=== PATIENT | male | born 1970 | race African-American/Black ===

== ENCOUNTER 2016-11-27 11:07 | Inpatient (IN) | payer OTHER ==
[2016-11-27 11:32] VITALS: BMI 31.4
--- NOTE | 2016-11-27 12:51 | HP ---
COWS - Scale Resting Pulse: 0= OR 80 or Below Sweatin=Flushed/Facial Moisture Restless Observation: 1= Difficult to Sit Still Pupil Size: 0= Normal to Room Light Bone or Joint Aches: 2= Severe Diffuse Aches Runny Nose/ Eye Tearin= Runny Nose/Eyes GI Upset > 30mins: 1= Stomach Cramp Tremor Observation: 2= Slight Tremor Visible Yawning Observation: 2= >3x During Session Anxiety or Irritability: 2=Irritable/Anxious Goose Flesh Skin: 3=Piloerection COWS Score: 17 CIWA Score - CIWA Score Nausea/Vomitin-Mild Nausea/No Vomiting Muscle Tremors: 4-Moderate,w/Arms Extend Anxiety: 4-Mod. Anxious/Guarded Agitation: 4-Moderately Restless Paroxysmal Sweats: 3 Orientation: 0-Oriented Tacttile Disturbances: 0-None Auditory Disturbances: 0-None Visual Disturbances: 0-None Headache: 2-Mild CIWA-Ar Total Score: 18 Admission ROS BHS - HPI Chief Complaint: I am ready to detox Allergies/Adverse Reactions: Allergies Allergy/AdvReac Type Severity Reaction Status Date / Time No Known Allergies Allergy Verified 11/27/16 12:01 History of Present Illness: pt is a 46yr old male with a history of alcohol and heroin dependence seeking detox for treatment. Exam Limitations: No Limitations - Ebola screening Have you traveled outside of the country in the last 21 days: No Have you had contact with anyone from an Ebola affected area: No Have you been sick,other than usual withdrawal symptoms: No Do you have a fever: No - Review of Systems Constitutional: Chills, Diaphoresis, Loss of Appetite, Night Sweats, Unintentional Wgt. Loss EENT: reports: Tearing, Nose Congestion Respiratory: reports: Cough, Productive cough (yellowish/) GI: reports: No Symptoms Reported, Diarrhea, Poor Appetite, Poor Fluid Intake : reports: No Symptoms Reported Musculoskeletal: reports: No Symptoms Reported Integumentary: reports: Flushing, Sweating Neuro: reports: Headache Endocrine: reports: Excessive Sweating, Flushing, Intolerance to Cold, Intolerance to Heat Hematology: reports: No Symptoms Reported Psychiatric: reports: Judgement Intact, Mood/Affect Appropiate, Orientated x3, Agitated, Anxious Other Systems: Reviewed and Negative Patient History - Patient Medical History Hx Anemia: No Hx Asthma: No Hx Chronic Obstructive Pulmonary Disease (COPD): No Hx Cancer: No Hx Cardiac Disorders: No Hx Congestive Heart Failure: No Hx Hypertension: No Hx Hypercholesterolemia: No Hx Pacemaker: No HX Cerebrovascular Accident: No Hx Seizures: No Hx Dementia: No Hx Diabetes: No Hx Gastrointestinal Disorders: No Hx Liver Disease: No Hx Genitourinary Disorders: No Hx Sexually Transmitted Disorders: No Hx Renal Disease (ESRD): No Hx Thyroid Disease: No Hx Human Immunodeficiency Virus (HIV): No (NEGATIVE HX) Hx Hepatitis C: No Hx Depression: No Hx Suicide Attempt: No Hx Bipolar Disorder: No Hx Schizophrenia: No - Patient Surgical History Past Surgical History: No Hx Neurologic Surgery: No Hx Cataract Extraction: No Hx Cardiac Surgery: No Hx Lung Surgery: No Hx Breast Surgery: No Hx Breast Biopsy: No Hx Abdominal Surgery: No Hx Appendectomy: No Hx Cholecystectomy: No Hx Genitourinary Surgery: No Hx Section: No Hx Orthopedic Surgery: No Anesthesia Reaction: No - PPD History Previous Implant?: Yes Documented Results: Negative w/proof Implanted On Prior R Admission?: Yes Date: 03/12/16 Results: 0 mm PPD to be Administered?: No - Reproductive History Patient is a Female of Child Bearing Age (11 -55 yrs old): No - Smoking Cessation Smoking history: Current every day smoker Have you smoked in the past 12 months: Yes Aproximately how many cigarettes per day: 5 Hx Chewing Tobacco Use: No Initiated information on smoking cessation: Yes 'Breaking Loose' booklet given: 11/27/16 - Substance & Tx. History Hx Alcohol Use: Yes Hx Substance Use: Yes Substance Use Type: Alcohol, Cocaine, Heroin Hx Substance Use Treatment: Yes - Substances Abused Heroin Route: Inhalation Frequency: Daily Amount used: 10 bags Age of first use: 22 Date of Last Use: 11/27/16 Cocaine Route: Inhalation Frequency: 1-3 times last 30 days Amount used: $20 Age of first use: 28 Date of Last Use: 11/25/16 Alcohol-cognac/beer Route: Oral Frequency: Daily Amount used: 1 pt./1-6 pk. Age of first use: 23 Date of Last Use: 11/27/16 Family Disease History - Family Disease History Family Disease History: Heart Disease: Mother Admission Physical Exam BHS - Vital Signs Vital Signs: Vital Signs - 24 hr 11/27/16 11:31 Temperature 95.0 F L Pulse Rate 70 Respiratory 20 Rate Blood Pressure 160/93 - Physical General Appearance: Yes: Appropriately Dressed, Moderate Distress, Tremorous, Irritable, Sweating, Anxious HEENTM: Yes: Normal Voice, Nasal Congestion, Rhinorrhea Respiratory: Yes: Lungs Clear, Normal Breath Sounds, No Respiratory Distress Neck: Yes: No masses,lesions,Nodules Breast: Yes: Within Normal Limits Cardiology: Yes: Regular Rhythm, Regular Rate, S1, S2 Abdominal: Yes: Normal Bowel Sounds, Non Tender, Soft Genitourinary: Yes: Within Normal Limits Back: Yes: Normal Inspection Musculoskeletal: Yes: full range of Motion Extremities: Yes: Normal Capillary Refill, Normal Inspection, Non-Tender, Tremors Neurological: Yes: Fully Oriented, Alert, Normal Response Integumentary: Yes: Within Normal Limits, Normal Color, Diaphoresis Lymphatic: Yes: Within Normal Limits - Diagnostic (1) Alcohol dependence with uncomplicated withdrawal Current Visit: Yes Status: Chronic (2) Opioid dependence with withdrawal Current Visit: Yes Status: Chronic (3) Nicotine dependence Current Visit: Yes Status: Chronic Qualifiers: Nicotine product type: cigarettes Substance use status: uncomplicated Qualified Code(s): F17.210 - Nicotine dependence, cigarettes, uncomplicated (4) Weight loss Current Visit: Yes Status: Acute Cleared for Admission [facility] - Detox or Rehab [facility] Level of Care: Medically Managed Detox Regimen/Protocol: Methadone/Librium [facility] Breath Alcohol Content Breath Alcohol Content: 0 Urine Drug Screen - Results Drug Screen Negative: No Urine Drug Screen Results: ZION-Cocaine, OPI-Opiates, OXY-Oxycodone
[2016-11-27] MEDS ORDERED: MAGNESIUM HYDROX 2400MG/30ML ORAL SUSPENSION 30 ML CUP PO PRN (14:52)
[2016-11-27] MEDS ORDERED: P-EPHED 60MG/TRIPROLIDI 2.5MG TABLET PO PRN (14:52)
[2016-11-27] MEDS ORDERED: IBUPROFEN 400 MG TABLET (FP) PO PRN (14:52)
[2016-11-27] MEDS ORDERED: ACETAMINOPHEN 325 MG TABLET (FP) PO PRN (14:52)
[2016-11-27] MEDS ORDERED: LOPERAMIDE HCL 2 MG CAPSULE PO PRN (14:52)
[2016-11-27] MEDS ORDERED: MAGNESIUM CITRATE 300 ML BOTTLE PO PRN (14:52)
[2016-11-27] MEDS ORDERED: chlordiazePOXIDE HCL 25 MG CAPSULE PO PRN (14:52)
[2016-11-27] MEDS ORDERED: NICOTINE POLACRILEX 4 MG GUM BUC PRN (14:52)
[2016-11-27] MEDS ORDERED: MAG HYDROX/AL HYDROX/SIMETH 30 ML UNIT-DOSE CUP PO PRN (14:52)
[2016-11-27] MEDS ORDERED: MENTHOL/PHENOL 1 EACH UD MM PRN (14:52)
[2016-11-27] MEDS ORDERED: hydrOXYzine PAMOATE 50 MG CAPSULE (FP) PO PRN (14:52)
[2016-11-27] MEDS ORDERED: chlordiazePOXIDE HCL 25 MG CAPSULE PO ONE (15:15)
[2016-11-27] MEDS ORDERED: METHADONE HCL 10 MG TABLET (FOR DETOX USE ONLY) PO ONE ×2 (15:16→23:00)
--- NOTE | 2016-11-27 17:31 | CONSULT ---
[facility] Psychiatric Consult - Data Date of interview: 11/27/16 Admission source: [facility] Identifying data: Readmission to [facility] for this 46 y/o AA male seeking detox treatment on for alcohol,heroin and cocaine dependence.Patient is single without children,domiciled and employed (self-report). Substance Abuse History: - Smoking Cessation. Smoking history: Current every day smoker. Have you smoked in the past 12 months: Yes. Aproximately how many cigarettes per day: 5. Hx Chewing Tobacco Use: No. Initiated information on smoking cessation: Yes. 'Breaking Loose' booklet given: 11/27/16. - Substance & Tx. History. Hx Alcohol Use: Yes. Hx Substance Use: Yes. Substance Use Type : Alcohol, Cocaine, Heroin. Hx Substance Use Treatment: Yes. - Substances Abused. Heroin. Route: Inhalation. Frequency: Daily. Amount used: 10 bags. Age of first use: 22. Date of Last Use: 11/27/16. Cocaine. Route: Inhalation. Frequency: 1-3 times last 30 days. Amount used: $20. Age of first use: 28. Date of Last Use: 11/25/16. Alcohol-cognac/beer. Route: Oral. Frequency: Daily. Amount used: 1 pt./1-6 pk. Age of first use: 23. Date of Last Use: 11/27/16. Confirmed byb the patient in this session. Medical History: Patient endorses good general health. Psychiatric History: Patient denies.Mr Robertson only admits to a history of admissions to detox/rehabilitation units at various locations. Physical/Sexual Abuse/Trauma History: Patient denies. Additional Comment: Urine Drug Screen Results: ZION-Cocaine, OPI-Opiates, OXY- Oxycodone.Noted. Mental Status Exam - Mental Status Exam Alert and Oriented to: Time, Place, Person Cognitive Function: Good Patient Appearance: Well Groomed Mood: Nervous, Withdrawn Affect: Mood Congruent Patient Behavior: Sedated (mildly), Fatigued, Cooperative Speech Pattern: Clear Voice Loudness: Normal Thought Process: Goal Oriented Thought Disorder: Not Present Hallucinations: Denies Suicidal Ideation: Denies Homicidal Ideation: Denies Insight/Judgement: Poor Sleep: Fair Appetite: Good Muscle strength/Tone: Normal Gait/Station: Normal Psychiatric Findings - Problem List ([place] 1, 2,3) (1) Alcohol dependence with uncomplicated withdrawal Current Visit: Yes Status: Acute (2) Nicotine dependence Current Visit: Yes Status: Acute Qualifiers: Nicotine product type: cigarettes Substance use status: uncomplicated Qualified Code(s): F17.210 - Nicotine dependence, cigarettes, uncomplicated (3) Opioid dependence with withdrawal Current Visit: Yes Status: Acute (4) Cocaine dependence Current Visit: Yes Status: Acute (5) Substance induced mood disorder Current Visit: Yes Status: Acute - Initial Treatment Plan Initial Treatment Plan: Psychoeducation.Detoxification.Observation.
[2016-11-27] MEDS: chlordiazePOXIDE HCL 25 MG CAPSULE PO SCH ×2 (19:02→22:37)
[2016-11-27] MEDS: diphenhydrAMINE HCL 50 MG CAPSULE PO PRN (22:37)
[2016-11-27] MEDS: THIAMINE HCL 100 MG TABLET (FP) PO SCH (22:37)
[2016-11-28 03:16] LABS: URINE APPEARANCE SLCLOUDY; URINE BILIRUBIN NEGATIVE (NEGATIVE); URINE BLOOD NEGATIVE (NEGATIVE); URINE COLOR AMBER; URINE GLUCOSE (UA) NEGATIVE (NEGATIVE); URINE KETONE TRACE (NEGATIVE); URINE LEUK ESTERASE NEGATIVE (NEGATIVE); URINE NITRITE NEGATIVE (NEGATIVE); URINE PROTEIN NEGATIVE (NEGATIVE); URINE UROBILINOGEN NEGATIVE E.U./dl (0.2-1.0)
[2016-11-28] MEDS: chlordiazePOXIDE HCL 25 MG CAPSULE PO SCH ×4 (05:56→22:28)
[2016-11-28] MEDS ORDERED: METHADONE HCL 10 MG TABLET (FOR DETOX USE ONLY) PO SCH (10:00)
[2016-11-28] MEDS: PRENATAL VITAMINS W/ FOLIC ACID TABLET (FP) PO SCH (10:27)
[2016-11-28] MEDS: NICOTINE 21 MG/24 HOURS TOPICAL PATCH TD SCH (10:29)
[2016-11-28 11:11] LABS: ALBUMIN 4.1 g/dl (3.4-5.0); CALCIUM 9.3 mg/dL (8.5-10.1); CREATININE 1.5 mg/dL (0.7-1.3); MCH 32.4 pg (25.7-33.7); MEAN CELL VOLUME 95.2 fl (80-96); MEAN PLT VOLUME 8.1 fl (7.5-11.1); PLATELET COUNT 241 K/MM3 (134-434); WHITE BLOOD COUNT 5.6 K/mm3 (4.0-10.0)
[2016-11-28 11:13] LABS: BILIRUBIN,TOTAL 1.1 mg/dL (0.2-1.0); TOT PROT 7.3 g/dl (6.4-8.2)
--- NOTE | 2016-11-28 11:41 | PN ---
[facility] CIWA - CIWA Score Nausea/Vomitin Muscle Tremors: 3 Anxiety: 3 Agitation: 2 Paroxysmal Sweats: 1-Minimal Palms Moist Orientation: 0-Oriented Tacttile Disturbances: 1-Very Mild Itch/Numbness Auditory Disturbances: 1-Very Mild Visual Disturbances: 1-Very Mild Sensitivity Headache: 2-Mild CIWA-Ar Total Score: 17 BHS COWS - Scale Resting Pulse: 0= [place] 80 or Below Sweatin= Chills/Flushing Restless Observation: 3= Extraneous Movement Pupil Size: 1= Pupils >than Normal Bone or Joint Aches: 2= Severe Diffuse Aches Runny Nose/ Eye Tearin= Runny Nose/Eyes GI Upset > 30mins: 3= Vomiting/Diarrhea Tremor Observation of Outstretched Hands: 2= Slight Tremor Visible Yawning Observation: 1= 1-2x During Session Anxiety or Irritability: 2=Irritable/Anxious Goose Flesh Skin: 0=Smooth Skin COWS Score: 17 [facility] Progress Note (SOAP) Subjective: ALERT,IRRITABLE,ANXIOUS,INTERRUPTED SLEEP,TREMOR,PAIN IN THE BODY AND BACK Objective: 11/28/16 11:40 Vital Signs Temperature 97.7 F 11/28/16 09:42 Pulse Rate 70 11/28/16 09:42 Respiratory Rate 18 11/28/16 09:42 Blood Pressure 133/85 11/28/16 09:42 O2 Sat by Pulse Oximetry (%) EKG NSR,NORMAL ECG Laboratory Last Values WBC 5.6 K/mm3 (4.0-10.0) 11/28/16 06:20 RBC 4.46 M/mm3 (4.00-5.60) 11/28/16 06:20 Hgb 14.4 GM/dL (11.7-16.9) 11/28/16 06:20 Hct 42.4 % (35.4-49) 11/28/16 06:20 MCV 95.2 fl (80-96) 11/28/16 06:20 MCHC 34.0 g/dl (32.0-35.9) 11/28/16 06:20 RDW 13.0 % (11.9-15.9) 11/28/16 06:20 Plt Count 241 K/MM3 (134-434) 11/28/16 06:20 MPV 8.1 fl (7.5-11.1) 11/28/16 06:20 Sodium 140 mmol/L (136-145) 11/28/16 06:20 Potassium 3.9 mmol/L (3.5-5.1) 11/28/16 06:20 Chloride 102 mmol/L (98-107) 11/28/16 06:20 Carbon Dioxide 31 mmol/L (21-32) 11/28/16 06:20 Anion Gap 7 (8-16) L 11/28/16 06:20 BUN 16 mg/dL (7-18) 11/28/16 06:20 Creatinine 1.5 mg/dL (0.7-1.3) H D 11/28/16 06:20 Creat Clearance w eGFR 49.95 (>60) 11/28/16 06:20 Random Glucose 84 mg/dL (74-106) 11/28/16 06:20 Calcium 9.3 mg/dL (8.5-10.1) 11/28/16 06:20 Total Bilirubin 1.1 mg/dL (0.2-1.0) H D 11/28/16 06:20 AST 16 U/L (15-37) 11/28/16 06:20 ALT 21 U/L (12-78) 11/28/16 06:20 Alkaline Phosphatase 78 U/L (45-117) 11/28/16 06:20 Total Protein 7.3 g/dl (6.4-8.2) 11/28/16 06:20 Albumin 4.1 g/dl (3.4-5.0) 11/28/16 06:20 Urine Color Ketty 11/27/16 23:05 Urine Appearance Slcloudy 11/27/16 23:05 Urine pH 5.0 (5.0-8.0) D 11/27/16 23:05 Ur Specific [place] 1.033 (1.001-1.035) 11/27/16 23:05 Urine Protein Negative (NEGATIVE) 11/27/16 23:05 Urine Glucose (UA) Negative (NEGATIVE) 11/27/16 23:05 Urine Ketones Trace (NEGATIVE) H 11/27/16 23:05 Urine Blood Negative (NEGATIVE) 11/27/16 23:05 Urine Nitrite Negative (NEGATIVE) 11/27/16 23:05 Urine Bilirubin Negative (NEGATIVE) 11/27/16 23:05 Urine Urobilinogen Negative E.U./dl (0.2-1.0) 11/27/16 23:05 Ur Leukocyte Esterase Negative (NEGATIVE) 11/27/16 23:05 LABS PENDING Assessment: 11/28/16 11:41 WITHDRAWAL SYMPTOM Plan: CONTINUE DETOX
[2016-11-28] MEDS: guaiFENesin/D-METHORPHAN HB 10 ML UNIT-DOSE CUPS PO PRN ×2 (11:48→22:29)
--- NOTE | 2016-11-28 13:40 | EKG ---
Test Reason : Blood Pressure : / mmHG Vent. Rate : 061 BPM Atrial Rate : 061 BPM P-R Int : 174 ms QRS Dur : 106 ms QT Int : 386 ms P-R-T Axes : 064 051 044 degrees QTc Int : 388 ms NORMAL SINUS RHYTHM INCOMPLETE RBBB NO PREVIOUS ECGS AVAILABLE Confirmed by DIPTI ROBERTS MD ([id number]) on 11/28/2016 1:40:33 PM Referred By: Charli Parekh Confirmed By:DIPTI ROBERTS MD
[2016-11-28] MEDS: AMOX TR/POT CLAV 875MG/125MG TABLETS (FP) PO SCH (17:46)
[2016-11-28] MEDS: THIAMINE HCL 100 MG TABLET (FP) PO SCH (22:29)
[2016-11-29] MEDS: chlordiazePOXIDE HCL 25 MG CAPSULE PO SCH ×2 (05:20→10:18)
[2016-11-29] MEDS: AMOX TR/POT CLAV 875MG/125MG TABLETS (FP) PO SCH ×2 (08:01→17:29)
[2016-11-29] MEDS: PRENATAL VITAMINS W/ FOLIC ACID TABLET (FP) PO SCH (10:18)
[2016-11-29] MEDS: METHADONE HCL 5 MG TABLET (FOR DETOX USE ONLY) PO SCH (10:18)
[2016-11-29] MEDS: NICOTINE 21 MG/24 HOURS TOPICAL PATCH TD SCH (10:19)
[2016-11-29] MEDS: guaiFENesin/D-METHORPHAN HB 10 ML UNIT-DOSE CUPS PO PRN (12:15)
--- NOTE | 2016-11-29 14:15 | PN ---
[facility] CIWA - CIWA Score Nausea/Vomitin-No Nausea/No Vomiting Muscle Tremors: 4-Moderate,w/Arms Extend Anxiety: 3 Agitation: 3 Paroxysmal Sweats: 3 Orientation: 0-Oriented Tacttile Disturbances: 0-None Auditory Disturbances: 0-None Visual Disturbances: 0-None Headache: 0-None Present CIWA-Ar Total Score: 13 BHS COWS - Scale Resting Pulse: 0= ID 80 or Below Sweatin=Flushed/Facial Moisture Restless Observation: 1= Difficult to Sit Still Pupil Size: 0= Normal to Room Light Bone or Joint Aches: 1= Mild Discomfort Runny Nose/ Eye Tearin= Runny Nose/Eyes GI Upset > 30mins: 2= Nausea/Diarrhea Tremor Observation of Outstretched Hands: 2= Slight Tremor Visible Yawning Observation: 1= 1-2x During Session Anxiety or Irritability: 2=Irritable/Anxious Goose Flesh Skin: 0=Smooth Skin COWS Score: 13 [facility] Progress Note (SOAP) Subjective: anxiety,tremors,sweating,interrupted sleep,restless,muscle aches/spasm Objective: 11/29/16 14:14 Vital Signs - 8 hr 11/29/16 10:00 Temperature 97.9 F Pulse Rate 77 Respiratory 18 Rate Blood Pressure 136/85 Laboratory Tests 11/27/16 11/28/16 11/28/16 23:05 06:20 06:20 WBC 5.6 RBC 4.46 Hgb 14.4 Hct 42.4 MCV 95.2 MCHC 34.0 RDW 13.0 Plt Count 241 MPV 8.1 Sodium 140 Potassium 3.9 Chloride 102 Carbon Dioxide 31 Anion Gap 7 L BUN 16 Creatinine 1.5 H D Creat Clearance w eGFR 49.95 Random Glucose 84 Calcium 9.3 Total Bilirubin 1.1 H D AST 16 ALT 21 Alkaline Phosphatase 78 Total Protein 7.3 Albumin 4.1 Urine Color Ketty Urine Appearance Slcloudy Urine pH 5.0 D Ur Specific [place] 1.033 Urine Protein Negative Urine Glucose (UA) Negative Urine Ketones Trace H Urine Blood Negative Urine Nitrite Negative Urine Bilirubin Negative Urine Urobilinogen Negative Ur Leukocyte Esterase Negative RPR Titer 11/28/16 06:20 WBC RBC Hgb Hct MCV MCHC RDW Plt Count MPV Sodium Potassium Chloride Carbon Dioxide Anion Gap BUN Creatinine Creat Clearance w eGFR Random Glucose Calcium Total Bilirubin AST ALT Alkaline Phosphatase Total Protein Albumin Urine Color Urine Appearance Urine pH Ur Specific [place] Urine Protein Urine Glucose (UA) Urine Ketones Urine Blood Urine Nitrite Urine Bilirubin Urine Urobilinogen Ur Leukocyte Esterase RPR Titer Nonreactive labs noted Assessment: 11/29/16 14:14 withdrawal sx. Plan: continue detox
[2016-11-29] MEDS: chlordiazePOXIDE 5 MG CAPSULE PO SCH ×2 (17:30→22:42)
[2016-11-29] MEDS: THIAMINE HCL 100 MG TABLET (FP) PO SCH (22:41)
[2016-11-29] MEDS: diphenhydrAMINE HCL 50 MG CAPSULE PO PRN (22:41)
[2016-11-30] MEDS: AMOX TR/POT CLAV 875MG/125MG TABLETS (FP) PO SCH ×2 (07:39→17:01)
[2016-11-30] MEDS: chlordiazePOXIDE 5 MG CAPSULE PO SCH ×2 (07:39→10:29)
--- NOTE | 2016-11-30 10:25 | PN ---
BHS Progress Note (SOAP) Subjective: agitation sweats irritable diarrhea Objective: 11/30/16 10:23 Vital Signs Temperature 97.7 F 11/30/16 10:12 Pulse Rate 62 11/30/16 10:12 Respiratory Rate 18 11/30/16 10:12 Blood Pressure 134/85 11/30/16 10:12 O2 Sat by Pulse Oximetry (%) awake/alert ambulating no acute distress Assessment: 11/30/16 10:24 withdrawal sx Plan: continue detox increase fluids immodium prn
[2016-11-30] MEDS: NICOTINE 21 MG/24 HOURS TOPICAL PATCH TD SCH (10:29)
[2016-11-30] MEDS: PRENATAL VITAMINS W/ FOLIC ACID TABLET (FP) PO SCH (10:30)
[2016-11-30] MEDS: METHADONE HCL 5 MG TABLET (FOR DETOX USE ONLY) PO SCH (10:30)
[2016-11-30] MEDS: guaiFENesin/D-METHORPHAN HB 10 ML UNIT-DOSE CUPS PO PRN ×2 (12:47→22:34)
[2016-11-30] MEDS: chlordiazePOXIDE HCL 10 MG CAPSULE PO SCH ×3 (17:01→22:32)
[2016-11-30] MEDS: diphenhydrAMINE HCL 50 MG CAPSULE PO PRN (22:32)
[2016-11-30] MEDS: THIAMINE HCL 100 MG TABLET (FP) PO SCH (22:32)
[2016-12-01] MEDS: chlordiazePOXIDE HCL 10 MG CAPSULE PO SCH ×2 (05:38→10:46)
[2016-12-01] MEDS: AMOX TR/POT CLAV 875MG/125MG TABLETS (FP) PO SCH ×2 (07:49→17:08)
[2016-12-01] MEDS ORDERED: METHADONE HCL 10 MG TABLET (FOR DETOX USE ONLY) PO SCH (10:00)
[2016-12-01] MEDS: PRENATAL VITAMINS W/ FOLIC ACID TABLET (FP) PO SCH (10:46)
[2016-12-01] MEDS: NICOTINE 21 MG/24 HOURS TOPICAL PATCH TD SCH (10:47)
--- NOTE | 2016-12-01 11:51 | PN ---
BHS Progress Note (SOAP) Subjective: sweats Objective: 12/01/16 11:50 Vital Signs Temperature 98.2 F 12/01/16 10:04 Pulse Rate 79 12/01/16 10:04 Respiratory Rate 20 12/01/16 10:04 Blood Pressure 110/94 12/01/16 10:04 O2 Sat by Pulse Oximetry (%) Laboratory Tests 11/27/16 11/28/16 11/28/16 23:05 06:20 06:20 WBC 5.6 RBC 4.46 Hgb 14.4 Hct 42.4 MCV 95.2 MCHC 34.0 RDW 13.0 Plt Count 241 MPV 8.1 Sodium 140 Potassium 3.9 Chloride 102 Carbon Dioxide 31 Anion Gap 7 L BUN 16 Creatinine 1.5 H D Creat Clearance w eGFR 49.95 Random Glucose 84 Calcium 9.3 Total Bilirubin 1.1 H D AST 16 ALT 21 Alkaline Phosphatase 78 Total Protein 7.3 Albumin 4.1 Urine Color Ketty Urine Appearance Slcloudy Urine pH 5.0 D Ur Specific [place] 1.033 Urine Protein Negative Urine Glucose (UA) Negative Urine Ketones Trace H Urine Blood Negative Urine Nitrite Negative Urine Bilirubin Negative Urine Urobilinogen Negative Ur Leukocyte Esterase Negative RPR Titer 11/28/16 06:20 WBC RBC Hgb Hct MCV MCHC RDW Plt Count MPV Sodium Potassium Chloride Carbon Dioxide Anion Gap BUN Creatinine Creat Clearance w eGFR Random Glucose Calcium Total Bilirubin AST ALT Alkaline Phosphatase Total Protein Albumin Urine Color Urine Appearance Urine pH Ur Specific [place] Urine Protein Urine Glucose (UA) Urine Ketones Urine Blood Urine Nitrite Urine Bilirubin Urine Urobilinogen Ur Leukocyte Esterase RPR Titer Nonreactive pt aox3 in nad ambulating Assessment: 12/01/16 11:50 withdrawl sx's Plan: cont. detox increase fluids d/c in am
[2016-12-01] MEDS: guaiFENesin/D-METHORPHAN HB 10 ML UNIT-DOSE CUPS PO PRN (13:39)
[2016-12-01] MEDS: THIAMINE HCL 100 MG TABLET (FP) PO SCH (22:08)
[2016-12-01] MEDS: diphenhydrAMINE HCL 50 MG CAPSULE PO PRN (22:09)
[2016-12-02] MEDS ORDERED: METHADONE HCL 5 MG TABLET (FOR DETOX USE ONLY) PO SCH (06:00)
--- NOTE | 2016-12-02 09:14 | DS ---
[facility] Detox Discharge Summary Admission Date: 11/27/16 Discharge Date: 12/02/16 - History Present History: Alcohol Dependence, Cocaine Dependence, Opioid Dependence - Physical Exam Results Vital Signs: Vital Signs Temperature 98.2 F 12/02/16 06:49 Pulse Rate 64 12/02/16 06:49 Respiratory Rate 16 12/02/16 06:49 Blood Pressure 118/78 12/02/16 06:49 O2 Sat by Pulse Oximetry (%) - Treatment Hospital Course: Detox Protocol Followed, Detoxed Safely, Responded well, Discharged Condition Good, Rehab Referral Accepted - Medication Discharge Medications: Ambulatory Orders NK [No Known Home Medication] 08/16/15 - Diagnosis (1) Alcohol dependence with uncomplicated withdrawal Current Visit: Yes Status: Chronic (2) Opioid dependence with withdrawal Current Visit: Yes Status: Chronic (3) Nicotine dependence Current Visit: Yes Status: Chronic Qualifiers: Nicotine product type: cigarettes Substance use status: uncomplicated Qualified Code(s): F17.210 - Nicotine dependence, cigarettes, uncomplicated (4) Weight loss Current Visit: Yes Status: Acute - AMA Did Patient Leave Against Medical Advice: No
[2016-12-02 10:18] VITALS: BP 137/78; PULSE 72; TEMP 98.1
== END 2016-12-02 10:08 | disposition home or self-care (01) | DRG 773 ==
LOC: YASAS 11:07 → Y6N 13:14
PROVIDERS: ADMIT Internal Medicine; ATTEND Internal Medicine
PROC: HZ2ZZZZ Detoxification Services for Substance Abuse Treatment (ICD-10-PCS; principal; 2016-12-02)
DX: F11.23 Opioid dependence with withdrawal (principal); F10.230 Alcohol dependence with withdrawal, uncomplicated; F14.20 Cocaine dependence, uncomplicated; F19.24 Other psychoactive substance dependence with psychoactive substance-induced mood disorder; R63.4 Abnormal weight loss; Z68.31 Body mass index [BMI] 31.0-31.9, adult
CPT/HCPCS: 36415; 80053; 81003; 85027; 86593; 93005; 93010

== ENCOUNTER 2017-01-01 13:14 | Inpatient (IN) | payer OTHER ==
--- NOTE | 2017-01-01 16:55 | HP ---
COWS - Scale Resting Pulse: 0= [place] 80 or Below Sweatin=Flushed/Facial Moisture Restless Observation: 1= Difficult to Sit Still Pupil Size: 0= Normal to Room Light Bone or Joint Aches: 2= Severe Diffuse Aches Runny Nose/ Eye Tearin= Runny Nose/Eyes GI Upset > 30mins: 2= Nausea/Diarrhea Tremor Observation: 2= Slight Tremor Visible Yawning Observation: 2= >3x During Session Anxiety or Irritability: 2=Irritable/Anxious Goose Flesh Skin: 3=Piloerection COWS Score: 18 CIWA Score - CIWA Score Nausea/Vomitin-Mild Nausea/No Vomiting Muscle Tremors: 4-Moderate,w/Arms Extend Anxiety: 4-Mod. Anxious/Guarded Agitation: 4-Moderately Restless Paroxysmal Sweats: 3 Orientation: 0-Oriented Tacttile Disturbances: 0-None Auditory Disturbances: 0-None Visual Disturbances: 0-None Headache: 1-Very Mild CIWA-Ar Total Score: 17 Admission ROS BHS - HPI Chief Complaint: I need to stop using and get my life back. Allergies/Adverse Reactions: Allergies Allergy/AdvReac Type Severity Reaction Status Date / Time No Known Allergies Allergy Verified 01/01/17 16:37 History of Present Illness: pt is a 46yr old male with a chronic history of alcohol and heroin dependence seeking detox for treatment. Exam Limitations: No Limitations - Ebola screening Have you traveled outside of the country in the last 21 days: No Have you had contact with anyone from an Ebola affected area: No Have you been sick,other than usual withdrawal symptoms: No Do you have a fever: No - Review of Systems Constitutional: Chills, Diaphoresis, Loss of Appetite, Night Sweats, Changes in sleep, Unintentional Wgt. Loss EENT: reports: Blurred Vision, Tearing, Nose Congestion Respiratory: reports: No Symptoms reported Cardiac: reports: Lightheadedness GI: reports: Poor Appetite, Poor Fluid Intake : reports: No Symptoms Reported Musculoskeletal: reports: Back Pain, Joint Pain Integumentary: reports: Flushing, Sweating Endocrine: reports: Excessive Sweating, Flushing, Intolerance to Cold, Intolerance to Heat Hematology: reports: No Symptoms Reported Psychiatric: reports: Judgement Intact, Mood/Affect Appropiate, Orientated x3, Agitated, Anxious Other Systems: Reviewed and Negative Patient History - Patient Medical History Hx Anemia: No Hx Asthma: No Hx Chronic Obstructive Pulmonary Disease (COPD): No Hx Cancer: No Hx Cardiac Disorders: No Hx Congestive Heart Failure: No Hx Hypertension: No Hx Hypercholesterolemia: No Hx Pacemaker: No HX Cerebrovascular Accident: No Hx Seizures: No Hx Dementia: No Hx Diabetes: No Hx Gastrointestinal Disorders: No Hx Liver Disease: No Hx Genitourinary Disorders: No Hx Sexually Transmitted Disorders: No Hx Renal Disease (ESRD): No Hx Thyroid Disease: No Hx Human Immunodeficiency Virus (HIV): No (NEGATIVE HX) Hx Hepatitis C: No (negative) Hx Depression: No Hx Suicide Attempt: No Hx Bipolar Disorder: No Hx Schizophrenia: No - Patient Surgical History Past Surgical History: No Hx Neurologic Surgery: No Hx Cataract Extraction: No Hx Cardiac Surgery: No Hx Lung Surgery: No Hx Breast Surgery: No Hx Breast Biopsy: No Hx Abdominal Surgery: No Hx Appendectomy: No Hx Cholecystectomy: No Hx Genitourinary Surgery: No Hx Section: No Hx Orthopedic Surgery: No Anesthesia Reaction: No - PPD History Previous Implant?: Yes Documented Results: Negative w/proof Implanted On Prior R Admission?: Yes Date: 03/12/16 Results: 0 mm PPD to be Administered?: No - Reproductive History Patient is a Female of Child Bearing Age (11 -55 yrs old): No - Smoking Cessation Smoking history: Current every day smoker Have you smoked in the past 12 months: Yes Aproximately how many cigarettes per day: 5 Hx Chewing Tobacco Use: No Initiated information on smoking cessation: Yes 'Breaking Loose' booklet given: 01/01/17 - Substance & Tx. History Hx Alcohol Use: Yes Hx Substance Use: Yes Substance Use Type: Alcohol, Heroin Hx Substance Use Treatment: Yes - Substances Abused Heroin Route: Inhalation Frequency: Daily Amount used: 10 bags Age of first use: 22 Date of Last Use: 01/01/17 Alcohol-cognac Route: Oral Frequency: Daily Amount used: 1/2 ptShayan bateman Age of first use: 26 Date of Last Use: 12/31/16 Family Disease History - Family Disease History Family Disease History: Heart Disease: Mother Admission Physical Exam BHS - Vital Signs Vital Signs: Vital Signs - 24 hr 01/01/17 15:24 Temperature 98 F Pulse Rate 67 Respiratory 20 Rate Blood Pressure 133/83 - Physical General Appearance: Yes: Appropriately Dressed, Mild Distress, Tremorous, Irritable, Sweating, Anxious HEENTM: Yes: Hearing grossly Normal, Normal Voice, Nasal Congestion, Rhinorrhea Respiratory: Yes: Lungs Clear, Normal Breath Sounds, No Respiratory Distress Neck: Yes: No masses,lesions,Nodules Breast: Yes: Within Normal Limits Cardiology: Yes: Regular Rhythm, Regular Rate, S1, S2 Abdominal: Yes: Normal Bowel Sounds, Non Tender, Soft Genitourinary: Yes: Within Normal Limits Back: Yes: Normal Inspection Musculoskeletal: Yes: Within Normal Limits, Gait Steady, Back pain Extremities: Yes: Normal Capillary Refill, Non-Tender, Tremors Neurological: Yes: Fully Oriented, Alert, Normal Response Integumentary: Yes: Normal Color, Diaphoresis Lymphatic: Yes: Within Normal Limits - Diagnostic (1) Cocaine dependence Current Visit: Yes Status: Chronic Qualifiers: Substance use status: uncomplicated Qualified Code(s): F14.20 - Cocaine dependence, uncomplicated (2) Weight loss Current Visit: Yes Status: Chronic (3) Alcohol dependence with uncomplicated withdrawal Current Visit: Yes Status: Chronic (4) Nicotine dependence Current Visit: Yes Status: Chronic Qualifiers: Nicotine product type: cigarettes Substance use status: uncomplicated Qualified Code(s): F17.210 - Nicotine dependence, cigarettes, uncomplicated (5) Opioid dependence with withdrawal Current Visit: Yes Status: Chronic Cleared for Admission [facility] - Detox or Rehab [facility] Level of Care: Medically Managed Detox Regimen/Protocol: Methadone/Librium [facility] Breath Alcohol Content Breath Alcohol Content: 0 Urine Drug Screen - Results Drug Screen Negative: No Urine Drug Screen Results: ZION-Cocaine, OPI-Opiates
[2017-01-01] MEDS ORDERED: IBUPROFEN 400 MG TABLET (FP) PO PRN (16:59)
[2017-01-01] MEDS ORDERED: P-EPHED 60MG/TRIPROLIDI 2.5MG TABLET PO PRN (16:59)
[2017-01-01] MEDS ORDERED: ACETAMINOPHEN 325 MG TABLET (FP) PO PRN (16:59)
[2017-01-01] MEDS ORDERED: chlordiazePOXIDE HCL 25 MG CAPSULE PO PRN (16:59)
[2017-01-01] MEDS ORDERED: MAGNESIUM CITRATE 300 ML BOTTLE PO PRN (16:59)
[2017-01-01] MEDS ORDERED: MAGNESIUM HYDROX 2400MG/30ML ORAL SUSPENSION 30 ML CUP PO PRN (16:59)
[2017-01-01] MEDS ORDERED: MAG HYDROX/AL HYDROX/SIMETH 30 ML UNIT-DOSE CUP PO PRN (16:59)
[2017-01-01] MEDS ORDERED: LOPERAMIDE HCL 2 MG CAPSULE PO PRN (16:59)
[2017-01-01] MEDS ORDERED: guaiFENesin/D-METHORPHAN HB 10 ML UNIT-DOSE CUPS PO PRN (16:59)
[2017-01-01] MEDS ORDERED: MENTHOL/PHENOL 1 EACH UD MM PRN (16:59)
[2017-01-01] MEDS ORDERED: chlordiazePOXIDE HCL 25 MG CAPSULE PO ONE (18:00)
[2017-01-01] MEDS ORDERED: METHADONE HCL 10 MG TABLET (FOR DETOX USE ONLY) PO ONE ×2 (18:00→23:00)
[2017-01-01] MEDS: chlordiazePOXIDE HCL 25 MG CAPSULE PO SCH ×2 (19:18→22:04)
[2017-01-01] MEDS: hydrOXYzine PAMOATE 50 MG CAPSULE (FP) PO PRN (19:22)
[2017-01-01] MEDS: diphenhydrAMINE HCL 50 MG CAPSULE PO PRN (22:04)
[2017-01-01] MEDS: THIAMINE HCL 100 MG TABLET (FP) PO SCH (22:04)
[2017-01-01 22:32] LABS: URINE APPEARANCE CLEAR; URINE BILIRUBIN NEGATIVE (NEGATIVE); URINE BLOOD NEGATIVE (NEGATIVE); URINE COLOR YELLOW; URINE GLUCOSE (UA) NEGATIVE (NEGATIVE); URINE KETONE NEGATIVE (NEGATIVE); URINE LEUK ESTERASE NEGATIVE (NEGATIVE); URINE NITRITE NEGATIVE (NEGATIVE); URINE PROTEIN NEGATIVE (NEGATIVE); URINE UROBILINOGEN NEGATIVE E.U./dl (0.2-1.0)
[2017-01-02] MEDS: chlordiazePOXIDE HCL 25 MG CAPSULE PO SCH ×4 (06:09→23:23)
[2017-01-02] MEDS ORDERED: METHADONE HCL 10 MG TABLET (FOR DETOX USE ONLY) PO SCH (10:00)
[2017-01-02] MEDS: PRENATAL VITAMINS W/ FOLIC ACID TABLET (FP) PO SCH (10:11)
[2017-01-02 10:38] LABS: MCH 31.6 pg (25.7-33.7); MCHC 33.1 g/dl (32.0-35.9); MEAN CELL VOLUME 95.5 fl (80-96); MEAN PLT VOLUME 8.2 fl (7.5-11.1); PLATELET COUNT 261 K/MM3 (134-434); RDW 12.7 % (11.9-15.9); WHITE BLOOD COUNT 4.6 K/mm3 (4.0-10.0)
[2017-01-02 12:08] LABS: ALBUMIN 4.2 g/dl (3.4-5.0); BILIRUBIN,TOTAL 1.9 mg/dL (0.2-1.0); CALCIUM 9.1 mg/dL (8.5-10.1); CREATININE 1.3 mg/dL (0.7-1.3); TOT PROT 7.9 g/dl (6.4-8.2)
[2017-01-02] MEDS: hydrOXYzine PAMOATE 50 MG CAPSULE (FP) PO PRN ×2 (13:09→17:43)
--- NOTE | 2017-01-02 13:45 | PN ---
S CIWA - CIWA Score Nausea/Vomitin Muscle Tremors: 3 Anxiety: 2 Agitation: 3 Paroxysmal Sweats: 3 Orientation: 0-Oriented Tacttile Disturbances: 2-Mild Itch/Numbness/Burn Auditory Disturbances: 0-None Visual Disturbances: 2-Mild Sensitivity Headache: 0-None Present CIWA-Ar Total Score: 18 BHS COWS - Scale Resting Pulse: 0= [place] 80 or Below Sweatin= Chills/Flushing Restless Observation: 1= Difficult to Sit Still Pupil Size: 0= Normal to Room Light Bone or Joint Aches: 1= Mild Discomfort Runny Nose/ Eye Tearin= None GI Upset > 30mins: 2= Nausea/Diarrhea Tremor Observation of Outstretched Hands: 2= Slight Tremor Visible Yawning Observation: 1= 1-2x During Session Anxiety or Irritability: 2=Irritable/Anxious Goose Flesh Skin: 3=Piloerection COWS Score: 13 BHS Progress Note (SOAP) Subjective: Interrupted sleep, Sweating, Tremors, Nausea, Stomach Cramping. Objective: PT. A & O X 3. 01/02/17 13:44 Vital Signs Temperature 97.1 F L 01/02/17 13:03 Pulse Rate 79 01/02/17 13:03 Respiratory Rate 18 01/02/17 13:03 Blood Pressure 146/97 01/02/17 13:03 O2 Sat by Pulse Oximetry (%) Laboratory Last Values WBC 4.6 K/mm3 (4.0-10.0) 01/02/17 06:00 RBC 4.89 M/mm3 (4.00-5.60) 01/02/17 06:00 Hgb 15.5 GM/dL (11.7-16.9) 01/02/17 06:00 Hct 46.7 % (35.4-49) 01/02/17 06:00 MCV 95.5 fl (80-96) 01/02/17 06:00 MCHC 33.1 g/dl (32.0-35.9) 01/02/17 06:00 RDW 12.7 % (11.9-15.9) 01/02/17 06:00 Plt Count 261 K/MM3 (134-434) 01/02/17 06:00 MPV 8.2 fl (7.5-11.1) 01/02/17 06:00 Sodium 137 mmol/L (136-145) 01/02/17 06:00 Potassium 4.3 mmol/L (3.5-5.1) 01/02/17 06:00 Chloride 99 mmol/L (98-107) 01/02/17 06:00 Carbon Dioxide 32 mmol/L (21-32) 01/02/17 06:00 Anion Gap 6 (8-16) L 01/02/17 06:00 BUN 15 mg/dL (7-18) 01/02/17 06:00 Creatinine 1.3 mg/dL (0.7-1.3) 01/02/17 06:00 Creat Clearance w eGFR 58.92 (>60) 01/02/17 06:00 Random Glucose 89 mg/dL (74-106) 01/02/17 06:00 Calcium 9.1 mg/dL (8.5-10.1) 01/02/17 06:00 Total Bilirubin 1.9 mg/dL (0.2-1.0) H D 01/02/17 06:00 AST 20 U/L (15-37) D 01/02/17 06:00 ALT 26 U/L (12-78) D 01/02/17 06:00 Alkaline Phosphatase 77 U/L (45-117) 01/02/17 06:00 Total Protein 7.9 g/dl (6.4-8.2) 01/02/17 06:00 Albumin 4.2 g/dl (3.4-5.0) 01/02/17 06:00 Urine Color Yellow 01/01/17 21:37 Urine Appearance Clear 01/01/17 21:37 Urine pH 7.0 (5.0-8.0) D 01/01/17 21:37 Ur Specific [place] 1.026 (1.001-1.035) 01/01/17 21:37 Urine Protein Negative (NEGATIVE) 01/01/17 21:37 Urine Glucose (UA) Negative (NEGATIVE) 01/01/17 21:37 Urine Ketones Negative (NEGATIVE) 01/01/17 21:37 Urine Blood Negative (NEGATIVE) 01/01/17 21:37 Urine Nitrite Negative (NEGATIVE) 01/01/17 21:37 Urine Bilirubin Negative (NEGATIVE) 01/01/17 21:37 Urine Urobilinogen Negative E.U./dl (0.2-1.0) 01/01/17 21:37 Ur Leukocyte Esterase Negative (NEGATIVE) 01/01/17 21:37 LABS NOTED. Assessment: 01/02/17 13:45 WITHDRAWAL SYMPTOMS. Plan: CONTINUE DETOX.
[2017-01-02] MEDS: diphenhydrAMINE HCL 50 MG CAPSULE PO PRN (22:12)
[2017-01-02] MEDS: THIAMINE HCL 100 MG TABLET (FP) PO SCH (22:12)
[2017-01-03] MEDS: chlordiazePOXIDE HCL 25 MG CAPSULE PO SCH ×2 (05:31→10:14)
--- NOTE | 2017-01-03 08:48 | PN ---
S CIWA - CIWA Score Nausea/Vomitin Muscle Tremors: 2 Anxiety: 3 Agitation: 3 Paroxysmal Sweats: No Perspiration Orientation: 0-Oriented Tacttile Disturbances: 0-None Auditory Disturbances: 0-None Visual Disturbances: 0-None Headache: 3-Moderate CIWA-Ar Total Score: 14 BHS COWS - Scale Resting Pulse: 0= [place] 80 or Below Sweatin= Chills/Flushing Restless Observation: 1= Difficult to Sit Still Pupil Size: 1= Pupils >than Normal Bone or Joint Aches: 2= Severe Diffuse Aches Runny Nose/ Eye Tearin= Nasal Congestion GI Upset > 30mins: 2= Nausea/Diarrhea Tremor Observation of Outstretched Hands: 1= Tremor [place]by, Not Seen Yawning Observation: 1= 1-2x During Session Anxiety or Irritability: 2=Irritable/Anxious Goose Flesh Skin: 0=Smooth Skin COWS Score: 12 S Progress Note (SOAP) Subjective: Anxiety. Body Aches, Interrupted Sleep, Sweats, Tremors Objective: Vital Signs Temperature 96.8 F L 01/03/17 06:20 Pulse Rate 58 L 01/03/17 06:20 Respiratory Rate 18 01/03/17 06:20 Blood Pressure 117/74 01/03/17 06:20 O2 Sat by Pulse Oximetry (%) Laboratory Last Values WBC 4.6 K/mm3 (4.0-10.0) 01/02/17 06:00 RBC 4.89 M/mm3 (4.00-5.60) 01/02/17 06:00 Hgb 15.5 GM/dL (11.7-16.9) 01/02/17 06:00 Hct 46.7 % (35.4-49) 01/02/17 06:00 MCV 95.5 fl (80-96) 01/02/17 06:00 MCHC 33.1 g/dl (32.0-35.9) 01/02/17 06:00 RDW 12.7 % (11.9-15.9) 01/02/17 06:00 Plt Count 261 K/MM3 (134-434) 01/02/17 06:00 MPV 8.2 fl (7.5-11.1) 01/02/17 06:00 Sodium 137 mmol/L (136-145) 01/02/17 06:00 Potassium 4.3 mmol/L (3.5-5.1) 01/02/17 06:00 Chloride 99 mmol/L (98-107) 01/02/17 06:00 Carbon Dioxide 32 mmol/L (21-32) 01/02/17 06:00 Anion Gap 6 (8-16) L 01/02/17 06:00 BUN 15 mg/dL (7-18) 01/02/17 06:00 Creatinine 1.3 mg/dL (0.7-1.3) 01/02/17 06:00 Creat Clearance w eGFR 58.92 (>60) 01/02/17 06:00 Random Glucose 89 mg/dL (74-106) 01/02/17 06:00 Calcium 9.1 mg/dL (8.5-10.1) 01/02/17 06:00 Total Bilirubin 1.9 mg/dL (0.2-1.0) H D 01/02/17 06:00 AST 20 U/L (15-37) D 01/02/17 06:00 ALT 26 U/L (12-78) D 01/02/17 06:00 Alkaline Phosphatase 77 U/L (45-117) 01/02/17 06:00 Total Protein 7.9 g/dl (6.4-8.2) 01/02/17 06:00 Albumin 4.2 g/dl (3.4-5.0) 01/02/17 06:00 Urine Color Yellow 01/01/17 21:37 Urine Appearance Clear 01/01/17 21:37 Urine pH 7.0 (5.0-8.0) D 01/01/17 21:37 Ur Specific [place] 1.026 (1.001-1.035) 01/01/17 21:37 Urine Protein Negative (NEGATIVE) 01/01/17 21:37 Urine Glucose (UA) Negative (NEGATIVE) 01/01/17 21:37 Urine Ketones Negative (NEGATIVE) 01/01/17 21:37 Urine Blood Negative (NEGATIVE) 01/01/17 21:37 Urine Nitrite Negative (NEGATIVE) 01/01/17 21:37 Urine Bilirubin Negative (NEGATIVE) 01/01/17 21:37 Urine Urobilinogen Negative E.U./dl (0.2-1.0) 01/01/17 21:37 Ur Leukocyte Esterase Negative (NEGATIVE) 01/01/17 21:37 RPR Titer Nonreactive (NONREACTIVE) 01/02/17 06:00 labs noted Assessment: Withdrawal Symptoms Plan: Continue Detox
[2017-01-03] MEDS: METHADONE HCL 5 MG TABLET (FOR DETOX USE ONLY) PO SCH (10:14)
[2017-01-03] MEDS: PRENATAL VITAMINS W/ FOLIC ACID TABLET (FP) PO SCH (10:14)
--- NOTE | 2017-01-03 11:39 | EKG ---
Test Reason : Blood Pressure : / mmHG Vent. Rate : 068 BPM Atrial Rate : 068 BPM P-R Int : 176 ms QRS Dur : 100 ms QT Int : 388 ms P-R-T Axes : 072 062 051 degrees QTc Int : 412 ms NORMAL SINUS RHYTHM POSSIBLE LEFT ATRIAL ENLARGEMENT LEFT VENTRICULAR HYPERTROPHY ABNORMAL ECG WHEN COMPARED WITH ECG OF 27-NOV-2016 14:34, NO SIGNIFICANT CHANGE WAS FOUND Confirmed by PITA LEUNG MD ([id number]) on 01/03/2017 11:39:36 AM Referred By: Confirmed By:PITA LEUNG MD
[2017-01-03] MEDS: hydrOXYzine PAMOATE 50 MG CAPSULE (FP) PO PRN ×2 (12:48→17:33)
[2017-01-03] MEDS: chlordiazePOXIDE 5 MG CAPSULE PO SCH ×2 (17:34→22:09)
[2017-01-03] MEDS: diphenhydrAMINE HCL 50 MG CAPSULE PO PRN (22:09)
[2017-01-03] MEDS: THIAMINE HCL 100 MG TABLET (FP) PO SCH (22:09)
[2017-01-04] MEDS: chlordiazePOXIDE 5 MG CAPSULE PO SCH ×2 (06:09→10:04)
[2017-01-04] MEDS: METHADONE HCL 5 MG TABLET (FOR DETOX USE ONLY) PO SCH (10:04)
[2017-01-04] MEDS: PRENATAL VITAMINS W/ FOLIC ACID TABLET (FP) PO SCH (10:04)
--- NOTE | 2017-01-04 10:20 | PN ---
BHS Progress Note (SOAP) Subjective: Sweating,interrupted sleep,restless Objective: 01/04/17 10:16 Vital Signs - 8 hr 01/04/17 01/04/17 01/04/17 03:23 06:12 09:27 Temperature 96.8 F L 96.1 F L Pulse Rate 64 71 Respiratory 18 16 18 Rate Blood Pressure 130/80 143/88 Laboratory Last Values WBC 4.6 K/mm3 (4.0-10.0) 01/02/17 06:00 RBC 4.89 M/mm3 (4.00-5.60) 01/02/17 06:00 Hgb 15.5 GM/dL (11.7-16.9) 01/02/17 06:00 Hct 46.7 % (35.4-49) 01/02/17 06:00 MCV 95.5 fl (80-96) 01/02/17 06:00 MCHC 33.1 g/dl (32.0-35.9) 01/02/17 06:00 RDW 12.7 % (11.9-15.9) 01/02/17 06:00 Plt Count 261 K/MM3 (134-434) 01/02/17 06:00 MPV 8.2 fl (7.5-11.1) 01/02/17 06:00 Sodium 137 mmol/L (136-145) 01/02/17 06:00 Potassium 4.3 mmol/L (3.5-5.1) 01/02/17 06:00 Chloride 99 mmol/L (98-107) 01/02/17 06:00 Carbon Dioxide 32 mmol/L (21-32) 01/02/17 06:00 Anion Gap 6 (8-16) L 01/02/17 06:00 BUN 15 mg/dL (7-18) 01/02/17 06:00 Creatinine 1.3 mg/dL (0.7-1.3) 01/02/17 06:00 Creat Clearance w eGFR 58.92 (>60) 01/02/17 06:00 Random Glucose 89 mg/dL (74-106) 01/02/17 06:00 Calcium 9.1 mg/dL (8.5-10.1) 01/02/17 06:00 Total Bilirubin 1.9 mg/dL (0.2-1.0) H D 03/18/17 06:00 AST 20 U/L (15-37) D 01/02/17 06:00 ALT 26 U/L (12-78) D 01/02/17 06:00 Alkaline Phosphatase 77 U/L (45-117) 01/02/17 06:00 Total Protein 7.9 g/dl (6.4-8.2) 01/02/17 06:00 Albumin 4.2 g/dl (3.4-5.0) 01/02/17 06:00 Urine Color Yellow 01/01/17 21:37 Urine Appearance Clear 01/01/17 21:37 Urine pH 7.0 (5.0-8.0) D 01/01/17 21:37 Ur Specific [place] 1.026 (1.001-1.035) 01/01/17 21:37 Urine Protein Negative (NEGATIVE) 01/01/17 21:37 Urine Glucose (UA) Negative (NEGATIVE) 01/01/17 21:37 Urine Ketones Negative (NEGATIVE) 01/01/17 21:37 Urine Blood Negative (NEGATIVE) 01/01/17 21:37 Urine Nitrite Negative (NEGATIVE) 01/01/17 21:37 Urine Bilirubin Negative (NEGATIVE) 01/01/17 21:37 Urine Urobilinogen Negative E.U./dl (0.2-1.0) 01/01/17 21:37 Ur Leukocyte Esterase Negative (NEGATIVE) 01/01/17 21:37 RPR Titer Nonreactive (NONREACTIVE) 01/02/17 06:00 labs noted, Assessment: 01/04/17 10:18 Withdrawal sx. Plan: Continue detox
[2017-01-04] MEDS: hydrOXYzine PAMOATE 50 MG CAPSULE (FP) PO PRN ×2 (12:16→17:33)
[2017-01-04] MEDS: chlordiazePOXIDE HCL 10 MG CAPSULE PO SCH ×2 (17:34→22:13)
[2017-01-04] MEDS: THIAMINE HCL 100 MG TABLET (FP) PO SCH (22:03)
[2017-01-04] MEDS: diphenhydrAMINE HCL 50 MG CAPSULE PO PRN (22:03)
[2017-01-05] MEDS: chlordiazePOXIDE HCL 10 MG CAPSULE PO SCH ×2 (06:28→10:04)
--- NOTE | 2017-01-05 09:44 | PN ---
BHS Progress Note (SOAP) Subjective: Sweating,interrupted sleep,restless Objective: 01/05/17 09:43 Vital Signs - 8 hr 01/05/17 01/05/17 03:23 06:15 Temperature 97 F L Pulse Rate 63 Respiratory 18 18 Rate Blood Pressure 128/82 Assessment: 01/05/17 09:43 Withdrawal sx. Plan: Continue detox
[2017-01-05] MEDS ORDERED: METHADONE HCL 10 MG TABLET (FOR DETOX USE ONLY) PO SCH (10:00)
[2017-01-05] MEDS: PRENATAL VITAMINS W/ FOLIC ACID TABLET (FP) PO SCH (10:04)
[2017-01-05] MEDS: hydrOXYzine PAMOATE 50 MG CAPSULE (FP) PO PRN ×2 (12:38→18:34)
[2017-01-05] MEDS: diphenhydrAMINE HCL 50 MG CAPSULE PO PRN (22:04)
[2017-01-05] MEDS: THIAMINE HCL 100 MG TABLET (FP) PO SCH (22:04)
[2017-01-06] MEDS ORDERED: METHADONE HCL 5 MG TABLET (FOR DETOX USE ONLY) PO SCH (06:00)
[2017-01-06 06:33] VITALS: BP 127/83; PULSE 61; TEMP 96.8
[2017-01-06] MEDS: PRENATAL VITAMINS W/ FOLIC ACID TABLET (FP) PO SCH (09:14)
--- NOTE | 2017-01-06 09:27 | PN ---
S Progress Note (SOAP) Subjective: ALERT,NO COMPLAINT Objective: 01/06/17 09:25 Vital Signs Temperature 96.8 F L 01/06/17 06:30 Pulse Rate 61 01/06/17 06:30 Respiratory Rate 18 01/06/17 06:30 Blood Pressure 127/83 01/06/17 06:30 O2 Sat by Pulse Oximetry (%) Assessment: 01/06/17 09:26 DETOX COMPLETED,NO WITHDRAWAL SYMPTOM Plan: DISCHARGE TODAY,FOLLOW UP WITH AFTER CARE PROGRAM ARRANGEMENT
--- NOTE | 2017-01-06 09:30 | DS ---
[facility] Detox Discharge Summary Admission Date: 01/01/17 Discharge Date: 01/06/17 - History Present History: Alcohol Dependence, Cocaine Dependence, Opioid Dependence Additional Comments: FOLLOW UP WITH AFTER CARE PROGRAM ARRANGEMENT Pertinent Past History: WEIGHT LOSS - Physical Exam Results Vital Signs: Vital Signs Temperature 96.8 F L 01/06/17 06:30 Pulse Rate 61 01/06/17 06:30 Respiratory Rate 18 01/06/17 06:30 Blood Pressure 127/83 01/06/17 06:30 O2 Sat by Pulse Oximetry (%) Pertinent Admission Physical Exam Findings: WITHDRAWAL SYMPTOM - Treatment Hospital Course: Detox Protocol Followed, Detoxed Safely, Responded well, Discharged Condition Good, Rehab Referral Accepted Patient has Accepted a Rehab Referral to: [facility] - Medication Discharge Medications: Ambulatory Orders NK [No Known Home Medication] 08/16/15 - Diagnosis (1) Alcohol dependence with uncomplicated withdrawal Current Visit: Yes Status: Chronic (2) Cocaine dependence Current Visit: Yes Status: Chronic Qualifiers: Substance use status: uncomplicated Qualified Code(s): F14.20 - Cocaine dependence, uncomplicated (3) Nicotine dependence Current Visit: Yes Status: Chronic Qualifiers: Nicotine product type: cigarettes Substance use status: uncomplicated Qualified Code(s): F17.210 - Nicotine dependence, cigarettes, uncomplicated (4) Opioid dependence with withdrawal Current Visit: Yes Status: Chronic (5) Weight loss Current Visit: Yes Status: Chronic (6) Alcohol-induced mood disorder Current Visit: No Status: Acute - AMA Did Patient Leave Against Medical Advice: No
== END 2017-01-06 09:22 | disposition home or self-care (01) | DRG 773 ==
LOC: YASAS 13:14 → Y3N 17:48
PROVIDERS: ADMIT Internal Medicine Addiction Medicine; ATTEND Internal Medicine Addiction Medicine
PROC: HZ2ZZZZ Detoxification Services for Substance Abuse Treatment (ICD-10-PCS; principal; 2017-01-01)
DX: F11.23 Opioid dependence with withdrawal (principal); F10.230 Alcohol dependence with withdrawal, uncomplicated; F10.24 Alcohol dependence with alcohol-induced mood disorder; F14.20 Cocaine dependence, uncomplicated; F17.210 Nicotine dependence, cigarettes, uncomplicated; Z87.898 Personal history of other specified conditions
CPT/HCPCS: 36415; 80053; 81003; 85027; 86593; 93005; 93010

== ENCOUNTER 2017-03-22 09:49 | Inpatient (IN) | payer OTHER ==
[2017-03-22 11:37] VITALS: BMI 34.9
--- NOTE | 2017-03-22 12:44 | HP ---
COWS - Scale Resting Pulse: 0= [place] 80 or Below Sweatin=Flushed/Facial Moisture Restless Observation: 3= Extraneous Movement Pupil Size: 2= Moderately Dilated Bone or Joint Aches: 2= Severe Diffuse Aches Runny Nose/ Eye Tearin= Runny Nose/Eyes GI Upset > 30mins: 3= Vomiting/Diarrhea Tremor Observation: 2= Slight Tremor Visible Yawning Observation: 2= >3x During Session Anxiety or Irritability: 2=Irritable/Anxious Goose Flesh Skin: 0=Smooth Skin COWS Score: 20 Admission ROS BHS - HPI Chief Complaint: I NEED HELP TO STOP USING HEROIN Allergies/Adverse Reactions: Allergies Allergy/AdvReac Type Severity Reaction Status Date / Time No Known Allergies Allergy Verified 03/22/17 12:40 History of Present Illness: THIS 46 YEARS OLD MALE WITH HEROIN AND ALCOHOL DEPENDENCE,LAST DETOX [facility] FROM 01/01/17 TO 01/08/17 SEVERAL ADMISSIONS IN THE PAST BUT RELAPSED LONGEST PERIOD SOBRIETY 10 YEARS Exam Limitations: No Limitations - Ebola screening Have you traveled outside of the country in the last 21 days: No Have you had contact with anyone from an Ebola affected area: No Have you been sick,other than usual withdrawal symptoms: No Do you have a fever: No - Review of Systems Constitutional: Chills, Diaphoresis, Loss of Appetite, Malaise, Night Sweats, Changes in sleep, Weakness EENT: reports: Tearing, Nose Congestion Respiratory: reports: No Symptoms reported Cardiac: reports: Palpitations GI: reports: Diarrhea, Nausea, Poor Appetite, Abdominal cramping : reports: No Symptoms Reported Musculoskeletal: reports: Back Pain, Joint Pain, Muscle Pain, Joint Stiffness Integumentary: reports: Dryness Neuro: reports: Headache, Tremors Endocrine: reports: No Symptoms Reported Hematology: reports: No Symptoms Reported Psychiatric: reports: No Sypmtoms Reported Other Systems: Reviewed and Negative Patient History - Patient Medical History Hx Anemia: No Hx Asthma: No Hx Chronic Obstructive Pulmonary Disease (COPD): No Hx Cancer: No Hx Cardiac Disorders: No Hx Congestive Heart Failure: No Hx Hypertension: No Hx Hypercholesterolemia: No Hx Pacemaker: No HX Cerebrovascular Accident: No Hx Seizures: No Hx Dementia: No Hx Diabetes: No Hx Gastrointestinal Disorders: No Hx Liver Disease: No Hx Genitourinary Disorders: No Hx Sexually Transmitted Disorders: No Hx Renal Disease (ESRD): No Hx Thyroid Disease: No Hx Human Immunodeficiency Virus (HIV): No (NEGATIVE HX LAST 10/02) Hx Hepatitis C: No (negative) Hx Depression: No Hx Suicide Attempt: No Hx Bipolar Disorder: No Hx Schizophrenia: No Other Medical History: NO SUICIDAL,NO HOMICIDAL - Patient Surgical History Past Surgical History: No Hx Neurologic Surgery: No Hx Cataract Extraction: No Hx Cardiac Surgery: No Hx Lung Surgery: No Hx Breast Surgery: No Hx Breast Biopsy: No Hx Abdominal Surgery: No Hx Appendectomy: No Hx Cholecystectomy: No Hx Genitourinary Surgery: No Hx Section: No Hx Orthopedic Surgery: No Anesthesia Reaction: No - PPD History Previous Implant?: Yes Documented Results: Negative w/o proof Date: 03/12/16 Results: 0 mm PPD to be Administered?: Yes - Smoking Cessation Smoking history: Current every day smoker Have you smoked in the past 12 months: No Aproximately how many cigarettes per day: 10 Cigars Per Day: 0 Hx Chewing Tobacco Use: No Initiated information on smoking cessation: Yes 'Breaking Loose' booklet given: 03/22/17 - Substance & Tx. History Hx Alcohol Use: Yes Hx Substance Use: No Substance Use Type: Alcohol, Heroin Hx Substance Use Treatment: Yes ([facility] 01/01/17 TO 01/06/17) - Substances Abused Heroin Route: Inhalation Frequency: Daily Amount used: 12-13 bags Age of first use: 22 Date of Last Use: 03/21/17 Alcohol Route: Oral Frequency: 3-6 times per week Amount used: 1 pint cognac Age of first use: 29 Date of Last Use: 03/20/17 Family Disease History - Family Disease History Family Disease History: Heart Disease: Mother Admission Physical Exam [facility] - Vital Signs Vital Signs: Vital Signs - 24 hr 03/22/17 11:35 Temperature 97.3 F L Pulse Rate 73 Respiratory 20 Rate Blood Pressure 148/84 - Physical General Appearance: Yes: Moderate Distress, Tremorous, Irritable, Sweating, Anxious HEENTM: Yes: JATINDER, Nasal Congestion Respiratory: Yes: Within Normal Limits, Lungs Clear, No Respiratory Distress Neck: Yes: Within Normal Limits, Supple, Trachea in good position Breast: Yes: Within Normal Limits Cardiology: Yes: Within Normal Limits, Regular Rhythm, Regular Rate, S1, S2 Abdominal: Yes: Within Normal Limits, Normal Bowel Sounds, Non Tender, Soft Genitourinary: Yes: Within Normal Limits Back: Yes: Normal Inspection, Muscle Spasm Extremities: Yes: Within Normal Limits, Tremors Neurological: Yes: senior storage engineer II-XII NML intact, Alert, Motor Strength 5/5 Integumentary: Yes: Dry Lymphatic: Yes: Within Normal Limits - Diagnostic (1) Alcohol dependence with uncomplicated withdrawal Current Visit: No Status: Chronic (2) Nicotine dependence Current Visit: No Status: Chronic Qualifiers: Nicotine product type: cigarettes Substance use status: uncomplicated Qualified Code(s): F17.210 - Nicotine dependence, cigarettes, uncomplicated (3) Opioid dependence with withdrawal Current Visit: No Status: Chronic Cleared for Admission [facility] - Detox or Rehab [facility] Level of Care: Medically Managed Detox Regimen/Protocol: Methadone/Librium [facility] Breath Alcohol Content Breath Alcohol Content: 0 Urine Drug Screen - Results Drug Screen Negative: No Urine Drug Screen Results: ZION-Cocaine, OPI-Opiates, MTD-Methadone
[2017-03-22] MEDS ORDERED: ACETAMINOPHEN 325 MG TABLET (FP) PO PRN (12:58)
[2017-03-22] MEDS ORDERED: chlordiazePOXIDE HCL 25 MG CAPSULE PO PRN (12:58)
[2017-03-22] MEDS ORDERED: MAGNESIUM CITRATE 300 ML BOTTLE PO PRN (12:58)
[2017-03-22] MEDS ORDERED: MAGNESIUM HYDROX 2400MG/30ML ORAL SUSPENSION 30 ML CUP PO PRN (12:58)
[2017-03-22] MEDS ORDERED: MAG HYDROX/AL HYDROX/SIMETH 30 ML UNIT-DOSE CUP PO PRN (12:58)
[2017-03-22] MEDS ORDERED: LOPERAMIDE HCL 2 MG CAPSULE PO PRN (12:58)
[2017-03-22] MEDS ORDERED: guaiFENesin/D-METHORPHAN HB 10 ML UNIT-DOSE CUPS PO PRN (12:58)
[2017-03-22] MEDS ORDERED: MENTHOL/PHENOL 1 EACH UD MM PRN (12:58)
[2017-03-22] MEDS ORDERED: IBUPROFEN 400 MG TABLET (FP) PO PRN (12:58)
[2017-03-22] MEDS ORDERED: P-EPHED 60MG/TRIPROLIDI 2.5MG TABLET PO PRN (12:58)
[2017-03-22] MEDS ORDERED: chlordiazePOXIDE HCL 25 MG CAPSULE PO ONE (14:00)
[2017-03-22] MEDS ORDERED: METHADONE HCL 10 MG TABLET (FOR DETOX USE ONLY) PO ONE ×2 (14:00→23:00)
[2017-03-22] MEDS: CYCLOBENZAPRINE HCL 10 MG TABLET (FP) PO PRN (17:52)
[2017-03-22 19:01] LABS: URINE APPEARANCE CLEAR; URINE BILIRUBIN NEGATIVE (NEGATIVE); URINE BLOOD NEGATIVE (NEGATIVE); URINE COLOR YELLOW; URINE GLUCOSE (UA) NEGATIVE (NEGATIVE); URINE KETONE NEGATIVE (NEGATIVE); URINE LEUK ESTERASE NEGATIVE (NEGATIVE); URINE NITRITE NEGATIVE (NEGATIVE); URINE PROTEIN NEGATIVE (NEGATIVE); URINE UROBILINOGEN NEGATIVE E.U./dl (0.2-1.0)
[2017-03-22] MEDS: chlordiazePOXIDE HCL 25 MG CAPSULE PO SCH ×2 (21:40→22:11)
[2017-03-22] MEDS: THIAMINE HCL 100 MG TABLET (FP) PO SCH (22:09)
[2017-03-22] MEDS: diphenhydrAMINE HCL 50 MG CAPSULE PO PRN (22:10)
[2017-03-22] MEDS: cloNIDine HCL 0.1 MG TABLET PO SCH (22:10)
[2017-03-23] MEDS: chlordiazePOXIDE HCL 25 MG CAPSULE PO SCH ×2 (06:06→10:07)
[2017-03-23 09:13] LABS: HIV 1 & 2 AB NEGATIVE; HIV 1 AGp24 NEGATIVE
[2017-03-23] MEDS ORDERED: METHADONE HCL 10 MG TABLET (FOR DETOX USE ONLY) PO SCH (10:00)
[2017-03-23] MEDS: cloNIDine HCL 0.1 MG TABLET PO SCH ×2 (10:06→22:08)
[2017-03-23] MEDS: CYCLOBENZAPRINE HCL 10 MG TABLET (FP) PO PRN ×2 (10:06→22:08)
[2017-03-23] MEDS: PRENATAL VITAMINS W/ FOLIC ACID TABLET (FP) PO SCH (10:06)
[2017-03-23 10:10] LABS: MCH 31.1 pg (25.7-33.7); MEAN CELL VOLUME 91.4 fl (80-96); MEAN PLT VOLUME 8.2 fl (7.5-11.1); PLATELET COUNT 222 K/MM3 (134-434); RDW 12.6 % (11.9-15.9); WHITE BLOOD COUNT 4.2 K/mm3 (4.0-10.0)
--- NOTE | 2017-03-23 10:26 | PN ---
S Progress Note Note: pt states he will not be taking any librium because he does not drink everyday and does not have a drinking problem. His main concern/problem is heroin and only prefers to be on a methadone regimen. Pt understands that his libirum will be d/c and pt in agreement.
[2017-03-23 10:46] LABS: BILIRUBIN,TOTAL 1.7 mg/dL (0.2-1.0); CALCIUM 9.1 mg/dL (8.5-10.1); COCKROFT - GAULT 118.14; CREATININE 1.3 mg/dL (0.7-1.3); TOT PROT 7.7 g/dl (6.4-8.2)
--- NOTE | 2017-03-23 12:02 | EKG ---
Test Reason : Blood Pressure : / mmHG Vent. Rate : 071 BPM Atrial Rate : 071 BPM P-R Int : 178 ms QRS Dur : 100 ms QT Int : 396 ms P-R-T Axes : 065 057 044 degrees QTc Int : 430 ms NORMAL SINUS RHYTHM POSSIBLE LEFT ATRIAL ENLARGEMENT BORDERLINE ECG WHEN COMPARED WITH ECG OF 01-JAN-2017 18:28, NO SIGNIFICANT CHANGE WAS FOUND Confirmed by ADELIA MENDOSA MD ([id number]) on 03/23/2017 12:02:11 PM Referred By: Confirmed By:ADELIA MENDOSA MD
[2017-03-23] MEDS ORDERED: chlordiazePOXIDE HCL 25 MG CAPSULE PO SCH (17:00)
[2017-03-23] MEDS: diazePAM 5 MG TABLET PO PRN (19:05)
[2017-03-23] MEDS: THIAMINE HCL 100 MG TABLET (FP) PO SCH (22:09)
[2017-03-23] MEDS: diphenhydrAMINE HCL 50 MG CAPSULE PO PRN (22:09)
--- NOTE | 2017-03-24 09:57 | PN ---
S COWS - Scale Resting Pulse: 0= MO 80 or Below Sweatin=Flushed/Facial Moisture Restless Observation: 0= Sits Still Pupil Size: 0= Normal to Room Light Bone or Joint Aches: 2= Severe Diffuse Aches Runny Nose/ Eye Tearin= Nasal Congestion GI Upset > 30mins: 0= None Tremor Observation of Outstretched Hands: 1= Tremor [place], Not Seen Yawning Observation: 1= 1-2x During Session Anxiety or Irritability: 2=Irritable/Anxious Goose Flesh Skin: 3=Piloerection COWS Score: 12 S Progress Note (SOAP) Subjective: irritable agitation i dont want to take any librium sweats body aches Objective: 03/23/17 09:55 Vital Signs - 24 hr 03/23/17 03/23/17 03/23/17 10:49 14:05 17:22 Temperature 97.7 F 97 F L 97.5 F L Pulse Rate 77 66 66 Respiratory 16 20 18 Rate Blood Pressure 122/77 131/77 137/67 03/23/17 03/24/17 03/24/17 23:22 00:30 03:30 Temperature 97.3 F L Pulse Rate 74 Respiratory 16 18 18 Rate Blood Pressure 120/61 03/24/17 06:00 Temperature 96.3 F L Pulse Rate 70 Respiratory 18 Rate Blood Pressure 119/56 Laboratory Tests 03/22/17 03/22/17 03/23/17 15:00 17:51 06:00 WBC 4.2 RBC 4.80 Hgb 14.9 Hct 43.9 MCV 91.4 MCHC 34.0 RDW 12.6 Plt Count 222 MPV 8.2 Sodium Potassium Chloride Carbon Dioxide Anion Gap BUN Creatinine Creat Clearance w eGFR Random Glucose Calcium Total Bilirubin AST ALT Alkaline Phosphatase Total Protein Albumin Urine Color Yellow Urine Appearance Clear Urine pH 5.0 D Ur Specific [place] >= 1.030 H Urine Protein Negative Urine Glucose (UA) Negative Urine Ketones Negative Urine Blood Negative Urine Nitrite Negative Urine Bilirubin Negative Urine Urobilinogen Negative Ur Leukocyte Esterase Negative RPR Titer HIV 1&2 Antibody Screen Negative HIV P24 Antigen Negative 03/23/17 03/23/17 06:00 06:00 WBC RBC Hgb Hct MCV MCHC RDW Plt Count MPV Sodium 139 Potassium 4.4 Chloride 102 Carbon Dioxide 29 Anion Gap 8 BUN 15 Creatinine 1.3 Creat Clearance w eGFR 58.92 Random Glucose 80 Calcium 9.1 Total Bilirubin 1.7 H AST 50 H D ALT 39 D Alkaline Phosphatase 81 Total Protein 7.7 Albumin 4.0 Urine Color Urine Appearance Urine pH Ur Specific [place] Urine Protein Urine Glucose (UA) Urine Ketones Urine Blood Urine Nitrite Urine Bilirubin Urine Urobilinogen Ur Leukocyte Esterase RPR Titer Nonreactive HIV 1&2 Antibody Screen HIV P24 Antigen awake/alert ambulating no acute distress Assessment: 03/23/17 09:56 withdrawal sx Plan: continue detox with methadone regimen librium discontinued as per pt request increase fluids
--- NOTE | 2017-03-24 10:00 | PN ---
BHS COWS - Scale Resting Pulse: 0= [place] 80 or Below Sweatin=Flushed/Facial Moisture Restless Observation: 1= Difficult to Sit Still Pupil Size: 0= Normal to Room Light Bone or Joint Aches: 1= Mild Discomfort Runny Nose/ Eye Tearin= Nasal Congestion GI Upset > 30mins: 0= None Tremor Observation of Outstretched Hands: 2= Slight Tremor Visible Yawning Observation: 1= 1-2x During Session Anxiety or Irritability: 2=Irritable/Anxious Goose Flesh Skin: 0=Smooth Skin COWS Score: 10 BHS Progress Note (SOAP) Subjective: sweats irritable body aches feeling better Objective: 03/24/17 09:59 Vital Signs Temperature 96.3 F L 03/24/17 06:00 Pulse Rate 70 03/24/17 06:00 Respiratory Rate 18 03/24/17 06:00 Blood Pressure 119/56 03/24/17 06:00 O2 Sat by Pulse Oximetry (%) Laboratory Tests 03/22/17 03/22/17 03/23/17 15:00 17:51 06:00 WBC 4.2 RBC 4.80 Hgb 14.9 Hct 43.9 MCV 91.4 MCHC 34.0 RDW 12.6 Plt Count 222 MPV 8.2 Sodium Potassium Chloride Carbon Dioxide Anion Gap BUN Creatinine Creat Clearance w eGFR Random Glucose Calcium Total Bilirubin AST ALT Alkaline Phosphatase Total Protein Albumin Urine Color Yellow Urine Appearance Clear Urine pH 5.0 D Ur Specific [place] >= 1.030 H Urine Protein Negative Urine Glucose (UA) Negative Urine Ketones Negative Urine Blood Negative Urine Nitrite Negative Urine Bilirubin Negative Urine Urobilinogen Negative Ur Leukocyte Esterase Negative RPR Titer HIV 1&2 Antibody Screen Negative HIV P24 Antigen Negative 03/23/17 03/23/17 06:00 06:00 WBC RBC Hgb Hct MCV MCHC RDW Plt Count MPV Sodium 139 Potassium 4.4 Chloride 102 Carbon Dioxide 29 Anion Gap 8 BUN 15 Creatinine 1.3 Creat Clearance w eGFR 58.92 Random Glucose 80 Calcium 9.1 Total Bilirubin 1.7 H AST 50 H D ALT 39 D Alkaline Phosphatase 81 Total Protein 7.7 Albumin 4.0 Urine Color Urine Appearance Urine pH Ur Specific [place] Urine Protein Urine Glucose (UA) Urine Ketones Urine Blood Urine Nitrite Urine Bilirubin Urine Urobilinogen Ur Leukocyte Esterase RPR Titer Nonreactive HIV 1&2 Antibody Screen HIV P24 Antigen awake/alert ambulating no acute distress Assessment: 03/24/17 09:59 withdrawal sx Plan: continue detox increase fluids
[2017-03-24] MEDS: CYCLOBENZAPRINE HCL 10 MG TABLET (FP) PO PRN ×2 (10:17→22:22)
[2017-03-24] MEDS: METHADONE HCL 5 MG TABLET (FOR DETOX USE ONLY) PO SCH (10:17)
[2017-03-24] MEDS: diazePAM 5 MG TABLET PO PRN ×3 (10:17→22:22)
[2017-03-24] MEDS: PRENATAL VITAMINS W/ FOLIC ACID TABLET (FP) PO SCH (10:17)
[2017-03-24] MEDS: cloNIDine HCL 0.1 MG TABLET PO SCH ×2 (10:17→22:22)
[2017-03-24] MEDS ORDERED: chlordiazePOXIDE 5 MG CAPSULE PO SCH (17:00)
[2017-03-24] MEDS: hydrOXYzine PAMOATE 50 MG CAPSULE (FP) PO PRN (18:09)
[2017-03-24] MEDS: THIAMINE HCL 100 MG TABLET (FP) PO SCH (22:22)
[2017-03-24] MEDS: diphenhydrAMINE HCL 50 MG CAPSULE PO PRN (22:23)
[2017-03-25] MEDS: cloNIDine HCL 0.1 MG TABLET PO SCH ×2 (10:20→22:43)
[2017-03-25] MEDS: PRENATAL VITAMINS W/ FOLIC ACID TABLET (FP) PO SCH (10:20)
[2017-03-25] MEDS: CYCLOBENZAPRINE HCL 10 MG TABLET (FP) PO PRN ×2 (10:20→22:45)
[2017-03-25] MEDS: METHADONE HCL 5 MG TABLET (FOR DETOX USE ONLY) PO SCH (10:20)
--- NOTE | 2017-03-25 10:49 | PN ---
BHS Progress Note (SOAP) Subjective: little sweats agitation but feeling fine Objective: 03/25/17 10:49 Vital Signs Temperature 97.7 F 03/25/17 09:44 Pulse Rate 72 03/25/17 09:44 Respiratory Rate 18 03/25/17 09:44 Blood Pressure 123/72 03/25/17 09:44 O2 Sat by Pulse Oximetry (%) awake/alert ambulating no acute distress Assessment: 03/25/17 10:49 withdrawal sx Plan: continue detox increase fluids
[2017-03-25] MEDS ORDERED: chlordiazePOXIDE HCL 10 MG CAPSULE PO SCH (17:00)
[2017-03-25] MEDS: THIAMINE HCL 100 MG TABLET (FP) PO SCH (22:43)
[2017-03-25] MEDS: hydrOXYzine PAMOATE 50 MG CAPSULE (FP) PO PRN (22:45)
[2017-03-26] MEDS ORDERED: METHADONE HCL 10 MG TABLET (FOR DETOX USE ONLY) PO SCH (10:00)
--- NOTE | 2017-03-26 10:14 | PN ---
BHS Progress Note (SOAP) Subjective: little sweats feeling better Objective: 03/26/17 10:12 Vital Signs Temperature 97.7 F L 03/26/17 10:00 Pulse Rate 69 03/26/17 10:00 Respiratory Rate 16 03/26/17 10:00 Blood Pressure 125/74 03/26/17 10:00 O2 Sat by Pulse Oximetry (%) awake/alert ambulating no acute distress Assessment: 03/26/17 10:14 withdrawal sx Plan: continue detox increase fluids d/c in am
[2017-03-26] MEDS: PRENATAL VITAMINS W/ FOLIC ACID TABLET (FP) PO SCH (10:20)
[2017-03-26] MEDS: cloNIDine HCL 0.1 MG TABLET PO SCH ×2 (10:20→22:20)
[2017-03-26] MEDS: diphenhydrAMINE HCL 50 MG CAPSULE PO PRN (22:20)
[2017-03-26] MEDS: THIAMINE HCL 100 MG TABLET (FP) PO SCH (22:20)
[2017-03-26] MEDS: CYCLOBENZAPRINE HCL 10 MG TABLET (FP) PO PRN (22:20)
[2017-03-27] MEDS ORDERED: METHADONE HCL 5 MG TABLET (FOR DETOX USE ONLY) PO SCH (06:00)
[2017-03-27 06:21] VITALS: BP 141/87; PULSE 67; TEMP 97.3
--- NOTE | 2017-03-27 09:35 | PN ---
S Progress Note (SOAP) Subjective: ALERT,NO COMPLAINT Objective: 03/27/17 09:34 Vital Signs Temperature 97.3 F L 03/27/17 06:20 Pulse Rate 67 03/27/17 06:20 Respiratory Rate 18 03/27/17 06:20 Blood Pressure 141/87 03/27/17 06:20 O2 Sat by Pulse Oximetry (%) Assessment: 03/27/17 09:34 DETOX COMPLETED,NO WITHDRAWAL SYMPTOM Plan: DISCHARGE TODAY,FOLLOW UP WITH AFTER CARE PROGRAM ARRANGEMENT
--- NOTE | 2017-03-27 09:36 | DS ---
[facility] Detox Discharge Summary Admission Date: 03/22/17 Discharge Date: 03/27/17 - History Present History: Alcohol Dependence, Opioid Dependence Additional Comments: FOLLOW UP WITH [facility] Pertinent Past History: NICOTINE DEPENDENCE - Physical Exam Results Vital Signs: Vital Signs Temperature 97.3 F L 03/27/17 06:20 Pulse Rate 67 03/27/17 06:20 Respiratory Rate 18 03/27/17 06:20 Blood Pressure 141/87 03/27/17 06:20 O2 Sat by Pulse Oximetry (%) Pertinent Admission Physical Exam Findings: WITHDRAWAL SYMPTOM - Treatment Hospital Course: Detox Protocol Followed, Detoxed Safely, Responded well, Discharged Condition Good, Rehab Referral Accepted Patient has Accepted a Rehab Referral to: [facility] - Medication Discharge Medications: Ambulatory Orders NK [No Known Home Medication] 08/16/15 - Diagnosis (1) Alcohol dependence with uncomplicated withdrawal Current Visit: No Status: Chronic (2) Nicotine dependence Current Visit: No Status: Chronic Qualifiers: Nicotine product type: cigarettes Substance use status: uncomplicated Qualified Code(s): F17.210 - Nicotine dependence, cigarettes, uncomplicated (3) Opioid dependence with withdrawal Current Visit: No Status: Chronic - AMA Did Patient Leave Against Medical Advice: No
== END 2017-03-27 09:52 | disposition home or self-care (01) | DRG 773 ==
LOC: YASAS 09:49 → Y6N 13:08
PROVIDERS: ADMIT Internal Medicine; ATTEND Internal Medicine
PROC: HZ2ZZZZ Detoxification Services for Substance Abuse Treatment (ICD-10-PCS; principal; 2017-03-22)
DX: F11.23 Opioid dependence with withdrawal (principal); F10.230 Alcohol dependence with withdrawal, uncomplicated; F17.210 Nicotine dependence, cigarettes, uncomplicated
CPT/HCPCS: 36415; 80053; 81003; 85027; 86593; 87389; 93005; 93010; J0735

== ENCOUNTER 2017-05-20 09:48 | Inpatient (IN) | payer OTHER ==
[2017-05-20 10:36] VITALS: BMI 36.9
--- NOTE | 2017-05-20 13:24 | HP ---
Admission [facility] - [facility] Chief Complaint: REHAB TX FOR ALCOHOL AND DRUGS DEPENDENCE Allergies/Adverse Reactions: Allergies Allergy/AdvReac Type Severity Reaction Status Date / Time No Known Allergies Allergy Verified 05/20/17 12:58 History of Present Illness: 46 Y/O AA/MALE WITH A HX OF HEROIN AND ALCOHOL DEPENDENCE SEEKING REHAB TX. PT STATES HE WAS LEFT DETOX AT [facility] TWO WEEKS AGO. Exam Limitations: No Limitations - Ebola screening Have you traveled outside of the country in the last 21 days: No Have you had contact with anyone from an Ebola affected area: No Have you been sick,other than usual withdrawal symptoms: No Do you have a fever: No - Review of Systems Constitutional: Chills, Night Sweats, Changes in sleep EENT: reports: Tearing, Nose Congestion Respiratory: reports: No Symptoms reported Cardiac: reports: Lightheadedness GI: reports: Constipated, Diarrhea, Nausea, Poor Fluid Intake, Vomiting : reports: Frequency Musculoskeletal: reports: Back Pain, Joint Pain, Muscle Pain Integumentary: reports: No Symptoms Reported Neuro: reports: Headache, Numbness, Tingling, Tremors, Unsteady Gait, Dizziness Endocrine: reports: No Symptoms Reported Hematology: reports: No Symptoms Reported Psychiatric: reports: Orientated x3, Anxious Other Systems: Reviewed and Negative Patient History - Patient Medical History Hx Anemia: No Hx Asthma: No Hx Chronic Obstructive Pulmonary Disease (COPD): No Hx Cancer: No Hx Cardiac Disorders: No Hx Congestive Heart Failure: No Hx Hypertension: No Hx Hypercholesterolemia: No Hx Pacemaker: No HX Cerebrovascular Accident: No Hx Seizures: No Hx Dementia: No Hx Diabetes: No Hx Gastrointestinal Disorders: No Hx Liver Disease: No Hx Genitourinary Disorders: No Hx Sexually Transmitted Disorders: No (DENIES) Hx Renal Disease (ESRD): No Hx Thyroid Disease: No Hx Human Immunodeficiency Virus (HIV): No (NEGATIVE HX LAST 10/02) Hx Hepatitis C: No (NEGATIVE) Hx Depression: No Hx Suicide Attempt: No (DENIES) Hx Bipolar Disorder: No Hx Schizophrenia: No - Patient Surgical History Past Surgical History: No Hx Neurologic Surgery: No Hx Cataract Extraction: No Hx Cardiac Surgery: No Hx Lung Surgery: No Hx Breast Surgery: No Hx Breast Biopsy: No Hx Abdominal Surgery: No Hx Appendectomy: No Hx Cholecystectomy: No Hx Genitourinary Surgery: No Hx Orthopedic Surgery: No Anesthesia Reaction: No - PPD History Previous Implant?: Yes Documented Results: Negative w/proof Implanted On Prior R Admission?: Yes Date: 03/24/17 Results: 0 mm PPD to be Administered?: No - Reproductive History Patient is a Female of Child Bearing Age (11 -55 yrs old): No (MALE) Patient : (N/A) - Smoking Cessation Smoking history: Current every day smoker Have you smoked in the past 12 months: No Aproximately how many cigarettes per day: 10 Cigars Per Day: 0 Hx Chewing Tobacco Use: No Initiated information on smoking cessation: Yes 'Breaking Loose' booklet given: 05/20/17 - Substance & Tx. History Hx Alcohol Use: Yes (JIAN) Hx Substance Use: Yes (HEROIN/COCAINE) Substance Use Type: Alcohol, Cocaine, Heroin Hx Substance Use Treatment: Yes ( LAST TX AT [facility]OX 2 WEEKS AGO) - Substances Abused Heroin Route: Inhalation Frequency: Daily Amount used: 1 bag Age of first use: 22 Date of Last Use: 05/18/17 Alcohol-cognac Route: Oral Frequency: Daily Amount used: 1/2 cup Age of first use: 28 Date of Last Use: 05/18/17 Family Disease History - Family Disease History Family Disease History: Heart Disease: Mother Admission Physical Exam S - Vital Signs Vital Signs: Vital Signs - 24 hr 05/20/17 10:34 Temperature 97.8 F Pulse Rate 67 Respiratory 19 Rate Blood Pressure 150/78 - Physical General Appearance: Yes: Moderate Distress, Irritable, Anxious HEENTM: Yes: EOMI, Normocephalic, JATINDER, Pharynx Normal Respiratory: Yes: Chest Non-Tender, Lungs Clear, Normal Breath Sounds, No Respiratory Distress Neck: Yes: No masses,lesions,Nodules, Supple, Trachea in good position Breast: Yes: Breast Exam Deferred Cardiology: Yes: Regular Rhythm, Regular Rate, S1, S2 Abdominal: Yes: Normal Bowel Sounds, Non Tender, Soft Genitourinary: Yes: Other (N/C) Back: Yes: Within Normal Limits Musculoskeletal: Yes: full range of Motion, Gait Steady Extremities: Yes: Normal Range of Motion, Non-Tender Neurological: Yes: rubber insulator II-XII NML intact, Fully Oriented, Alert, Motor Strength 5/5 Integumentary: Yes: Dry, Warm Lymphatic: Yes: Within Normal Limits - Diagnostic (1) Alcohol dependence with uncomplicated withdrawal Current Visit: Yes Status: Chronic (2) Cocaine dependence Current Visit: Yes Status: Chronic Qualifiers: Substance use status: uncomplicated Qualified Code(s): F14.20 - Cocaine dependence, uncomplicated (3) Nicotine dependence Current Visit: Yes Status: Acute Qualifiers: Nicotine product type: cigarettes Substance use status: in withdrawal Qualified Code(s): F17.213 - Nicotine dependence, cigarettes, with withdrawal (4) Opioid dependence with withdrawal Current Visit: Yes Status: Chronic Cleared for Admission BHS - Detox or Rehab Claeared for Rehab Admission: Yes S Breath Alcohol Content Breath Alcohol Content: 0 Urine Drug Screen - Results Drug Screen Negative: No Urine Drug Screen Results: ZION-Cocaine, OPI-Opiates, MTD-Methadone
[2017-05-20] MEDS ORDERED: MENTHOL/PHENOL 1 EACH UD MM PRN (13:32)
[2017-05-20] MEDS ORDERED: guaiFENesin/D-METHORPHAN HB 10 ML UNIT-DOSE CUPS PO PRN (13:32)
[2017-05-20] MEDS ORDERED: ACETAMINOPHEN 325 MG TABLET (FP) PO PRN (13:32)
[2017-05-20] MEDS ORDERED: hydrOXYzine PAMOATE 50 MG CAPSULE (FP) PO PRN (13:32)
[2017-05-20] MEDS ORDERED: MAG HYDROX/AL HYDROX/SIMETH 30 ML UNIT-DOSE CUP PO PRN (13:32)
[2017-05-20] MEDS ORDERED: MAGNESIUM HYDROX 2400MG/30ML ORAL SUSPENSION 30 ML CUP PO PRN (13:32)
[2017-05-20] MEDS ORDERED: MAGNESIUM CITRATE 300 ML BOTTLE PO PRN (13:32)
[2017-05-20] MEDS ORDERED: NICOTINE POLACRILEX 2 MG GUM BUC PRN (13:32)
[2017-05-20] MEDS ORDERED: P-EPHED 60MG/TRIPROLIDI 2.5MG TABLET PO PRN (13:32)
[2017-05-20] MEDS ORDERED: LOPERAMIDE HCL 2 MG CAPSULE PO PRN (13:32)
[2017-05-20] MEDS ORDERED: diphenhydrAMINE HCL 50 MG CAPSULE PO PRN (13:32)
[2017-05-20] MEDS ORDERED: IBUPROFEN 400 MG TABLET (FP) PO PRN (13:32)
[2017-05-20] MEDS: NICOTINE 14 MG/24 HOURS TOPICAL PATCH TD SCH (14:40)
[2017-05-20 15:30] LABS: MCH 31.2 pg (25.7-33.7); MCHC 34.5 g/dl (32.0-35.9); MEAN CELL VOLUME 90.4 fl (80-96); PLATELET COUNT 230 K/MM3 (134-434); RDW 12.9 % (11.9-15.9); WHITE BLOOD COUNT 6.1 K/mm3 (4.0-10.0)
[2017-05-20 15:41] LABS: ALBUMIN 3.8 g/dl (3.4-5.0); ANION GAP 4 (8-16); CALCIUM 9.1 mg/dL (8.5-10.1); CO2 32 mmol/L (21-32); CREATININE 1.3 mg/dL (0.7-1.3); GLUCOSE,RANDOM 111 mg/dL (74-106); SGOT/AST 32 U/L (15-37); SGPT/ALT 38 U/L (12-78)
[2017-05-20 15:43] LABS: ALK PHOS 76 U/L (45-117); BILIRUBIN,TOTAL 0.8 mg/dL (0.2-1.0); TOT PROT 7.5 g/dl (6.4-8.2)
[2017-05-20] MEDS ORDERED: THIAMINE HCL 100 MG TABLET (FP) PO SCH (22:00)
[2017-05-20 23:07] LABS: URINE APPEARANCE CLEAR; URINE BILIRUBIN NEGATIVE (NEGATIVE); URINE BLOOD NEGATIVE (NEGATIVE); URINE COLOR YELLOW; URINE GLUCOSE (UA) NEGATIVE (NEGATIVE); URINE KETONE NEGATIVE (NEGATIVE); URINE LEUK ESTERASE NEGATIVE (NEGATIVE); URINE NITRITE NEGATIVE (NEGATIVE); URINE PROTEIN NEGATIVE (NEGATIVE); URINE UROBILINOGEN NEGATIVE mg/dL (0.2-1.0)
[2017-05-21 07:18] VITALS: BP 144/88; PULSE 77
[2017-05-21 07:19] VITALS: TEMP 98.5
[2017-05-21] MEDS: NICOTINE 14 MG/24 HOURS TOPICAL PATCH TD SCH (09:58)
[2017-05-21] MEDS ORDERED: PRENATAL VITAMINS W/ FOLIC ACID TABLET (FP) PO SCH (10:00)
--- NOTE | 2017-05-21 10:27 | HP ---
Psychiatrist Admission - Data Date of interview: 05/21/17 Admission source: [facility] Identifying data: This is the first 5N inpatient rehabilitation admission for this 46 year old Black male residing in [place] and supported by [facility]. Medical History: Reports a good physical health, smokes 10 cigarettes a day. Psychiatric History: Denies history of psychiatric treatment. Physical/Sexual Abuse/Trauma History: Denies history of sexual, physivcal and verbal abuse. Vital Signs: Vital Signs - 24 hr 05/20/17 05/20/17 05/21/17 10:34 14:42 00:43 Temperature 97.8 F 97.8 F Pulse Rate 67 75 Respiratory 19 18 16 Rate Blood Pressure 150/78 144/78 05/21/17 05/21/17 03:30 07:18 Temperature 98.5 F Pulse Rate 77 Respiratory 18 18 Rate Blood Pressure 144/88 Allergies/Adverse Reactions: Allergies Allergy/AdvReac Type Severity Reaction Status Date / Time No Known Allergies Allergy Verified 05/20/17 12:58 Date of last physical exam: 05/20/17 Concur with the findings of this exam: Yes - Substance Abuse/Tx History Hx Alcohol Use: Yes (started at age of 28 ) Hx Substance Use: Yes Substance Use Type: Alcohol (daily 1/2 cup of cognac), Heroin (1 bag daily, started at age of 22) Hx Substance Use Treatment: Yes ([facility]) - Admission Criteria Previous failed treatment: Yes Poor recovery environment: Yes Comorbidities: No Lacks judgement: Yes Mental Status Exam - Mental Status Exam Alert and Oriented to: Time, Place, Person Cognitive Function: Good Patient Appearance: Well Groomed Affect: Appropriate, Mood Congruent, Normal Range Patient Behavior: Cooperative Speech Pattern: Clear, Appropriate Voice Loudness: Normal Thought Process: Intact, Goal Oriented Thought Disorder: Not Present Hallucinations: Denies Suicidal Ideation: Denies Homicidal Ideation: Denies Insight/Judgement: Fair Sleep: Fair Appetite: Fair Muscle strength/Tone: Normal Gait/Station: Normal Psychiatric Findings - Problem List ([place] 1, 2,3) (1) Nicotine dependence Current Visit: Yes Status: Acute Qualifiers: Nicotine product type: cigarettes Substance use status: in withdrawal Qualified Code(s): F17.213 - Nicotine dependence, cigarettes, with withdrawal (2) Opioid dependence Current Visit: Yes Status: Acute (3) Alcohol dependence Current Visit: Yes Status: Acute - Initial Treatment Plan Initial Treatment Plan: will monitor progress as needed.
--- NOTE | 2017-05-21 23:36 | PN ---
S Progress Note Note: RN MADE EDGE BURNISHER AWARE THAT THE PT. LEFT AMA. HE WALKED OFF THE UNIT BEFORE MEETING WITH CLINICAL OR MEDICAL STAFF.
--- NOTE | 2017-05-22 08:16 | EKG ---
Test Reason : Blood Pressure : / mmHG Vent. Rate : 074 BPM Atrial Rate : 074 BPM P-R Int : 182 ms QRS Dur : 102 ms QT Int : 382 ms P-R-T Axes : 063 039 034 degrees QTc Int : 424 ms NORMAL SINUS RHYTHM POSSIBLE LEFT ATRIAL ENLARGEMENT BORDERLINE ECG WHEN COMPARED WITH ECG OF 22-MAR-2017 12:47, NO SIGNIFICANT CHANGE WAS FOUND Confirmed by FREDDIE HOUSTON, SILVIA ([id number]) on 05/22/2017 8:15:56 AM Referred By: RACHANA ELE Confirmed By:SILVIA FRAZIER MD
--- NOTE | 2017-05-24 10:08 | PN ---
S Progress Note Note: patient signed out AMA on 04/20/17, please see medical staff notes
== END 2017-05-21 19:52 | disposition left against medical advice (07) | DRG 770 ==
LOC: YASAS 09:48 → Y5N 13:59
PROVIDERS: ADMIT Psychiatry & Neurology Psychiatry; ATTEND Psychiatry & Neurology Psychiatry
PROC: HZ42ZZZ Group Counseling for Substance Abuse Treatment, Cognitive-Behavioral (ICD-10-PCS; principal; 2017-05-20)
DX: F11.20 Opioid dependence, uncomplicated (principal); F10.20 Alcohol dependence, uncomplicated; F17.213 Nicotine dependence, cigarettes, with withdrawal
CPT/HCPCS: 36415; 80053; 81003; 85027; 86593; 93005; 93010

== ENCOUNTER 2017-08-05 12:16 | Inpatient (IN) | payer OTHER ==
[2017-08-05 12:49] VITALS: BMI 31.9
--- NOTE | 2017-08-05 14:32 | HP ---
CIWA Score - CIWA Score Nausea/Vomitin-Int. Nausea w/Dry Heave Muscle Tremors: 5 Anxiety: 4-Mod. Anxious/Guarded Agitation: 4-Moderately Restless Paroxysmal Sweats: 4-Forehead w/Sweat Beads Orientation: 0-Oriented Tacttile Disturbances: 1-Very Mild Itch/Numbness Auditory Disturbances: 0-None Visual Disturbances: 0-None Headache: 0-None Present CIWA-Ar Total Score: 22 Admission ROS BHS - HPI Chief Complaint: I want to stop drinking, I need detox and rehab. Allergies/Adverse Reactions: Allergies Allergy/AdvReac Type Severity Reaction Status Date / Time No Known Allergies Allergy Verified 08/05/17 14:01 History of Present Illness: 47 y/o AA man requesting detox from alcohol dependence Exam Limitations: No Limitations - Ebola screening Have you traveled outside of the country in the last 21 days: No Have you had contact with anyone from an Ebola affected area: No Have you been sick,other than usual withdrawal symptoms: No Do you have a fever: No - Review of Systems Constitutional: Loss of Appetite, Changes in sleep, Weight Stable EENT: reports: No Symptoms Reported Respiratory: reports: No Symptoms reported Cardiac: reports: No Symptoms Reported GI: reports: Poor Appetite : reports: No Symptoms Reported Musculoskeletal: reports: No Symptoms Reported Integumentary: reports: Sweating Endocrine: reports: No Symptoms Reported Hematology: reports: No Symptoms Reported Psychiatric: reports: No Sypmtoms Reported Other Systems: Reviewed and Negative Patient History - Patient Medical History Hx Anemia: No Hx Asthma: No Hx Chronic Obstructive Pulmonary Disease (COPD): No Hx Cancer: No Hx Cardiac Disorders: No Hx Congestive Heart Failure: No Hx Hypertension: No Hx Hypercholesterolemia: No Hx Pacemaker: No HX Cerebrovascular Accident: No Hx Seizures: No Hx Dementia: No Hx Diabetes: No Hx Gastrointestinal Disorders: No Hx Liver Disease: No Hx Genitourinary Disorders: No Hx Sexually Transmitted Disorders: No Hx Renal Disease (ESRD): No Hx Thyroid Disease: No Hx Human Immunodeficiency Virus (HIV): No (NEGATIVE HX LAST 10/02) Hx Hepatitis C: No (NEGATIVE) Hx Depression: No Hx Suicide Attempt: No Hx Bipolar Disorder: No Hx Schizophrenia: No - Patient Surgical History Past Surgical History: No Hx Neurologic Surgery: No Hx Cataract Extraction: No Hx Cardiac Surgery: No Hx Lung Surgery: No Hx Breast Surgery: No Hx Breast Biopsy: No Hx Abdominal Surgery: No Hx Appendectomy: No Hx Cholecystectomy: No Hx Genitourinary Surgery: No Hx Section: No Hx Orthopedic Surgery: No Anesthesia Reaction: No - PPD History Previous Implant?: Yes Documented Results: Negative w/proof Date: 03/24/17 Results: 0 mm - Reproductive History Patient is a Female of Child Bearing Age (11 -55 yrs old): No - Smoking Cessation Smoking history: Current every day smoker Have you smoked in the past 12 months: No Aproximately how many cigarettes per day: 10 (since age 22, quit for 10 years, started smoking 1 year ago) Cigars Per Day: 0 Hx Chewing Tobacco Use: No Initiated information on smoking cessation: Yes 'Breaking Loose' booklet given: 08/05/17 - Substance & Tx. History Hx Alcohol Use: (1 pint/day of quyen, beers, congac) Substance Use Type: Cocaine Hx Substance Use Treatment: (sniff, started couple years ago, use twice/week) - Substances Abused Alcohol Route: Oral Frequency: Daily Amount used: cognac 1 pint/beer(2-3 cans-16oz cans) Age of first use: 24 Date of Last Use: 08/04/17 Cocaine Route: Inhalation Frequency: 1-2 times per week Amount used: $20 Age of first use: 22 Date of Last Use: 08/04/17 Heroin Route: Inhalation Frequency: Daily Amount used: $130 Age of first use: 22 Date of Last Use: 08/04/17 Family Disease History - Family Disease History Family History: Denies Admission Physical Exam [facility] - Vital Signs Vital Signs: Vital Signs - 24 hr 08/05/17 12:47 Temperature 97.3 F L Pulse Rate 66 Respiratory 20 Rate Blood Pressure 142/82 - Physical General Appearance: Yes: Within Normal Limits HEENTM: Yes: Within Normal Limits Respiratory: Yes: Within Normal Limits, Normal Breath Sounds, No Respiratory Distress Neck: Yes: Within Normal Limits, No masses,lesions,Nodules, Supple, Trachea in good position Breast: Yes: Within Normal Limits, Breasts Symetrical, No Discharge, No masses Cardiology: Yes: Within Normal Limits, Regular Rhythm, Regular Rate, S1, S2 Abdominal: Yes: Within Normal Limits, Normal Bowel Sounds, Non Tender, Soft Genitourinary: Yes: Within Normal Limits Back: Yes: Within Normal Limits, Normal Inspection Musculoskeletal: Yes: Within Normal Limits, full range of Motion, Gait Steady Extremities: Yes: Within Normal Limits, Normal Range of Motion, Tremors Neurological: Yes: Within Normal Limits, jewel diameter gauger II-XII NML intact, Fully Oriented, Alert, Normal Mood/Affect Integumentary: Yes: Within Normal Limits, Normal Color, Warm Lymphatic: Yes: Within Normal Limits - Diagnostic (1) Nicotine dependence Current Visit: Yes Status: Chronic Qualifiers: Nicotine product type: cigarettes Substance use status: in withdrawal Qualified Code(s): F17.213 - Nicotine dependence, cigarettes, with withdrawal; F17.213 - Nicotine dependence, cigarettes, with withdrawal (2) Alcohol dependence with uncomplicated withdrawal Current Visit: Yes Status: Acute (3) Cocaine dependence Current Visit: Yes Status: Chronic Qualifiers: Substance use status: uncomplicated Qualified Code(s): F14.20 - Cocaine dependence, uncomplicated; F14.20 - Cocaine dependence, uncomplicated; F14.20 - Cocaine dependence, uncomplicated (4) Methadone maintenance therapy patient Current Visit: Yes Status: Chronic Cleared for Admission [facility] - Detox or Rehab [facility] Level of Care: Medically Managed Detox Regimen/Protocol: Librium [facility] Breath Alcohol Content Breath Alcohol Content: 0 Urine Drug Screen - Results Drug Screen Negative: No Urine Drug Screen Results: ZION-Cocaine, OPI-Opiates, MTD-Methadone
[2017-08-05] MEDS ORDERED: NICOTINE POLACRILEX 2 MG GUM BC PRN (15:12)
[2017-08-05] MEDS ORDERED: MAG HYDROX/AL HYDROX/SIMETH 30 ML UNIT-DOSE CUP PO PRN (15:12)
[2017-08-05] MEDS ORDERED: LOPERAMIDE HCL 2 MG CAPSULE PO PRN (15:12)
[2017-08-05] MEDS ORDERED: MENTHOL/PHENOL 1 EACH UD MM PRN (15:12)
[2017-08-05] MEDS ORDERED: hydrOXYzine PAMOATE 50 MG CAPSULE (FP) PO PRN (15:12)
[2017-08-05] MEDS ORDERED: IBUPROFEN 400 MG TABLET (FP) PO PRN (15:12)
[2017-08-05] MEDS ORDERED: MAGNESIUM CITRATE 300 ML BOTTLE PO PRN (15:12)
[2017-08-05] MEDS ORDERED: guaiFENesin/D-METHORPHAN HB 10 ML UNIT-DOSE CUPS PO PRN (15:12)
[2017-08-05] MEDS ORDERED: chlordiazePOXIDE HCL 25 MG CAPSULE PO PRN (15:12)
[2017-08-05] MEDS ORDERED: P-EPHED 60MG/TRIPROLIDI 2.5MG TABLET PO PRN (15:12)
[2017-08-05] MEDS ORDERED: MAGNESIUM HYDROX 2400MG/30ML ORAL SUSPENSION 30 ML CUP PO PRN (15:12)
[2017-08-05] MEDS ORDERED: ACETAMINOPHEN 325 MG TABLET (FP) PO PRN (15:12)
[2017-08-05] MEDS: THIAMINE HCL 100 MG TABLET (FP) PO SCH (22:32)
[2017-08-05] MEDS: diphenhydrAMINE HCL 50 MG CAPSULE PO PRN (22:33)
[2017-08-05] MEDS: chlordiazePOXIDE HCL 25 MG CAPSULE PO SCH (22:33)
[2017-08-05 23:25] LABS: URINE APPEARANCE CLOUDY; URINE BILIRUBIN NEGATIVE (NEGATIVE); URINE BLOOD NEGATIVE (NEGATIVE); URINE COLOR YELLOW; URINE GLUCOSE (UA) NEGATIVE (NEGATIVE); URINE KETONE NEGATIVE (NEGATIVE); URINE NITRITE NEGATIVE (NEGATIVE); URINE PROTEIN NEGATIVE (NEGATIVE); URINE UROBILINOGEN NEGATIVE mg/dL (0.2-1.0)
[2017-08-06] MEDS ORDERED: METHADONE HCL 10 MG TABLET ONE (04:43)
[2017-08-06] MEDS ORDERED: METHADONE HCL 40 MG DISPERSABLE TABLET ONE (04:44)
[2017-08-06] MEDS ORDERED: METHADONE HCL 40 MG DISPERSABLE TABLET PO SCH (06:00)
[2017-08-06] MEDS: METHADONE 80 MG, METHADONE 20 MG PO SCH (06:08)
[2017-08-06] MEDS: chlordiazePOXIDE HCL 25 MG CAPSULE PO SCH ×4 (06:08→22:34)
[2017-08-06 09:42] LABS: MCHC 33.8 g/dl (32.0-35.9); MEAN CELL VOLUME 91.6 fl (80-96); MEAN PLT VOLUME 8.6 fl (7.5-11.1); PLATELET COUNT 219 K/MM3 (134-434); RDW 12.9 % (11.9-15.9); WHITE BLOOD COUNT 4.3 K/mm3 (4.0-10.0)
--- NOTE | 2017-08-06 09:58 | EKG ---
Test Reason : Blood Pressure : / mmHG Vent. Rate : 060 BPM Atrial Rate : 060 BPM P-R Int : 170 ms QRS Dur : 102 ms QT Int : 402 ms P-R-T Axes : 070 059 044 degrees QTc Int : 402 ms NORMAL SINUS RHYTHM MINIMAL VOLTAGE CRITERIA FOR LVH, MAY BE NORMAL VARIANT WHEN COMPARED WITH ECG OF 20-MAY-2017 15:28, NO SIGNIFICANT CHANGE WAS FOUND Confirmed by DIPTI ROBERTS MD ([id number]) on 08/06/2017 9:58:12 AM Referred By: Confirmed By:DIPTI ROBERTS MD
[2017-08-06 10:29] LABS: ALBUMIN 3.8 g/dl (3.4-5.0); ANION GAP 5 (8-16); CALCIUM 8.8 mg/dL (8.5-10.1); CO2 32 mmol/L (21-32); GLUCOSE,RANDOM 88 mg/dL (74-106); SGOT/AST 24 U/L (15-37); SGPT/ALT 28 U/L (12-78)
[2017-08-06 10:30] LABS: ALK PHOS 85 U/L (45-117); BILIRUBIN,TOTAL 0.9 mg/dL (0.2-1.0); CREATININE 1.3 mg/dL (0.7-1.3); TOT PROT 7.4 g/dl (6.4-8.2)
[2017-08-06 10:35] LABS: URINE LEUK ESTERASE Negative (NEGATIVE)
[2017-08-06] MEDS: PRENATAL VITAMINS W/ FOLIC ACID TABLET (FP) PO SCH (10:55)
--- NOTE | 2017-08-06 10:56 | PN ---
[facility] CIWA - CIWA Score Nausea/Vomitin-No Nausea/No Vomiting Muscle Tremors: 3 Anxiety: 4-Mod. Anxious/Guarded Agitation: 4-Moderately Restless Paroxysmal Sweats: 1-Minimal Palms Moist Orientation: 0-Oriented Tacttile Disturbances: 3-Moderate Itch/Numb/Burn Auditory Disturbances: 0-None Visual Disturbances: 0-None Headache: 0-None Present CIWA-Ar Total Score: 15 S Progress Note (SOAP) Subjective: ANXIETY,SWEATS,IRRITABILITY,SLIGHTLY DROWSY,FATIGUE. Objective: 08/06/17 10:57 Vital Signs Temperature 98.1 F 08/06/17 06:43 Pulse Rate 64 08/06/17 06:43 Respiratory Rate 18 08/06/17 06:43 Blood Pressure 143/80 08/06/17 06:43 O2 Sat by Pulse Oximetry (%) Laboratory Last Values WBC 4.3 K/mm3 (4.0-10.0) 08/06/17 06:00 RBC 4.41 M/mm3 (4.00-5.60) 08/06/17 06:00 Hgb 13.7 GM/dL (11.7-16.9) 08/06/17 06:00 Hct 40.4 % (35.4-49) 08/06/17 06:00 MCV 91.6 fl (80-96) 08/06/17 06:00 MCH 31.0 pg (25.7-33.7) 08/06/17 06:00 MCHC 33.8 g/dl (32.0-35.9) 08/06/17 06:00 RDW 12.9 % (11.9-15.9) 08/06/17 06:00 Plt Count 219 K/MM3 (134-434) 08/06/17 06:00 MPV 8.6 fl (7.5-11.1) 08/06/17 06:00 Sodium 138 mmol/L (136-145) 08/06/17 06:00 Potassium 4.7 mmol/L (3.5-5.1) D 08/06/17 06:00 Chloride 101 mmol/L (98-107) 08/06/17 06:00 Carbon Dioxide 32 mmol/L (21-32) 08/06/17 06:00 Anion Gap 5 (8-16) L 08/06/17 06:00 BUN 16 mg/dL (7-18) 08/06/17 06:00 Creatinine 1.3 mg/dL (0.7-1.3) 08/06/17 06:00 Creat Clearance w eGFR 58.67 (>60) 08/06/17 06:00 Random Glucose 88 mg/dL (74-106) D 08/06/17 06:00 Calcium 8.8 mg/dL (8.5-10.1) 08/06/17 06:00 Total Bilirubin 0.9 mg/dL (0.2-1.0) 08/06/17 06:00 AST 24 U/L (15-37) D 08/06/17 06:00 ALT 28 U/L (12-78) D 08/06/17 06:00 Alkaline Phosphatase 85 U/L (45-117) 08/06/17 06:00 Total Protein 7.4 g/dl (6.4-8.2) 08/06/17 06:00 Albumin 3.8 g/dl (3.4-5.0) 08/06/17 06:00 Urine Color Yellow 08/05/17 23:00 Urine Appearance Cloudy 08/05/17 23:00 Urine pH 7.0 (5.0-8.0) 08/05/17 23:00 Ur Specific [place] 1.020 (1.005-1.025) 08/05/17 23:00 Urine Protein Negative (NEGATIVE) 08/05/17 23:00 Urine Glucose (UA) Negative (NEGATIVE) 08/05/17 23:00 Urine Ketones Negative (NEGATIVE) 08/05/17 23:00 Urine Blood Negative (NEGATIVE) 08/05/17 23:00 Urine Nitrite Negative (NEGATIVE) 08/05/17 23:00 Urine Bilirubin Negative (NEGATIVE) 08/05/17 23:00 Urine Urobilinogen Negative mg/dL (0.2-1.0) 08/05/17 23:00 Ur Leukocyte Esterase Negative (NEGATIVE) 08/05/17 23:00 Assessment: 08/06/17 10:58 WITHDRAWAL SX Plan: CONTINUE DETOX
[2017-08-06 13:41] LABS: SICKLE CELL SCREEN NEGATIVE (NEGATIVE)
[2017-08-06] MEDS: diphenhydrAMINE HCL 50 MG CAPSULE PO PRN (22:34)
[2017-08-06] MEDS: THIAMINE HCL 100 MG TABLET (FP) PO SCH (22:34)
[2017-08-07] MEDS ORDERED: METHADONE HCL 40 MG DISPERSABLE TABLET ONE (05:00)
[2017-08-07] MEDS ORDERED: METHADONE HCL 10 MG TABLET ONE (05:00)
[2017-08-07] MEDS: chlordiazePOXIDE HCL 25 MG CAPSULE PO SCH ×3 (05:03→17:33)
[2017-08-07] MEDS: METHADONE 80 MG, METHADONE 20 MG PO SCH (05:03)
[2017-08-07] MEDS: PRENATAL VITAMINS W/ FOLIC ACID TABLET (FP) PO SCH (10:55)
--- NOTE | 2017-08-07 12:02 | PN ---
S CIWA - CIWA Score Nausea/Vomitin Muscle Tremors: 4-Moderate,w/Arms Extend Anxiety: 3 Agitation: 3 Paroxysmal Sweats: 4-Forehead w/Sweat Beads Orientation: 0-Oriented Tacttile Disturbances: 0-None Auditory Disturbances: 0-None Visual Disturbances: 0-None Headache: 0-None Present CIWA-Ar Total Score: 16 BHS Progress Note (SOAP) Subjective: Beads of sweats,anxiety,restless,tremors,,interrupted sleep. Objective: 08/07/17 12:01 Vital Signs - 8 hr 08/07/17 08/07/17 06:00 09:56 Temperature 98.1 F 97.9 F Pulse Rate 77 76 Respiratory 18 18 Rate Blood Pressure 122/73 151/82 Laboratory Tests 08/05/17 08/06/17 08/06/17 23:00 06:00 06:00 WBC 4.3 RBC 4.41 Hgb 13.7 Hct 40.4 MCV 91.6 MCH 31.0 MCHC 33.8 RDW 12.9 Plt Count 219 MPV 8.6 Sickle Cell Screen Negative Sodium Potassium Chloride Carbon Dioxide Anion Gap BUN Creatinine Creat Clearance w eGFR Random Glucose Calcium Total Bilirubin AST ALT Alkaline Phosphatase Total Protein Albumin Urine Color Yellow Urine Appearance Cloudy Urine pH 7.0 Ur Specific [place] 1.020 Urine Protein Negative Urine Glucose (UA) Negative Urine Ketones Negative Urine Blood Negative Urine Nitrite Negative Urine Bilirubin Negative Urine Urobilinogen Negative Ur Leukocyte Esterase Negative RPR Titer Hepatitis C Antibody <0.1 08/06/17 08/06/17 06:00 06:00 WBC RBC Hgb Hct MCV MCH MCHC RDW Plt Count MPV Sickle Cell Screen Sodium 138 Potassium 4.7 D Chloride 101 Carbon Dioxide 32 Anion Gap 5 L BUN 16 Creatinine 1.3 Creat Clearance w eGFR 58.67 Random Glucose 88 D Calcium 8.8 Total Bilirubin 0.9 AST 24 D ALT 28 D Alkaline Phosphatase 85 Total Protein 7.4 Albumin 3.8 Urine Color Urine Appearance Urine pH Ur Specific [place] Urine Protein Urine Glucose (UA) Urine Ketones Urine Blood Urine Nitrite Urine Bilirubin Urine Urobilinogen Ur Leukocyte Esterase RPR Titer Nonreactive Hepatitis C Antibody labs noted Assessment: 08/07/17 12:01 Withdrawal sx. Plan: Continue detox
[2017-08-07] MEDS: THIAMINE HCL 100 MG TABLET (FP) PO SCH (22:50)
[2017-08-07] MEDS: chlordiazePOXIDE 5 MG CAPSULE PO SCH (22:52)
[2017-08-08] MEDS ORDERED: METHADONE HCL 40 MG DISPERSABLE TABLET ONE (03:52)
[2017-08-08] MEDS ORDERED: METHADONE HCL 10 MG TABLET ONE (03:52)
[2017-08-08] MEDS: METHADONE 80 MG, METHADONE 20 MG PO SCH (05:48)
[2017-08-08] MEDS: chlordiazePOXIDE 5 MG CAPSULE PO SCH ×3 (05:52→17:50)
[2017-08-08] MEDS: PRENATAL VITAMINS W/ FOLIC ACID TABLET (FP) PO SCH (10:55)
[2017-08-08] MEDS ORDERED: CYCLOBENZAPRINE HCL 10 MG TABLET (FP) PO PRN (12:59)
--- NOTE | 2017-08-08 17:55 | PN ---
[facility] Progress Note (SOAP) Subjective: Chills, interrupted sleep, restless, anxious Objective: 08/08/17 17:52 Last Vital Signs Temp Pulse Resp BP Pulse Ox 97.2 F L 77 18 157/82 08/08/17 13:23 08/08/17 13:23 08/08/17 13:23 08/08/17 13:23 Laboratory Tests 08/05/17 08/06/17 08/06/17 23:00 06:00 06:00 WBC 4.3 RBC 4.41 Hgb 13.7 Hct 40.4 MCV 91.6 MCH 31.0 MCHC 33.8 RDW 12.9 Plt Count 219 MPV 8.6 Sickle Cell Screen Negative Sodium Potassium Chloride Carbon Dioxide Anion Gap BUN Creatinine Creat Clearance w eGFR Random Glucose Calcium Total Bilirubin AST ALT Alkaline Phosphatase Total Protein Albumin Urine Color Yellow Urine Appearance Cloudy Urine pH 7.0 Ur Specific [place] 1.020 Urine Protein Negative Urine Glucose (UA) Negative Urine Ketones Negative Urine Blood Negative Urine Nitrite Negative Urine Bilirubin Negative Urine Urobilinogen Negative Ur Leukocyte Esterase Negative RPR Titer Hepatitis C Antibody <0.1 08/06/17 08/06/17 06:00 06:00 WBC RBC Hgb Hct MCV MCH MCHC RDW Plt Count MPV Sickle Cell Screen Sodium 138 Potassium 4.7 D Chloride 101 Carbon Dioxide 32 Anion Gap 5 L BUN 16 Creatinine 1.3 Creat Clearance w eGFR 58.67 Random Glucose 88 D Calcium 8.8 Total Bilirubin 0.9 AST 24 D ALT 28 D Alkaline Phosphatase 85 Total Protein 7.4 Albumin 3.8 Urine Color Urine Appearance Urine pH Ur Specific [place] Urine Protein Urine Glucose (UA) Urine Ketones Urine Blood Urine Nitrite Urine Bilirubin Urine Urobilinogen Ur Leukocyte Esterase RPR Titer Nonreactive Hepatitis C Antibody Labs noted: prerenal azotemia Assessment: 08/08/17 17:53 Withdrawal symptoms Noted with prerenal azotemia Plan: Continue detox Ordered for ambien 10mg PO qhs prn and flexeril 10mg PO TID prn Prerenal azotemia: encouraged to drink lots of water, follow up with your PCP in 1-2 weeks post discharge
[2017-08-08] MEDS ORDERED: ZOLPIDEM TARTRATE 5 MG TABLET PO PRN (21:00)
[2017-08-08] MEDS: THIAMINE HCL 100 MG TABLET (FP) PO SCH (22:32)
[2017-08-08] MEDS: chlordiazePOXIDE HCL 10 MG CAPSULE PO SCH (22:33)
[2017-08-08] MEDS: diphenhydrAMINE HCL 50 MG CAPSULE PO PRN (22:33)
[2017-08-09] MEDS ORDERED: METHADONE HCL 10 MG TABLET ONE (03:21)
[2017-08-09] MEDS ORDERED: METHADONE HCL 40 MG DISPERSABLE TABLET ONE (03:22)
[2017-08-09] MEDS: METHADONE 80 MG, METHADONE 20 MG PO SCH (06:05)
[2017-08-09] MEDS: chlordiazePOXIDE HCL 10 MG CAPSULE PO SCH (06:06)
[2017-08-09 06:16] VITALS: BP 145/81; PULSE 67; TEMP 97.8
--- NOTE | 2017-08-09 12:50 | DS ---
[facility] Detox Discharge Summary Admission Date: 08/05/17 Discharge Date: 08/09/17 - History Present History: Alcohol Dependence, Cocaine Dependence, MMTP Additional Comments: PATIENT RETURNING TO [facility] ([place] FOR AFTERCARE. PATIENT ALSO ADVISED TO CONSIDER LOCAL 12-STEP /NA /AA OUTPATIENT SUPPORT GROUPS FOR AFTERCARE. PATIENT WAS DISCHARGED FROM DETOX UNIT IN STABLE MEDICAL CONDITION. Pertinent Past History: Nicotine Dependence, MMTP. - Physical Exam Results Vital Signs: Vital Signs Temperature 97.8 F 08/09/17 06:16 Pulse Rate 67 08/09/17 06:16 Respiratory Rate 18 08/09/17 06:16 Blood Pressure 145/81 08/09/17 06:16 O2 Sat by Pulse Oximetry (%) Pertinent Admission Physical Exam Findings: WITHDRAWAL SYMPTOMS. Laboratory Tests 08/05/17 08/06/17 08/06/17 23:00 06:00 06:00 WBC 4.3 RBC 4.41 Hgb 13.7 Hct 40.4 MCV 91.6 MCH 31.0 MCHC 33.8 RDW 12.9 Plt Count 219 MPV 8.6 Sickle Cell Screen Negative Sodium Potassium Chloride Carbon Dioxide Anion Gap BUN Creatinine Creat Clearance w eGFR Random Glucose Calcium Total Bilirubin AST ALT Alkaline Phosphatase Total Protein Albumin Urine Color Yellow Urine Appearance Cloudy Urine pH 7.0 Ur Specific [place] 1.020 Urine Protein Negative Urine Glucose (UA) Negative Urine Ketones Negative Urine Blood Negative Urine Nitrite Negative Urine Bilirubin Negative Urine Urobilinogen Negative Ur Leukocyte Esterase Negative RPR Titer Hepatitis C Antibody <0.1 08/06/17 08/06/17 06:00 06:00 WBC RBC Hgb Hct MCV MCH MCHC RDW Plt Count MPV Sickle Cell Screen Sodium 138 Potassium 4.7 D Chloride 101 Carbon Dioxide 32 Anion Gap 5 L BUN 16 Creatinine 1.3 Creat Clearance w eGFR 58.67 Random Glucose 88 D Calcium 8.8 Total Bilirubin 0.9 AST 24 D ALT 28 D Alkaline Phosphatase 85 Total Protein 7.4 Albumin 3.8 Urine Color Urine Appearance Urine pH Ur Specific [place] Urine Protein Urine Glucose (UA) Urine Ketones Urine Blood Urine Nitrite Urine Bilirubin Urine Urobilinogen Ur Leukocyte Esterase RPR Titer Nonreactive Hepatitis C Antibody LABS NOTED. - Treatment Hospital Course: Detox Protocol Followed, Detoxed Safely, Responded well, Discharged Condition Good Patient has Accepted a Rehab Referral to: NO. PT. RETURNING TO [facility] ([place] FOR AFTERCARE. - Diagnosis (1) Alcohol dependence with uncomplicated withdrawal Status: Acute (2) Cocaine dependence Status: Chronic Qualifiers: Substance use status: uncomplicated Qualified Code(s): F14.20 - Cocaine dependence, uncomplicated; F14.20 - Cocaine dependence, uncomplicated; F14.20 - Cocaine dependence, uncomplicated (3) Methadone maintenance therapy patient Status: Chronic (4) Nicotine dependence Status: Chronic Qualifiers: Nicotine product type: cigarettes Substance use status: in withdrawal Qualified Code(s): F17.213 - Nicotine dependence, cigarettes, with withdrawal; F17.213 - Nicotine dependence, cigarettes, with withdrawal - AMA Did Patient Leave Against Medical Advice: No
== END 2017-08-09 10:56 | disposition home or self-care (01) | DRG 773 ==
LOC: YASAS 12:16 → Y3N 17:14
PROVIDERS: ADMIT Internal Medicine; ATTEND Internal Medicine
PROC: HZ2ZZZZ Detoxification Services for Substance Abuse Treatment (ICD-10-PCS; principal; 2017-08-05)
DX: F10.230 Alcohol dependence with withdrawal, uncomplicated (principal); F11.20 Opioid dependence, uncomplicated; F14.20 Cocaine dependence, uncomplicated; F17.213 Nicotine dependence, cigarettes, with withdrawal; R79.89 Other specified abnormal findings of blood chemistry
CPT/HCPCS: 36415; 80053; 81003; 85027; 85660; 86593; 86803; 93005; 93010

== ENCOUNTER 2018-02-12 09:26 | Inpatient (IN) | payer OTHER ==
[2018-02-12 09:59] VITALS: BMI 35.6
--- NOTE | 2018-02-12 10:50 | HP ---
COWS - Scale Resting Pulse: 0= [place] 80 or Below Sweatin= No chills or Flushing Restless Observation: 1= Difficult to Sit Still Pupil Size: 0= Normal to Room Light Bone or Joint Aches: 2= Severe Diffuse Aches Runny Nose/ Eye Tearin= Nasal Congestion GI Upset > 30mins: 1= Stomach Cramp Tremor Observation: 2= Slight Tremor Visible Yawning Observation: 2= >3x During Session Anxiety or Irritability: 1=Feels Anxious/Irritable Goose Flesh Skin: 0=Smooth Skin COWS Score: 10 CIWA Score - CIWA Score Nausea/Vomitin-Mild Nausea/No Vomiting Muscle Tremors: 4-Moderate,w/Arms Extend Anxiety: 4-Mod. Anxious/Guarded Agitation: 1-Slight > Activity Paroxysmal Sweats: No Perspiration Orientation: 0-Oriented Tacttile Disturbances: 1-Very Mild Itch/Numbness Auditory Disturbances: 1-Very Mild Visual Disturbances: 1-Very Mild Sensitivity Headache: 1-Very Mild CIWA-Ar Total Score: 14 Admission ROS S - HPI Chief Complaint: I can't do it on my own, I get too sick, real sick without help Allergies/Adverse Reactions: Allergies Allergy/AdvReac Type Severity Reaction Status Date / Time No Known Allergies Allergy Verified 02/12/18 10:02 History of Present Illness: 47 yo gentleman here for detox from alcohol and heroin, also using cocaine. Although bzo+ urine tox he states he is not using benzos - must be mixed with heroin. No seizures, no black outs, this is one of multiple admissions for polysubstance treatment - last time here July 2017. Exam Limitations: Clinical Condition - Ebola screening Have you traveled outside of the country in the last 21 days: No (N) Have you had contact with anyone from an Ebola affected area: No Have you been sick,other than usual withdrawal symptoms: No Do you have a fever: No - Review of Systems Constitutional: Loss of Appetite, Malaise, Changes in sleep, Weakness EENT: reports: Blurred Vision, Nose Congestion Respiratory: reports: No Symptoms reported Cardiac: reports: No Symptoms Reported GI: reports: Nausea, Poor Appetite, Poor Fluid Intake : reports: Dysuria Musculoskeletal: reports: Back Pain, Joint Pain, Muscle Pain Integumentary: reports: No Symptoms Reported Neuro: reports: Headache, Tremors Endocrine: reports: No Symptoms Reported Hematology: reports: No Symptoms Reported Psychiatric: reports: Judgement Intact, Mood/Affect Appropiate, Orientated x3, Anxious Other Systems: Reviewed and Negative Patient History - Patient Medical History Hx Anemia: No Hx Asthma: No Hx Chronic Obstructive Pulmonary Disease (COPD): No Hx Cancer: No Hx Cardiac Disorders: No Hx Congestive Heart Failure: No Hx Hypertension: No Hx Hypercholesterolemia: No Hx Pacemaker: No HX Cerebrovascular Accident: No Hx Seizures: No Hx Dementia: No Hx Diabetes: No Hx Gastrointestinal Disorders: No Hx Liver Disease: No Hx Genitourinary Disorders: No Hx Sexually Transmitted Disorders: No Hx Renal Disease (ESRD): No Hx Thyroid Disease: No Hx Human Immunodeficiency Virus (HIV): No (NEGATIVE HX LAST 10/02) Hx Hepatitis C: No (NEGATIVE) Hx Depression: No Hx Suicide Attempt: No Hx Bipolar Disorder: No Hx Schizophrenia: No - Patient Surgical History Past Surgical History: No Hx Neurologic Surgery: No Hx Cataract Extraction: No Hx Cardiac Surgery: No Hx Lung Surgery: No Hx Breast Surgery: No Hx Breast Biopsy: No Hx Abdominal Surgery: No Hx Appendectomy: No Hx Cholecystectomy: No Hx Genitourinary Surgery: No Hx Section: No Hx Orthopedic Surgery: No Anesthesia Reaction: No - PPD History Previous Implant?: Yes Documented Results: Negative w/proof Implanted On Prior [facility] Admission?: Yes Date: 03/24/17 Results: 0 mm PPD to be Administered?: No - Reproductive History Patient is a Female of Child Bearing Age (11 -55 yrs old): No (male) - Smoking Cessation Smoking history: Current every day smoker Have you smoked in the past 12 months: No Aproximately how many cigarettes per day: 10 Cigars Per Day: 0 Hx Chewing Tobacco Use: No Initiated information on smoking cessation: Yes 'Breaking Loose' booklet given: 02/12/18 (give on floor) - Substance & Tx. History Hx Alcohol Use: Yes Hx Substance Use: Yes Substance Use Type: Alcohol, Cocaine, Heroin Hx Substance Use Treatment: Yes (detox, rehab, methadone program years ago) - Substances Abused Heroin Route: Inhalation Frequency: Daily Amount used: 10-12 bags daily ($100) Age of first use: 22 Date of Last Use: 02/11/18 Cocaine Route: Inhalation Frequency: Daily Amount used: 2-3 bags Age of first use: 22 Date of Last Use: 02/11/18 Alcohol Route: Oral Frequency: Daily Amount used: 1 pinsisi Age of first use: 26 Date of Last Use: 02/11/18 Family Disease History - Family Disease History Family Disease History: [place]: Father (, ), Mother (, ), Other: Father, Mother, Brother (one, living, healthy), Sister (five, living, healthy) Admission Physical Exam [facility] - Vital Signs Vital Signs: Vital Signs - 24 hr 02/12/18 09:58 Temperature 96.9 F L Pulse Rate 71 Respiratory 20 Rate Blood Pressure 157/89 - Physical General Appearance: Yes: Nourished, Appropriately Dressed, Moderate Distress, Anxious HEENTM: Yes: Hearing grossly Normal, Normocephalic, Normal Voice, Pharynx Normal Respiratory: Yes: Normal Breath Sounds, No Respiratory Distress Neck: Yes: No masses,lesions,Nodules, Supple Breast: Yes: Breast Exam Deferred Cardiology: Yes: Regular Rhythm, Regular Rate Abdominal: Yes: Soft Genitourinary: Yes: Dysuria Back: Yes: Normal Inspection Musculoskeletal: Yes: full range of Motion, Gait Steady, Back pain, Muscle Pain Extremities: Yes: Normal Inspection, Tremors Neurological: Yes: Fully Oriented, Alert, Motor Strength 5/5, Normal Mood/Affect , Normal Response Integumentary: Yes: Normal Color, Dry, Warm Lymphatic: Yes: Within Normal Limits - Diagnostic (1) Opioid dependence with withdrawal Current Visit: Yes Status: Chronic (2) Alcohol dependence with uncomplicated withdrawal Current Visit: Yes Status: Chronic (3) Cocaine dependence Current Visit: Yes Status: Chronic Qualifiers: Substance use status: uncomplicated Qualified Code(s): F14.20 - Cocaine dependence, uncomplicated (4) Nicotine dependence Current Visit: Yes Status: Chronic Qualifiers: Nicotine product type: cigarettes Substance use status: in withdrawal Qualified Code(s): F17.213 - Nicotine dependence, cigarettes, with withdrawal Cleared for Admission [facility] - Detox or Rehab [facility] Level of Care: Medically Managed Detox Regimen/Protocol: Methadone/Librium [facility] Breath Alcohol Content Breath Alcohol Content: 0 Urine Drug Screen - Results Drug Screen Negative: No Urine Drug Screen Results: ZION-Cocaine, OPI-Opiates, MDMA-Ecstasy, BZO- Benzodiazepines, MTD-Methadone
[2018-02-12] MEDS ORDERED: MAGNESIUM HYDROX 2400MG/30ML ORAL SUSPENSION 30 ML CUP PO PRN (10:56)
[2018-02-12] MEDS ORDERED: MAG HYDROX/AL HYDROX/SIMETH 30 ML UNIT-DOSE CUP PO PRN (10:56)
[2018-02-12] MEDS ORDERED: LOPERAMIDE HCL 2 MG CAPSULE PO PRN (10:56)
[2018-02-12] MEDS ORDERED: guaiFENesin/D-METHORPHAN HB 10 ML UNIT-DOSE CUPS PO PRN (10:56)
[2018-02-12] MEDS ORDERED: chlordiazePOXIDE HCL 25 MG CAPSULE PO PRN (10:56)
[2018-02-12] MEDS ORDERED: ACETAMINOPHEN 325 MG TABLET (FP) PO PRN (10:56)
[2018-02-12] MEDS ORDERED: NICOTINE POLACRILEX 4 MG GUM BUC PRN (10:56)
[2018-02-12] MEDS ORDERED: MENTHOL/PHENOL 1 EACH UD MM PRN (10:56)
[2018-02-12] MEDS ORDERED: MAGNESIUM CITRATE 300 ML BOTTLE PO PRN (10:56)
[2018-02-12] MEDS ORDERED: IBUPROFEN 400 MG TABLET (FP) PO PRN (10:56)
[2018-02-12] MEDS ORDERED: P-EPHED 60MG/TRIPROLIDI 2.5MG TABLET PO PRN (10:56)
[2018-02-12] MEDS ORDERED: chlordiazePOXIDE HCL 25 MG CAPSULE PO ONE (13:00)
[2018-02-12] MEDS ORDERED: METHADONE HCL 10 MG TABLET (FOR DETOX USE ONLY) PO ONE ×2 (13:00→23:00)
[2018-02-12] MEDS: chlordiazePOXIDE HCL 25 MG CAPSULE PO SCH ×2 (17:38→22:10)
[2018-02-12 18:13] LABS: URINE APPEARANCE CLEAR; URINE BILIRUBIN NEGATIVE (<2.0 mg/dL); URINE BLOOD NEGATIVE (NEGATIVE); URINE COLOR YELLOW; URINE GLUCOSE (UA) NEGATIVE (NEGATIVE); URINE KETONE NEGATIVE (NEGATIVE); URINE LEUK ESTERASE NEGATIVE (NEGATIVE); URINE NITRITE NEGATIVE (NEGATIVE); URINE PROTEIN NEGATIVE (NEGATIVE)
[2018-02-12] MEDS ORDERED: MELATONIN 5 MG TABLETS PO PRN (22:00)
[2018-02-12] MEDS: THIAMINE HCL 100 MG TABLET (FP) PO SCH (22:10)
[2018-02-13] MEDS: chlordiazePOXIDE HCL 25 MG CAPSULE PO SCH (05:49)
[2018-02-13] MEDS ORDERED: METHADONE HCL 10 MG TABLET (FOR DETOX USE ONLY) PO SCH (10:00)
[2018-02-13] MEDS ORDERED: diazePAM 5 MG TABLET PO ONE (10:03)
[2018-02-13] MEDS ORDERED: COLLOIDAL OATMEAL 1 BAR EACH TP PRN (10:04)
[2018-02-13] MEDS: PRENATAL VITAMINS W/ FOLIC ACID TABLET (FP) PO SCH (10:13)
--- NOTE | 2018-02-13 10:48 | EKG ---
Test Reason : Blood Pressure : / mmHG Vent. Rate : 071 BPM Atrial Rate : 071 BPM P-R Int : 172 ms QRS Dur : 102 ms QT Int : 392 ms P-R-T Axes : 071 055 038 degrees QTc Int : 425 ms NORMAL SINUS RHYTHM NORMAL ECG WHEN COMPARED WITH ECG OF 05-AUG-2017 17:53, NO SIGNIFICANT CHANGE WAS FOUND Confirmed by MAYDA YUSUF MD ([id number]) on 02/13/2018 10:47:54 AM Referred By: Confirmed By:MAYDA YUSUF MD
[2018-02-13 11:18] LABS: HEMATOCRIT 36.4 % (35.4-49); HEMOGLOBIN 12.7 GM/dL (11.7-16.9); MCH 32.1 pg (25.7-33.7); MEAN CELL VOLUME 91.7 fl (80-96); MEAN PLT VOLUME 7.9 fl (7.5-11.1); PLATELET COUNT 226 K/MM3 (134-434); RBC 3.97 M/mm3 (4.00-5.60); RDW 13.2 % (11.9-15.9); WHITE BLOOD COUNT 4.6 K/mm3 (4.0-10.0)
[2018-02-13 11:29] LABS: ALBUMIN 3.3 g/dl (3.4-5.0); ANION GAP 5 (8-16); BILIRUBIN,TOTAL 0.7 mg/dL (0.2-1.0); BLOOD UREA NITROGEN 13 mg/dL (7-18); CALCIUM 8.5 mg/dL (8.5-10.1); CHLORIDE 105 mmol/L (98-107); CO2 32 mmol/L (21-32); CREATININE 1.2 mg/dL (0.7-1.3); GLUCOSE,RANDOM 100 mg/dL (74-106); SGOT/AST 21 U/L (15-37); SGPT/ALT 27 U/L (12-78); SODIUM 142 mmol/L (136-145); TOT PROT 6.9 g/dl (6.4-8.2)
[2018-02-13 11:30] LABS: ALK PHOS 84 U/L (45-117)
[2018-02-13] MEDS: AMMONIUM LACTATE 12% LOTION 225 GM BOTTLE TP SCH ×2 (11:30→22:35)
[2018-02-13] MEDS: diazePAM 5 MG TABLET PO SCH ×2 (13:50→22:34)
--- NOTE | 2018-02-13 14:31 | PN ---
[facility] CIWA - CIWA Score Nausea/Vomitin-No Nausea/No Vomiting Muscle Tremors: 3 Anxiety: 4-Mod. Anxious/Guarded Agitation: 4-Moderately Restless Paroxysmal Sweats: No Perspiration Orientation: 0-Oriented Tacttile Disturbances: 2-Mild Itch/Numbness/Burn Auditory Disturbances: 2-Mild Harshness/Frighten Visual Disturbances: 2-Mild Sensitivity Headache: 0-None Present CIWA-Ar Total Score: 17 BHS COWS - Scale Resting Pulse: 0= [place] 80 or Below Sweatin= No chills or Flushing Restless Observation: 1= Difficult to Sit Still Pupil Size: 0= Normal to Room Light Bone or Joint Aches: 2= Severe Diffuse Aches Runny Nose/ Eye Tearin= Runny Nose/Eyes GI Upset > 30mins: 0= None Tremor Observation of Outstretched Hands: 2= Slight Tremor Visible Yawning Observation: 1= 1-2x During Session Anxiety or Irritability: 2=Irritable/Anxious Goose Flesh Skin: 3=Piloerection COWS Score: 13 S Progress Note (SOAP) Subjective: Interrupted Sleep, Tremors, Anxious, Diarrhea. Objective: PATIENT A & O X 3, OBSERVED AMBULATING ON UNIT. NO ACUTE DISTRESS. 02/13/18 14:29 Vital Signs Temperature 98.6 F 02/13/18 14:19 Pulse Rate 77 02/13/18 14:19 Respiratory Rate 20 02/13/18 14:19 Blood Pressure 125/78 02/13/18 14:19 O2 Sat by Pulse Oximetry (%) Laboratory Tests 02/12/18 02/13/18 02/13/18 16:00 08:00 08:00 WBC 4.6 RBC 3.97 L Hgb 12.7 Hct 36.4 MCV 91.7 MCH 32.1 MCHC 35.0 RDW 13.2 Plt Count 226 MPV 7.9 Sodium Potassium Chloride Carbon Dioxide Anion Gap BUN Creatinine Creat Clearance w eGFR Random Glucose Calcium Total Bilirubin AST ALT Alkaline Phosphatase Total Protein Albumin Urine Color Yellow Urine Appearance Clear Urine pH 7.0 Ur Specific [place] 1.027 Urine Protein Negative Urine Glucose (UA) Negative Urine Ketones Negative Urine Blood Negative Urine Nitrite Negative Urine Bilirubin Negative Urine Urobilinogen 2.0 Ur Leukocyte Esterase Negative RPR Titer HIV 1&2 Antibody Screen Negative HIV P24 Antigen Negative 02/13/18 02/13/18 08:00 08:00 WBC RBC Hgb Hct MCV MCH MCHC RDW Plt Count MPV Sodium 142 Potassium 4.0 Chloride 105 Carbon Dioxide 32 Anion Gap 5 L BUN 13 Creatinine 1.2 Creat Clearance w eGFR > 60 Random Glucose 100 Calcium 8.5 Total Bilirubin 0.7 D AST 21 ALT 27 Alkaline Phosphatase 84 Total Protein 6.9 Albumin 3.3 L Urine Color Urine Appearance Urine pH Ur Specific [place] Urine Protein Urine Glucose (UA) Urine Ketones Urine Blood Urine Nitrite Urine Bilirubin Urine Urobilinogen Ur Leukocyte Esterase RPR Titer Nonreactive HIV 1&2 Antibody Screen HIV P24 Antigen LABS NOTED. Assessment: 02/13/18 14:30 WITHDRAWAL SYMPTOMS. Plan: CONTINUE DETOX. INCREASE DAILY PO FLUID INTAKE.
[2018-02-13] MEDS ORDERED: chlordiazePOXIDE HCL 25 MG CAPSULE PO SCH (17:00)
[2018-02-13] MEDS: THIAMINE HCL 100 MG TABLET (FP) PO SCH (22:34)
[2018-02-13] MEDS: hydrOXYzine PAMOATE 25 MG CAPSULE (FP) PO PRN (22:40)
[2018-02-14] MEDS: diazePAM 5 MG TABLET PO SCH ×3 (05:01→22:09)
[2018-02-14] MEDS: diazePAM 5 MG TABLET PO PRN (09:20)
[2018-02-14] MEDS: METHADONE HCL 5 MG TABLET (FOR DETOX USE ONLY) PO SCH (10:12)
[2018-02-14] MEDS: PRENATAL VITAMINS W/ FOLIC ACID TABLET (FP) PO SCH (10:12)
[2018-02-14] MEDS: AMMONIUM LACTATE 12% LOTION 225 GM BOTTLE TP SCH ×2 (10:14→22:12)
--- NOTE | 2018-02-14 10:55 | PN ---
[facility] CIWA - CIWA Score Nausea/Vomitin-No Nausea/No Vomiting Muscle Tremors: 4-Moderate,w/Arms Extend Anxiety: 4-Mod. Anxious/Guarded Agitation: 3 Paroxysmal Sweats: 1-Minimal Palms Moist Orientation: 0-Oriented Tacttile Disturbances: 3-Moderate Itch/Numb/Burn Auditory Disturbances: 0-None Visual Disturbances: 0-None Headache: 0-None Present CIWA-Ar Total Score: 15 S COWS - Scale Resting Pulse: 0= [place] 80 or Below Sweatin= Chills/Flushing Restless Observation: 3= Extraneous Movement Pupil Size: 2= Moderately Dilated Bone or Joint Aches: 4=Acute Joint/Muscle Pain Runny Nose/ Eye Tearin= Nasal Congestion GI Upset > 30mins: 0= None Tremor Observation of Outstretched Hands: 2= Slight Tremor Visible Yawning Observation: 0= None Anxiety or Irritability: 2=Irritable/Anxious Goose Flesh Skin: 0=Smooth Skin COWS Score: 15 S Progress Note (SOAP) Subjective: ANXIETY,SWEATS,TREMORS,INTERMITTENT SLEEP. Objective: 02/14/18 10:54 Vital Signs Temperature 97.6 F 02/14/18 09:09 Pulse Rate 68 02/14/18 09:09 Respiratory Rate 18 02/14/18 09:09 Blood Pressure 124/73 02/14/18 09:09 O2 Sat by Pulse Oximetry (%) Laboratory Last Values WBC 4.6 K/mm3 (4.0-10.0) 02/13/18 08:00 RBC 3.97 M/mm3 (4.00-5.60) L 02/13/18 08:00 Hgb 12.7 GM/dL (11.7-16.9) 02/13/18 08:00 Hct 36.4 % (35.4-49) 02/13/18 08:00 MCV 91.7 fl (80-96) 02/13/18 08:00 MCH 32.1 pg (25.7-33.7) 02/13/18 08:00 MCHC 35.0 g/dl (32.0-35.9) 02/13/18 08:00 RDW 13.2 % (11.9-15.9) 02/13/18 08:00 Plt Count 226 K/MM3 (134-434) 02/13/18 08:00 MPV 7.9 fl (7.5-11.1) 02/13/18 08:00 Sodium 142 mmol/L (136-145) 02/13/18 08:00 Potassium 4.0 mmol/L (3.5-5.1) 02/13/18 08:00 Chloride 105 mmol/L (98-107) 02/13/18 08:00 Carbon Dioxide 32 mmol/L (21-32) 02/13/18 08:00 Anion Gap 5 (8-16) L 02/13/18 08:00 BUN 13 mg/dL (7-18) 02/13/18 08:00 Creatinine 1.2 mg/dL (0.7-1.3) 02/13/18 08:00 Creat Clearance w eGFR > 60 (>60) 02/13/18 08:00 Random Glucose 100 mg/dL (74-106) 02/13/18 08:00 Calcium 8.5 mg/dL (8.5-10.1) 02/13/18 08:00 Total Bilirubin 0.7 mg/dL (0.2-1.0) D 02/13/18 08:00 AST 21 U/L (15-37) 02/13/18 08:00 ALT 27 U/L (12-78) 02/13/18 08:00 Alkaline Phosphatase 84 U/L (45-117) 02/13/18 08:00 Total Protein 6.9 g/dl (6.4-8.2) 02/13/18 08:00 Albumin 3.3 g/dl (3.4-5.0) L 02/13/18 08:00 Urine Color Yellow 02/12/18 16:00 Urine Appearance Clear 02/12/18 16:00 Urine pH 7.0 (5.0-8.0) 02/12/18 16:00 Ur Specific [place] 1.027 (1.001-1.035) 02/12/18 16:00 Urine Protein Negative (NEGATIVE) 02/12/18 16:00 Urine Glucose (UA) Negative (NEGATIVE) 02/12/18 16:00 Urine Ketones Negative (NEGATIVE) 02/12/18 16:00 Urine Blood Negative (NEGATIVE) 02/12/18 16:00 Urine Nitrite Negative (NEGATIVE) 02/12/18 16:00 Urine Bilirubin Negative (<2.0 mg/dL) 02/12/18 16:00 Urine Urobilinogen 2.0 mg/dL (0.2-1.0) 02/12/18 16:00 Ur Leukocyte Esterase Negative (NEGATIVE) 02/12/18 16:00 RPR Titer Nonreactive (NONREACTIVE) 02/13/18 08:00 HIV 1&2 Antibody Screen Negative 02/13/18 08:00 HIV P24 Antigen Negative 02/13/18 08:00 Assessment: 02/14/18 10:55 WITHDRAWAL SX Plan: CONTINUE DETOX
[2018-02-14] MEDS ORDERED: chlordiazePOXIDE 5 MG CAPSULE PO SCH (17:00)
[2018-02-14] MEDS: THIAMINE HCL 100 MG TABLET (FP) PO SCH (22:09)
[2018-02-14] MEDS: hydrOXYzine PAMOATE 25 MG CAPSULE (FP) PO PRN (22:10)
[2018-02-15] MEDS: diazePAM 5 MG TABLET PO PRN ×2 (08:40→19:41)
[2018-02-15] MEDS ORDERED: diazePAM 5 MG TABLET PO SCH (10:00)
[2018-02-15] MEDS: METHADONE HCL 5 MG TABLET (FOR DETOX USE ONLY) PO SCH (10:07)
[2018-02-15] MEDS: PRENATAL VITAMINS W/ FOLIC ACID TABLET (FP) PO SCH (10:07)
[2018-02-15] MEDS: AMMONIUM LACTATE 12% LOTION 225 GM BOTTLE TP SCH ×2 (10:09→22:13)
--- NOTE | 2018-02-15 10:18 | PN ---
S Progress Note (SOAP) Subjective: ANXIETY,SWEATS, DIARRHEA. Objective: 02/15/18 10:17 Vital Signs Temperature 96.7 F L 02/15/18 09:13 Pulse Rate 77 02/15/18 09:13 Respiratory Rate 18 02/15/18 09:13 Blood Pressure 121/78 02/15/18 09:13 O2 Sat by Pulse Oximetry (%) Laboratory Last Values WBC 4.6 K/mm3 (4.0-10.0) 02/13/18 08:00 RBC 3.97 M/mm3 (4.00-5.60) L 02/13/18 08:00 Hgb 12.7 GM/dL (11.7-16.9) 02/13/18 08:00 Hct 36.4 % (35.4-49) 02/13/18 08:00 MCV 91.7 fl (80-96) 02/13/18 08:00 MCH 32.1 pg (25.7-33.7) 02/13/18 08:00 MCHC 35.0 g/dl (32.0-35.9) 02/13/18 08:00 RDW 13.2 % (11.9-15.9) 02/13/18 08:00 Plt Count 226 K/MM3 (134-434) 02/13/18 08:00 MPV 7.9 fl (7.5-11.1) 02/13/18 08:00 Sodium 142 mmol/L (136-145) 02/13/18 08:00 Potassium 4.0 mmol/L (3.5-5.1) 02/13/18 08:00 Chloride 105 mmol/L (98-107) 02/13/18 08:00 Carbon Dioxide 32 mmol/L (21-32) 02/13/18 08:00 Anion Gap 5 (8-16) L 02/13/18 08:00 BUN 13 mg/dL (7-18) 02/13/18 08:00 Creatinine 1.2 mg/dL (0.7-1.3) 02/13/18 08:00 Creat Clearance w eGFR > 60 (>60) 02/13/18 08:00 Random Glucose 100 mg/dL (74-106) 02/13/18 08:00 Calcium 8.5 mg/dL (8.5-10.1) 02/13/18 08:00 Total Bilirubin 0.7 mg/dL (0.2-1.0) D 02/13/18 08:00 AST 21 U/L (15-37) 02/13/18 08:00 ALT 27 U/L (12-78) 02/13/18 08:00 Alkaline Phosphatase 84 U/L (45-117) 02/13/18 08:00 Total Protein 6.9 g/dl (6.4-8.2) 02/13/18 08:00 Albumin 3.3 g/dl (3.4-5.0) L 02/13/18 08:00 Urine Color Yellow 02/12/18 16:00 Urine Appearance Clear 02/12/18 16:00 Urine pH 7.0 (5.0-8.0) 02/12/18 16:00 Ur Specific [place] 1.027 (1.001-1.035) 02/12/18 16:00 Urine Protein Negative (NEGATIVE) 02/12/18 16:00 Urine Glucose (UA) Negative (NEGATIVE) 02/12/18 16:00 Urine Ketones Negative (NEGATIVE) 02/12/18 16:00 Urine Blood Negative (NEGATIVE) 02/12/18 16:00 Urine Nitrite Negative (NEGATIVE) 02/12/18 16:00 Urine Bilirubin Negative (<2.0 mg/dL) 02/12/18 16:00 Urine Urobilinogen 2.0 mg/dL (0.2-1.0) 02/12/18 16:00 Ur Leukocyte Esterase Negative (NEGATIVE) 02/12/18 16:00 RPR Titer Nonreactive (NONREACTIVE) 02/13/18 08:00 HIV 1&2 Antibody Screen Negative 02/13/18 08:00 HIV P24 Antigen Negative 02/13/18 08:00 Assessment: 02/15/18 10:17 WITHDRAWAL SX Plan: CONTINUE DETOX IMODIUM PRN
[2018-02-15] MEDS ORDERED: chlordiazePOXIDE HCL 10 MG CAPSULE PO SCH (17:00)
[2018-02-15] MEDS ORDERED: diazePAM 5 MG TABLET PO ONE (22:00)
[2018-02-15] MEDS: THIAMINE HCL 100 MG TABLET (FP) PO SCH (22:06)
[2018-02-15] MEDS: hydrOXYzine PAMOATE 25 MG CAPSULE (FP) PO PRN (22:07)
[2018-02-16] MEDS ORDERED: METHADONE HCL 5 MG TABLET (FOR DETOX USE ONLY) PO SCH (06:00)
[2018-02-16 06:06] VITALS: BP 125/73; PULSE 85; TEMP 96.2
[2018-02-16] MEDS ORDERED: METHADONE HCL 10 MG TABLET (FOR DETOX USE ONLY) PO SCH (10:00)
[2018-02-16] MEDS ORDERED: diazePAM 5 MG TABLET PO SCH (10:00)
--- NOTE | 2018-02-16 12:33 | DS ---
[facility] Detox Discharge Summary Admission Date: 02/12/18 Discharge Date: 02/16/18 - History Present History: Alcohol Dependence, Cocaine Dependence, Opioid Dependence Additional Comments: DETOX COMPLETED. Pertinent Past History: PLEAS SEE DX BELOW - Physical Exam Results Vital Signs: Vital Signs Temperature 96.2 F L 02/16/18 06:05 Pulse Rate 85 02/16/18 06:05 Respiratory Rate 18 02/16/18 06:05 Blood Pressure 125/73 02/16/18 06:05 O2 Sat by Pulse Oximetry (%) Pertinent Admission Physical Exam Findings: WITHDRAWAL SX Laboratory Tests 02/12/18 02/13/18 02/13/18 16:00 08:00 08:00 WBC 4.6 RBC 3.97 L Hgb 12.7 Hct 36.4 MCV 91.7 MCH 32.1 MCHC 35.0 RDW 13.2 Plt Count 226 MPV 7.9 Sodium Potassium Chloride Carbon Dioxide Anion Gap BUN Creatinine Creat Clearance w eGFR Random Glucose Calcium Total Bilirubin AST ALT Alkaline Phosphatase Total Protein Albumin Urine Color Yellow Urine Appearance Clear Urine pH 7.0 Ur Specific [place] 1.027 Urine Protein Negative Urine Glucose (UA) Negative Urine Ketones Negative Urine Blood Negative Urine Nitrite Negative Urine Bilirubin Negative Urine Urobilinogen 2.0 Ur Leukocyte Esterase Negative RPR Titer HIV 1&2 Antibody Screen Negative HIV P24 Antigen Negative 02/13/18 02/13/18 08:00 08:00 WBC RBC Hgb Hct MCV MCH MCHC RDW Plt Count MPV Sodium 142 Potassium 4.0 Chloride 105 Carbon Dioxide 32 Anion Gap 5 L BUN 13 Creatinine 1.2 Creat Clearance w eGFR > 60 Random Glucose 100 Calcium 8.5 Total Bilirubin 0.7 D AST 21 ALT 27 Alkaline Phosphatase 84 Total Protein 6.9 Albumin 3.3 L Urine Color Urine Appearance Urine pH Ur Specific [place] Urine Protein Urine Glucose (UA) Urine Ketones Urine Blood Urine Nitrite Urine Bilirubin Urine Urobilinogen Ur Leukocyte Esterase RPR Titer Nonreactive HIV 1&2 Antibody Screen HIV P24 Antigen - Treatment Hospital Course: Detox Protocol Followed, Detoxed Safely, Responded well, Discharged Condition Good - Medication Discharge Medications: Ambulatory Orders NK [No Known Home Medication] 02/12/18 - Diagnosis (1) Alcohol dependence with uncomplicated withdrawal Status: Acute (2) Opioid dependence with withdrawal Status: Acute (3) Cocaine dependence Status: Acute Qualifiers: Substance use status: uncomplicated Qualified Code(s): F14.20 - Cocaine dependence, uncomplicated (4) Nicotine dependence Status: Acute Qualifiers: Nicotine product type: cigarettes Substance use status: in withdrawal Qualified Code(s): F17.213 - Nicotine dependence, cigarettes, with withdrawal - AMA Did Patient Leave Against Medical Advice: No
[2018-02-17] MEDS ORDERED: METHADONE HCL 5 MG TABLET (FOR DETOX USE ONLY) PO SCH (06:00)
[2018-02-17] MEDS ORDERED: diazePAM 5 MG TABLET PO SCH (10:00)
== END 2018-02-16 08:16 | disposition home or self-care (01) | DRG 773 ==
LOC: YASAS 09:26 → Y3N 11:51
PROVIDERS: ADMIT Internal Medicine; ATTEND Internal Medicine
PROC: HZ2ZZZZ Detoxification Services for Substance Abuse Treatment (ICD-10-PCS; principal; 2018-02-12)
DX: F11.23 Opioid dependence with withdrawal (principal); F10.230 Alcohol dependence with withdrawal, uncomplicated; F14.20 Cocaine dependence, uncomplicated; F17.213 Nicotine dependence, cigarettes, with withdrawal
CPT/HCPCS: 36415; 80053; 81003; 85027; 86593; 87389; 93005; 93010

== ENCOUNTER 2018-03-19 09:34 | Inpatient (IN) | payer OTHER ==
[2018-03-19 12:17] VITALS: BMI 35.1
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
[2018-03-19] MEDS ORDERED: guaiFENesin/D-METHORPHAN HB 10 ML UNIT-DOSE CUPS PO PRN (14:51)
[2018-03-19] MEDS ORDERED: NICOTINE POLACRILEX 2 MG GUM BC PRN (14:51)
[2018-03-19] MEDS ORDERED: chlordiazePOXIDE HCL 25 MG CAPSULE PO PRN (14:51)
[2018-03-19] MEDS ORDERED: LOPERAMIDE HCL 2 MG CAPSULE PO PRN (14:51)
[2018-03-19] MEDS ORDERED: MENTHOL/PHENOL 1 EACH UD MM PRN (14:51)
[2018-03-19] MEDS ORDERED: MAG HYDROX/AL HYDROX/SIMETH 30 ML UNIT-DOSE CUP PO PRN (14:51)
[2018-03-19] MEDS ORDERED: ACETAMINOPHEN 325 MG TABLET (FP) PO PRN (14:51)
[2018-03-19] MEDS ORDERED: P-EPHED 60MG/TRIPROLIDI 2.5MG TABLET PO PRN (14:51)
[2018-03-19] MEDS ORDERED: IBUPROFEN 400 MG TABLET (FP) PO PRN (14:51)
[2018-03-19] MEDS ORDERED: MAGNESIUM HYDROX 2400MG/30ML ORAL SUSPENSION 30 ML CUP PO PRN (14:51)
[2018-03-19] MEDS ORDERED: MAGNESIUM CITRATE 300 ML BOTTLE PO PRN (14:51)
[2018-03-19] MEDS ORDERED: CYCLOBENZAPRINE HCL 5 MG TABLET PO PRN (14:58)
[2018-03-19] MEDS ORDERED: chlordiazePOXIDE HCL 25 MG CAPSULE PO ONE (18:00)
[2018-03-19] MEDS: LIDOCAINE 5% TOPICAL PATCH TP SCH (20:01)
[2018-03-19] MEDS: THIAMINE HCL 100 MG TABLET (FP) PO SCH (22:17)
[2018-03-19] MEDS: chlordiazePOXIDE HCL 25 MG CAPSULE PO SCH (22:17)
[2018-03-19] MEDS: MELATONIN 5 MG TABLETS PO PRN (22:18)
[2018-03-19] MEDS: hydrOXYzine PAMOATE 50 MG CAPSULE (FP) PO PRN (22:20)
[2018-03-19] MEDS: LIDOCAINE PATCH REMOVAL MC SCH (22:21)
[2018-03-20] MEDS: chlordiazePOXIDE HCL 25 MG CAPSULE PO SCH ×4 (06:55→22:40)
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
[2018-03-20] MEDS: LIDOCAINE 5% TOPICAL PATCH TP SCH (10:12)
[2018-03-20] MEDS: NICOTINE 14 MG/24 HOURS TOPICAL PATCH TD SCH (10:12)
[2018-03-20] MEDS: PRENATAL VITAMINS W/ FOLIC ACID TABLET (FP) PO SCH (10:12)
--- NOTE | 2018-03-20 10:16 | PN ---
[facility] Progress Note Note: Patient approached at bedside. He is very irritable saying:" I don't want to talk, I don't feel good"
[2018-03-20 10:59] LABS: HEMATOCRIT 39.2 % (35.4-49); HEMOGLOBIN 13.3 GM/dL (11.7-16.9); MCH 31.4 pg (25.7-33.7); MEAN CELL VOLUME 92.3 fl (80-96); MEAN PLT VOLUME 7.5 fl (7.5-11.1); PLATELET COUNT 232 K/MM3 (134-434); RBC 4.24 M/mm3 (4.00-5.60); RDW 13.4 % (11.9-15.9)
[2018-03-20 11:07] LABS: CHLORIDE 103 mmol/L (98-107); POTASSIUM 4.6 mmol/L (3.5-5.1); SODIUM 140 mmol/L (136-145)
[2018-03-20 11:18] LABS: URINE APPEARANCE TURBID; URINE BILIRUBIN NEGATIVE (<2.0 mg/dL); URINE BLOOD NEGATIVE (NEGATIVE); URINE COLOR YELLOW; URINE GLUCOSE (UA) NEGATIVE (NEGATIVE); URINE KETONE NEGATIVE (NEGATIVE); URINE LEUK ESTERASE NEGATIVE (NEGATIVE); URINE NITRITE NEGATIVE (NEGATIVE); URINE UROBILINOGEN NEGATIVE mg/dL (0.2-1.0)
[2018-03-20 11:22] LABS: ALBUMIN 3.2 g/dl (3.4-5.0); ALK PHOS 94 U/L (45-117); ANION GAP 4 (8-16); BILIRUBIN,TOTAL 0.8 mg/dL (0.2-1.0); BLOOD UREA NITROGEN 15 mg/dL (7-18); CALCIUM 8.1 mg/dL (8.5-10.1); CO2 33 mmol/L (21-32); CREATININE 1.2 mg/dL (0.7-1.3); GLUCOSE,RANDOM 91 mg/dL (74-106); SGOT/AST 47 U/L (15-37); SGPT/ALT 48 U/L (12-78); TOT PROT 6.4 g/dl (6.4-8.2)
[2018-03-20 11:24] LABS: URINE PROTEIN 1+ (NEGATIVE)
--- NOTE | 2018-03-20 16:21 | PN ---
S CIWA - CIWA Score Nausea/Vomitin-No Nausea/No Vomiting Muscle Tremors: 3 Anxiety: 2 Agitation: 1-Slight > Activity Paroxysmal Sweats: 3 Orientation: 0-Oriented Tacttile Disturbances: 1-Very Mild Itch/Numbness Auditory Disturbances: 0-None Visual Disturbances: 0-None Headache: 0-None Present CIWA-Ar Total Score: 10 BHS Progress Note (SOAP) Subjective: Sweating, Tremors, Anxious. Objective: PATIENT A & O X 3. NO ACUTE DISTRESS. 03/20/18 16:22 Vital Signs Temperature 97.1 F L 03/20/18 13:30 Pulse Rate 66 03/20/18 13:30 Respiratory Rate 18 03/20/18 13:30 Blood Pressure 103/61 03/20/18 13:30 O2 Sat by Pulse Oximetry (%) Laboratory Tests 03/20/18 03/20/18 03/20/18 07:40 07:40 07:40 WBC 5.0 RBC 4.24 Hgb 13.3 Hct 39.2 MCV 92.3 MCH 31.4 MCHC 34.0 RDW 13.4 Plt Count 232 MPV 7.5 Sodium 140 Potassium 4.6 Chloride 103 Carbon Dioxide 33 H Anion Gap 4 L BUN 15 Creatinine 1.2 Creat Clearance w eGFR > 60 Random Glucose 91 Calcium 8.1 L Total Bilirubin 0.8 AST 47 H D ALT 48 D Alkaline Phosphatase 94 Total Protein 6.4 Albumin 3.2 L Urine Color Urine Appearance Urine pH Ur Specific [place] Urine Protein Urine Glucose (UA) Urine Ketones Urine Blood Urine Nitrite Urine Bilirubin Urine Urobilinogen Ur Leukocyte Esterase Urine WBC (Auto) Urine RBC (Auto) RPR Titer Nonreactive 03/20/18 08:15 WBC RBC Hgb Hct MCV MCH MCHC RDW Plt Count MPV Sodium Potassium Chloride Carbon Dioxide Anion Gap BUN Creatinine Creat Clearance w eGFR Random Glucose Calcium Total Bilirubin AST ALT Alkaline Phosphatase Total Protein Albumin Urine Color Yellow Urine Appearance Turbid Urine pH 5.0 D Ur Specific [place] 1.033 Urine Protein 1+ H Urine Glucose (UA) Negative Urine Ketones Negative Urine Blood Negative Urine Nitrite Negative Urine Bilirubin Negative Urine Urobilinogen Negative Ur Leukocyte Esterase Negative Urine WBC (Auto) None Urine RBC (Auto) None RPR Titer LABS NOTED. Assessment: 03/20/18 16:22 WITHDRAWAL SYMPTOMS. Plan: CONTINUE DETOX.
--- NOTE | 2018-03-20 22:42 | EKG ---
Test Reason : Blood Pressure : / mmHG Vent. Rate : 079 BPM Atrial Rate : 079 BPM P-R Int : 170 ms QRS Dur : 100 ms QT Int : 360 ms P-R-T Axes : 064 044 056 degrees QTc Int : 412 ms NORMAL SINUS RHYTHM ANTERIOR INFARCT , AGE UNDETERMINED ABNORMAL ECG WHEN COMPARED WITH ECG OF 12-FEB-2018 12:40, NO SIGNIFICANT CHANGE WAS FOUND Confirmed by SASHA BOSE MD ([id number]) on 03/20/2018 10:42:16 PM Referred By: Confirmed By:SASHA BOSE MD
[2018-03-20] MEDS: MELATONIN 5 MG TABLETS PO PRN (22:43)
[2018-03-20] MEDS: hydrOXYzine PAMOATE 50 MG CAPSULE (FP) PO PRN (22:44)
[2018-03-20] MEDS: THIAMINE HCL 100 MG TABLET (FP) PO SCH (22:45)
[2018-03-20] MEDS: LIDOCAINE PATCH REMOVAL MC SCH (22:45)
[2018-03-21] MEDS: chlordiazePOXIDE HCL 25 MG CAPSULE PO SCH (05:52)
[2018-03-21] MEDS ORDERED: diazePAM 5 MG TABLET PO PRN (09:31)
[2018-03-21] MEDS ORDERED: diazePAM 5 MG TABLET PO SCH (10:00)
[2018-03-21] MEDS: PRENATAL VITAMINS W/ FOLIC ACID TABLET (FP) PO SCH (10:23)
[2018-03-21] MEDS: LIDOCAINE 5% TOPICAL PATCH TP SCH (10:23)
[2018-03-21] MEDS: NICOTINE 14 MG/24 HOURS TOPICAL PATCH TD SCH (10:23)
[2018-03-21 13:15] VITALS: BP 144/96; PULSE 74; TEMP 96.9
--- NOTE | 2018-03-21 13:41 | PN ---
S CIWA - CIWA Score Nausea/Vomitin-No Nausea/No Vomiting Muscle Tremors: 4-Moderate,w/Arms Extend Anxiety: 4-Mod. Anxious/Guarded Agitation: 4-Moderately Restless Paroxysmal Sweats: 1-Minimal Palms Moist Orientation: 0-Oriented Tacttile Disturbances: 3-Moderate Itch/Numb/Burn Auditory Disturbances: 0-None Visual Disturbances: 0-None Headache: 0-None Present CIWA-Ar Total Score: 16 BHS Progress Note (SOAP) Subjective: ANXIETY,SWEATS,CHILLS,IRRITABILITY. Objective: 03/21/18 13:40 Vital Signs 03/21/18 03/21/18 03/21/18 06:43 09:05 13:14 Temperature 98 F 97.1 F L 96.9 F L Pulse Rate 63 68 74 Respiratory 18 18 18 Rate Blood Pressure 110/62 127/78 144/96 Laboratory Tests 03/20/18 03/20/18 03/20/18 07:40 07:40 07:40 WBC 5.0 RBC 4.24 Hgb 13.3 Hct 39.2 MCV 92.3 MCH 31.4 MCHC 34.0 RDW 13.4 Plt Count 232 MPV 7.5 Sodium 140 Potassium 4.6 Chloride 103 Carbon Dioxide 33 H Anion Gap 4 L BUN 15 Creatinine 1.2 Creat Clearance w eGFR > 60 Random Glucose 91 Calcium 8.1 L Total Bilirubin 0.8 AST 47 H D ALT 48 D Alkaline Phosphatase 94 Total Protein 6.4 Albumin 3.2 L Urine Color Urine Appearance Urine pH Ur Specific [place] Urine Protein Urine Glucose (UA) Urine Ketones Urine Blood Urine Nitrite Urine Bilirubin Urine Urobilinogen Ur Leukocyte Esterase Urine WBC (Auto) Urine RBC (Auto) RPR Titer Nonreactive 03/20/18 08:15 WBC RBC Hgb Hct MCV MCH MCHC RDW Plt Count MPV Sodium Potassium Chloride Carbon Dioxide Anion Gap BUN Creatinine Creat Clearance w eGFR Random Glucose Calcium Total Bilirubin AST ALT Alkaline Phosphatase Total Protein Albumin Urine Color Yellow Urine Appearance Turbid Urine pH 5.0 D Ur Specific [place] 1.033 Urine Protein 1+ H Urine Glucose (UA) Negative Urine Ketones Negative Urine Blood Negative Urine Nitrite Negative Urine Bilirubin Negative Urine Urobilinogen Negative Ur Leukocyte Esterase Negative Urine WBC (Auto) None Urine RBC (Auto) None RPR Titer Assessment: 03/21/18 13:40 WITHDRAWAL SX Plan: CONTINUE DETOX
[2018-03-21] MEDS ORDERED: CYCLOBENZAPRINE HCL 10 MG TABLET (FP) PO SCH (15:00)
[2018-03-21] MEDS ORDERED: cloNIDine HCL 0.1 MG TABLET PO ONE (15:00)
[2018-03-21] MEDS ORDERED: cloNIDine HCL 0.1 MG TABLET PO SCH (22:00)
[2018-03-21] MEDS ORDERED: chlordiazePOXIDE 5 MG CAPSULE PO SCH (23:00)
--- NOTE | 2018-03-22 11:44 | DS ---
[facility] Detox Discharge Summary Admission Date: 03/19/18 Discharge Date: 03/21/18 - History Additional Comments: PT DECLINED TO CONTINUE WITH DETOX. PT SIGNED OUT AMA. Pertinent Past History: PLEASE SEE DX BELOW - Physical Exam Results Vital Signs: Vital Signs Temperature 96.9 F L 03/21/18 13:14 Pulse Rate 74 03/21/18 13:14 Respiratory Rate 18 03/21/18 13:14 Blood Pressure 144/96 03/21/18 13:14 O2 Sat by Pulse Oximetry (%) Pertinent Admission Physical Exam Findings: WITHDRAWAL SX Laboratory Tests 03/20/18 03/20/18 03/20/18 07:40 07:40 07:40 WBC 5.0 RBC 4.24 Hgb 13.3 Hct 39.2 MCV 92.3 MCH 31.4 MCHC 34.0 RDW 13.4 Plt Count 232 MPV 7.5 Sodium 140 Potassium 4.6 Chloride 103 Carbon Dioxide 33 H Anion Gap 4 L BUN 15 Creatinine 1.2 Creat Clearance w eGFR > 60 Random Glucose 91 Calcium 8.1 L Total Bilirubin 0.8 AST 47 H D ALT 48 D Alkaline Phosphatase 94 Total Protein 6.4 Albumin 3.2 L Urine Color Urine Appearance Urine pH Ur Specific [place] Urine Protein Urine Glucose (UA) Urine Ketones Urine Blood Urine Nitrite Urine Bilirubin Urine Urobilinogen Ur Leukocyte Esterase Urine WBC (Auto) Urine RBC (Auto) RPR Titer Nonreactive 03/20/18 08:15 WBC RBC Hgb Hct MCV MCH MCHC RDW Plt Count MPV Sodium Potassium Chloride Carbon Dioxide Anion Gap BUN Creatinine Creat Clearance w eGFR Random Glucose Calcium Total Bilirubin AST ALT Alkaline Phosphatase Total Protein Albumin Urine Color Yellow Urine Appearance Turbid Urine pH 5.0 D Ur Specific [place] 1.033 Urine Protein 1+ H Urine Glucose (UA) Negative Urine Ketones Negative Urine Blood Negative Urine Nitrite Negative Urine Bilirubin Negative Urine Urobilinogen Negative Ur Leukocyte Esterase Negative Urine WBC (Auto) None Urine RBC (Auto) None RPR Titer - Treatment Hospital Course: Discharged Condition Good - Medication Discharge Medications: Ambulatory Orders Oxycodone HCl/Acetaminophen [Oxycodone-Acetaminophen 10-325] 1 tablet PO DAILY 03/19/18 - Diagnosis (1) Alcohol dependence with uncomplicated withdrawal Status: Acute (2) Nicotine dependence Status: Acute Qualifiers: Nicotine product type: cigarettes Substance use status: in withdrawal Qualified Code(s): F17.213 - Nicotine dependence, cigarettes, with withdrawal (3) Chronic back pain Status: Chronic Qualifiers: Back pain location: low back pain Back pain laterality: midline Sciatica presence: without sciatica Qualified Code(s): M54.5 - Low back pain; G89.29 - Other chronic pain - AMA Did Patient Leave Against Medical Advice: Yes (AMA)
--- NOTE | 2018-03-22 11:45 | PN ---
S Progress Note Note: PT INSISTING HE WANTS TO BE GIVEN METHADONE HERE IN DETOX. PT'S RECORDS SHOWS HE IS ON
[2018-03-22] MEDS ORDERED: chlordiazePOXIDE HCL 10 MG CAPSULE PO SCH (23:00)
[2018-03-23] MEDS ORDERED: diazePAM 5 MG TABLET PO SCH (10:00)
== END 2018-03-21 15:37 | disposition left against medical advice (07) | DRG 770 ==
LOC: YASAS 09:34 → Y3N 17:53
PROVIDERS: ADMIT Surgery; ATTEND Surgery
PROC: HZ2ZZZZ Detoxification Services for Substance Abuse Treatment (ICD-10-PCS; principal; 2018-03-19)
DX: F11.20 Opioid dependence, uncomplicated (principal); F10.230 Alcohol dependence with withdrawal, uncomplicated; F14.20 Cocaine dependence, uncomplicated; F17.210 Nicotine dependence, cigarettes, uncomplicated; M54.5 Low back pain; G89.29 Other chronic pain
CPT/HCPCS: 36415; 80053; 81003; 81015; 85027; 86593; 93005; 93010

== ENCOUNTER 2021-12-13 15:30 | Inpatient (IN) | payer OTHER ==
[2021-12-13 19:14] VITALS: BMI 36.3
[2021-12-13] MEDS ORDERED: MAGNESIUM HYDROX 2400MG/30ML ORAL SUSPENSION 30 ML CUP PO PRN (21:15)
[2021-12-13] MEDS ORDERED: BISMUTH SUBSALICYLATE 524 MG/30 ML PO PRN (21:15)
[2021-12-13] MEDS ORDERED: NICOTINE 10 MG CARTRIDGE (INHALER) IH PRN (21:15)
[2021-12-13] MEDS ORDERED: MAGNESIUM CITRATE 300 ML BOTTLE PO PRN (21:15)
[2021-12-13] MEDS ORDERED: ONDANSETRON *ODT* 4 MG TABLET SL PRN (21:15)
[2021-12-13] MEDS ORDERED: ACETAMINOPHEN 325 MG TABLET (FP) PO PRN ×2 (21:15)
[2021-12-13] MEDS ORDERED: MENTHOL/PHENOL 1 EACH UD MM PRN (21:15)
[2021-12-13] MEDS ORDERED: LOPERAMIDE HCL 2 MG CAPSULE PO PRN (21:15)
[2021-12-13] MEDS ORDERED: chlordiazePOXIDE HCL 25 MG CAPSULE PO PRN (21:15)
[2021-12-13] MEDS ORDERED: IBUPROFEN 400 MG TABLET (FP) PO PRN (21:15)
[2021-12-13] MEDS ORDERED: MAG HYDROX/AL HYDROX/SIMETH 30 ML UNIT-DOSE CUP PO PRN (21:15)
[2021-12-13] MEDS ORDERED: chlordiazePOXIDE HCL 25 MG CAPSULE PO ONE (21:45)
[2021-12-13] MEDS: THIAMINE HCL 100 MG TABLET (FP) PO SCH (22:55)
[2021-12-13] MEDS: hydrOXYzine PAMOATE 25 MG CAPSULE (FP) PO PRN (22:55)
[2021-12-13] MEDS: METHOCARBAMOL 500 MG TABLET PO PRN (22:55)
[2021-12-13] MEDS: MELATONIN 5 MG TABLETS PO PRN (22:55)
[2021-12-13] MEDS: chlordiazePOXIDE HCL 25 MG CAPSULE PO SCH (22:55)
[2021-12-14] MEDS ORDERED: methaDONE HCL 10 MG TABLET ONE (04:49)
[2021-12-14] MEDS ORDERED: methaDONE HCL 40 MG DISPERSABLE TABLET ONE (04:50)
[2021-12-14] MEDS: chlordiazePOXIDE HCL 25 MG CAPSULE PO SCH ×4 (05:19→22:13)
[2021-12-14] MEDS ORDERED: methaDONE HCL 10 MG TABLET PO ONE (06:00)
[2021-12-14] MEDS ORDERED: methaDONE 80 MG, methaDONE 20 MG PO SCH (06:00)
[2021-12-14] MEDS: PRENATAL VITAMINS W/ FOLIC ACID TABLET (FP) PO SCH (10:48)
[2021-12-14 12:41] LABS: HEMATOCRIT 39.4 % (35.4-49); HEMOGLOBIN 13.5 GM/dL (11.7-16.9); MCH 31.1 pg (25.7-33.7); MCHC 34.1 g/dl (32.0-35.9); MEAN CELL VOLUME 91.1 fl (80-96); MEAN PLT VOLUME 8.1 fl (7.5-11.1); PLATELET COUNT 201 10^3/uL (134-434); RBC 4.33 M/mm3 (4.00-5.60); RDW 13.6 % (11.9-15.9); WHITE BLOOD COUNT 4.9 K/mm3 (4.0-10.0)
[2021-12-14 13:01] LABS: ALBUMIN 3.3 g/dl (3.4-5.0); BLOOD UREA NITROGEN 11.6 mg/dL (7-18); CALCIUM 8.7 mg/dL (8.5-10.1)
[2021-12-14 13:05] LABS: CREATININE 1.2 mg/dL (0.55-1.3)
[2021-12-14 13:06] LABS: BILIRUBIN,TOTAL 0.4 mg/dL (0.2-1); TOT PROT 6.8 g/dl (6.4-8.2)
[2021-12-14] MEDS: amLODIPine BESYLATE 10 MG TABLET (FP) PO ONE ×2 (14:46→15:12)
[2021-12-14] MEDS: hydrOXYzine PAMOATE 25 MG CAPSULE (FP) PO PRN ×2 (17:34→22:14)
[2021-12-14] MEDS: MELATONIN 5 MG TABLETS PO PRN (22:14)
[2021-12-14] MEDS: METHOCARBAMOL 500 MG TABLET PO PRN (22:14)
[2021-12-14] MEDS: THIAMINE HCL 100 MG TABLET (FP) PO SCH (22:14)
[2021-12-15] MEDS: METHOCARBAMOL 500 MG TABLET PO PRN ×2 (05:42→22:15)
[2021-12-15] MEDS: chlordiazePOXIDE HCL 25 MG CAPSULE PO SCH ×4 (05:42→22:14)
[2021-12-15] MEDS ORDERED: methaDONE HCL 10 MG TABLET PO SCH (09:30)
[2021-12-15] MEDS ORDERED: amLODIPine BESYLATE 5 MG TABLET (FP) PO SCH (10:00)
[2021-12-15] MEDS ORDERED: methaDONE 80 MG, methaDONE 20 MG PO SCH (10:00)
[2021-12-15] MEDS: PRENATAL VITAMINS W/ FOLIC ACID TABLET (FP) PO SCH (10:07)
[2021-12-15] MEDS ORDERED: methaDONE HCL 10 MG TABLET ONE (10:52)
[2021-12-15] MEDS ORDERED: methaDONE HCL 40 MG DISPERSABLE TABLET ONE (10:53)
[2021-12-15] MEDS: methaDONE 80 MG, methaDONE 20 MG PO SCH (10:54)
[2021-12-15 15:07] LABS: SARS-CoV-2 NAA Not Detected (Not Detected)
[2021-12-15 16:07] LABS: SARS-CoV-2 NAA Not Detected (Not Detected)
[2021-12-15] MEDS: THIAMINE HCL 100 MG TABLET (FP) PO SCH (22:13)
[2021-12-16] MEDS ORDERED: chlordiazePOXIDE HCL 10 MG CAPSULE PO PRN
[2021-12-16] MEDS ORDERED: methaDONE HCL 10 MG TABLET ONE (03:27)
[2021-12-16] MEDS ORDERED: methaDONE HCL 40 MG DISPERSABLE TABLET ONE (03:27)
[2021-12-16] MEDS ORDERED: chlordiazePOXIDE HCL 10 MG CAPSULE PO SCH (05:00)
[2021-12-16] MEDS: methaDONE 80 MG, methaDONE 20 MG PO SCH (05:42)
[2021-12-16 06:56] VITALS: BP 143/80; PULSE 68; TEMP 97.9
[2021-12-17] MEDS ORDERED: chlordiazePOXIDE HCL 10 MG CAPSULE PO SCH (05:00)
[2021-12-18] MEDS ORDERED: chlordiazePOXIDE HCL 10 MG CAPSULE PO ONE (05:00)
== END 2021-12-16 09:12 | disposition left against medical advice (07) | DRG 770 ==
LOC: YASAS 15:30 → Y3N 21:10
PROVIDERS: ADMIT Allergy & Immunology; ATTEND Allergy & Immunology
PROC: HZ2ZZZZ Detoxification Services for Substance Abuse Treatment (ICD-10-PCS; principal; 2021-12-13)
DX: F10.230 Alcohol dependence with withdrawal, uncomplicated (principal); F11.20 Opioid dependence, uncomplicated; F14.20 Cocaine dependence, uncomplicated; F17.210 Nicotine dependence, cigarettes, uncomplicated; F41.9 Anxiety disorder, unspecified; I10 Essential (primary) hypertension; M54.50 Low back pain, unspecified; M25.471 Effusion, right ankle; M25.472 Effusion, left ankle; G89.29 Other chronic pain; Z86.19 Personal history of other infectious and parasitic diseases
CPT/HCPCS: 36415; 80053; 85027; 86593; 86780; 93005; 93010; C9803; U0003; U0005

== ENCOUNTER 2022-02-21 12:31 | Emergency (ER) | payer OTHER ==
[2022-02-21] MEDS ORDERED: ACETAMINOPHEN 325 MG TABLET (FP) PO ONE (12:47)
[2022-02-21 12:50] VITALS: BP 142/70; PULSE 74; TEMP 97.8; BMI 33.0
[2022-02-21] MEDS ORDERED: ACETAMINOPHEN 325 MG TABLET (FP) ONE (12:50)
== END 2022-02-21 14:01 | disposition home or self-care (01) ==
LOC: JER 12:31
DX: F11.20 Opioid dependence, uncomplicated (principal); M54.50 Low back pain, unspecified
CPT/HCPCS: 99283-25

== ENCOUNTER 2022-02-21 14:14 | Inpatient (IN) | payer OTHER ==
[2022-02-21 15:32] VITALS: BMI 36.9
[2022-02-21] MEDS ORDERED: METHOCARBAMOL 500 MG TABLET PO PRN (16:06)
[2022-02-21] MEDS ORDERED: MAGNESIUM HYDROX 2400MG/30ML ORAL SUSPENSION 30 ML CUP PO PRN (16:06)
[2022-02-21] MEDS ORDERED: NICOTINE 10 MG CARTRIDGE (INHALER) IH PRN (16:06)
[2022-02-21] MEDS ORDERED: BISMUTH SUBSALICYLATE 524 MG/30 ML PO PRN (16:06)
[2022-02-21] MEDS ORDERED: cloNIDine HCL 0.1 MG TABLET PO PRN (16:06)
[2022-02-21] MEDS ORDERED: DICYCLOMINE HCL 10 MG CAPSULE PO PRN (16:06)
[2022-02-21] MEDS ORDERED: methaDONE HCL 10 MG TABLET (FOR DETOX USE ONLY) PO ONE (16:06)
[2022-02-21] MEDS ORDERED: MAG HYDROX/AL HYDROX/SIMETH 30 ML UNIT-DOSE CUP PO PRN (16:06)
[2022-02-21] MEDS ORDERED: IBUPROFEN 400 MG TABLET (FP) PO PRN (16:06)
[2022-02-21] MEDS ORDERED: ONDANSETRON *ODT* 4 MG TABLET SL PRN (16:06)
[2022-02-21] MEDS ORDERED: BENZOCAINE/MENTHOL (CHLORASEPTIC ) LOZENGE MM PRN (16:06)
[2022-02-21] MEDS ORDERED: NICOTINE POLACRILEX 2 MG GUM BUC PRN (16:06)
[2022-02-21] MEDS ORDERED: MAGNESIUM CITRATE 300 ML BOTTLE PO PRN (16:06)
[2022-02-21] MEDS ORDERED: LOPERAMIDE HCL 2 MG CAPSULE PO PRN (16:06)
[2022-02-21] MEDS ORDERED: ACETAMINOPHEN 325 MG TABLET (FP) PO PRN ×2 (16:06)
[2022-02-21] MEDS ORDERED: chlordiazePOXIDE HCL 25 MG CAPSULE PO PRN (16:12)
[2022-02-21] MEDS: chlordiazePOXIDE HCL 25 MG CAPSULE PO SCH ×2 (18:36→22:21)
[2022-02-21] MEDS: hydrOXYzine PAMOATE 25 MG CAPSULE (FP) PO SCH ×2 (18:41→22:22)
[2022-02-21] MEDS: THIAMINE HCL 100 MG TABLET (FP) PO SCH (22:22)
[2022-02-21] MEDS: MELATONIN 5 MG TABLETS PO SCH (22:22)
[2022-02-22] MEDS: chlordiazePOXIDE HCL 25 MG CAPSULE PO SCH ×4 (05:56→23:37)
[2022-02-22] MEDS: hydrOXYzine PAMOATE 25 MG CAPSULE (FP) PO SCH ×5 (05:56→23:37)
[2022-02-22] MEDS ORDERED: methaDONE HCL 10 MG TABLET (FOR DETOX USE ONLY) ONE (09:20)
[2022-02-22] MEDS: PRENATAL VITAMINS W/ FOLIC ACID TABLET (FP) PO SCH (10:08)
[2022-02-22] MEDS: MELATONIN 5 MG TABLETS PO SCH (23:37)
[2022-02-22] MEDS: traZODone HCL 50 MG TABLET (FP) PO SCH (23:37)
[2022-02-22] MEDS: THIAMINE HCL 100 MG TABLET (FP) PO SCH (23:38)
[2022-02-23] MEDS: chlordiazePOXIDE HCL 25 MG CAPSULE PO SCH ×4 (06:33→22:08)
[2022-02-23] MEDS: hydrOXYzine PAMOATE 25 MG CAPSULE (FP) PO SCH ×5 (06:33→22:07)
[2022-02-23] MEDS ORDERED: methaDONE HCL 10 MG TABLET (FOR DETOX USE ONLY) PO ONE (10:00)
[2022-02-23] MEDS: PRENATAL VITAMINS W/ FOLIC ACID TABLET (FP) PO SCH (10:14)
[2022-02-23 11:10] LABS: HEMATOCRIT 38.5 % (35.4-49); HEMOGLOBIN 12.9 GM/dL (11.7-16.9); MCH 30.6 pg (25.7-33.7); MCHC 33.4 g/dl (32.0-35.9); MEAN CELL VOLUME 91.6 fl (80-96); PLATELET COUNT 243 10^3/uL (134-434); RBC 4.21 M/mm3 (4.00-5.60); WHITE BLOOD COUNT 4.1 K/mm3 (4.0-10.0)
[2022-02-23 11:43] LABS: CALCIUM 8.4 mg/dL (8.5-10.1)
[2022-02-23 11:46] LABS: CREATININE 1.1 mg/dL (0.55-1.3)
[2022-02-23 11:47] LABS: BILIRUBIN,TOTAL 0.3 mg/dL (0.2-1); TOT PROT 6.2 g/dl (6.4-8.2)
[2022-02-23] MEDS: traZODone HCL 50 MG TABLET (FP) PO SCH (22:07)
[2022-02-23] MEDS: THIAMINE HCL 100 MG TABLET (FP) PO SCH (22:07)
[2022-02-23] MEDS: MELATONIN 5 MG TABLETS PO SCH (22:08)
[2022-02-24] MEDS ORDERED: chlordiazePOXIDE HCL 10 MG CAPSULE PO PRN
[2022-02-24] MEDS ORDERED: chlordiazePOXIDE HCL 10 MG CAPSULE PO SCH (05:00)
[2022-02-24] MEDS: hydrOXYzine PAMOATE 25 MG CAPSULE (FP) PO SCH (05:53)
[2022-02-24] MEDS ORDERED: methaDONE HCL 10 MG TABLET (FOR DETOX USE ONLY) ONE (09:04)
[2022-02-24 09:22] VITALS: BP 126/79; PULSE 66; TEMP 97.1
[2022-02-25] MEDS ORDERED: chlordiazePOXIDE HCL 10 MG CAPSULE PO SCH (05:00)
[2022-02-25] MEDS ORDERED: methaDONE HCL 10 MG TABLET (FOR DETOX USE ONLY) PO ONE (10:00)
[2022-02-26] MEDS ORDERED: chlordiazePOXIDE HCL 10 MG CAPSULE PO ONE (05:00)
== END 2022-02-24 09:35 | disposition left against medical advice (07) | DRG 770 ==
LOC: YASAS 14:14 → Y6N 16:46
PROVIDERS: ADMIT Allergy & Immunology; ATTEND Allergy & Immunology
PROC: HZ2ZZZZ Detoxification Services for Substance Abuse Treatment (ICD-10-PCS; principal; 2022-02-21)
DX: F11.23 Opioid dependence with withdrawal (principal); F10.230 Alcohol dependence with withdrawal, uncomplicated; F14.20 Cocaine dependence, uncomplicated; F17.210 Nicotine dependence, cigarettes, uncomplicated; F19.282 Other psychoactive substance dependence with psychoactive substance-induced sleep disorder; F41.9 Anxiety disorder, unspecified; F32.A Depression, unspecified; M54.50 Low back pain, unspecified; G89.29 Other chronic pain; R41.82 Altered mental status, unspecified
CPT/HCPCS: 36415; 80053; 85027; 86593; 86780; C9803-CS; U0003; U0005

== ENCOUNTER 2022-04-24 08:29 | Inpatient (IN) | payer OTHER ==
[2022-04-24] MEDS ORDERED: NALOXONE HCL (KLOXXADO) 8 MG SPRAY NS PRN (09:25)
[2022-04-24] MEDS ORDERED: LOPERAMIDE HCL 2 MG CAPSULE PO PRN (09:25)
[2022-04-24] MEDS ORDERED: cloNIDine HCL 0.1 MG TABLET PO PRN (09:25)
[2022-04-24] MEDS ORDERED: NICOTINE 10 MG CARTRIDGE (INHALER) IH PRN (09:25)
[2022-04-24] MEDS ORDERED: MAGNESIUM CITRATE 300 ML BOTTLE PO PRN (09:25)
[2022-04-24] MEDS ORDERED: BISMUTH SUBSALICYLATE 524 MG/30 ML PO PRN (09:25)
[2022-04-24] MEDS ORDERED: MAGNESIUM HYDROX 2400MG/30ML ORAL SUSPENSION 30 ML CUP PO PRN (09:25)
[2022-04-24] MEDS ORDERED: BENZOCAINE/MENTHOL (CHLORASEPTIC ) LOZENGE MM PRN (09:25)
[2022-04-24] MEDS ORDERED: ACETAMINOPHEN 325 MG TABLET (FP) PO PRN ×2 (09:25)
[2022-04-24] MEDS ORDERED: IBUPROFEN 600 MG TABLET (FP) PO PRN (09:25)
[2022-04-24] MEDS ORDERED: MAG HYDROX/AL HYDROX/SIMETH 30 ML UNIT-DOSE CUP PO PRN (09:25)
[2022-04-24] MEDS ORDERED: ONDANSETRON *ODT* 4 MG TABLET SL PRN (09:25)
[2022-04-24] MEDS ORDERED: DICYCLOMINE HCL 10 MG CAPSULE PO PRN (09:25)
[2022-04-24] MEDS ORDERED: IBUPROFEN 400 MG TABLET (FP) PO PRN (09:25)
[2022-04-24 09:27] VITALS: BMI 39.3
[2022-04-24] MEDS ORDERED: chlordiazePOXIDE HCL 25 MG CAPSULE PO PRN (09:43)
[2022-04-24] MEDS ORDERED: HYDROCHLOROTHIAZIDE 12.5 MG CAPSULE (FP) ONE (09:49)
[2022-04-24] MEDS: hydrOXYzine PAMOATE 25 MG CAPSULE (FP) PO SCH ×4 (10:18→23:27)
[2022-04-24] MEDS: HYDROCHLOROTHIAZIDE 25 MG TABLET (FP) PO SCH (10:18)
[2022-04-24] MEDS ORDERED: methaDONE HCL 10 MG TABLET (FOR DETOX USE ONLY) PO ONE (10:30)
[2022-04-24] MEDS: chlordiazePOXIDE HCL 25 MG CAPSULE PO SCH ×3 (10:38→23:27)
[2022-04-24] MEDS: PRENATAL VITAMINS W/ FOLIC ACID TABLET (FP) PO SCH (10:38)
[2022-04-24 14:17] LABS: CALCIUM 9.4 mg/dL (8.5-10.1)
[2022-04-24 14:18] LABS: ALBUMIN 3.6 g/dl (3.4-5.0); BLOOD UREA NITROGEN 11.8 mg/dL (7-18)
[2022-04-24 14:21] LABS: CREATININE 1.1 mg/dL (0.55-1.3)
[2022-04-24 14:22] LABS: TOT PROT 7.7 g/dl (6.4-8.2)
[2022-04-24 14:23] LABS: BILIRUBIN,TOTAL 0.6 mg/dL (0.2-1)
[2022-04-24 14:25] LABS: HEMOGLOBIN 13.8 GM/dL (11.7-16.9); MCH 31.3 pg (25.7-33.7); MCHC 34.6 g/dl (32.0-35.9); MEAN CELL VOLUME 90.4 fl (80-96); MEAN PLT VOLUME 7.4 fl (7.5-11.1); PLATELET COUNT 226 10^3/uL (134-434); RBC 4.43 M/mm3 (4.00-5.60); RDW 13.2 % (11.9-15.9)
[2022-04-24] MEDS: THIAMINE HCL 100 MG TABLET (FP) PO SCH (23:27)
[2022-04-24] MEDS: MELATONIN 5 MG TABLETS PO SCH (23:27)
[2022-04-25] MEDS: chlordiazePOXIDE HCL 25 MG CAPSULE PO SCH ×4 (05:46→22:16)
[2022-04-25] MEDS: hydrOXYzine PAMOATE 25 MG CAPSULE (FP) PO SCH ×5 (05:47→22:16)
[2022-04-25] MEDS: METHOCARBAMOL 500 MG TABLET PO PRN (05:47)
[2022-04-25] MEDS ORDERED: methaDONE HCL 10 MG TABLET (FOR DETOX USE ONLY) ONE (09:27)
[2022-04-25] MEDS: HYDROCHLOROTHIAZIDE 25 MG TABLET (FP) PO SCH (10:28)
[2022-04-25] MEDS: PRENATAL VITAMINS W/ FOLIC ACID TABLET (FP) PO SCH (10:28)
[2022-04-25] MEDS: MELATONIN 5 MG TABLETS PO SCH (22:15)
[2022-04-25] MEDS: THIAMINE HCL 100 MG TABLET (FP) PO SCH (22:15)
[2022-04-26] MEDS: chlordiazePOXIDE HCL 25 MG CAPSULE PO SCH ×2 (05:21→10:52)
[2022-04-26] MEDS: hydrOXYzine PAMOATE 25 MG CAPSULE (FP) PO SCH ×3 (07:21→13:19)
[2022-04-26] MEDS ORDERED: methaDONE HCL 10 MG TABLET (FOR DETOX USE ONLY) PO ONE (10:00)
[2022-04-26] MEDS: HYDROCHLOROTHIAZIDE 25 MG TABLET (FP) PO SCH (10:52)
[2022-04-26] MEDS: PRENATAL VITAMINS W/ FOLIC ACID TABLET (FP) PO SCH (10:52)
[2022-04-26] MEDS ORDERED: COLLOIDAL OATMEAL 1 BAR EACH TP PRN (14:48)
[2022-04-26] MEDS ORDERED: NICOTINE POLACRILEX 4 MG GUM BUC PRN (14:48)
[2022-04-26] MEDS: MELATONIN 5 MG TABLETS PO SCH (23:21)
[2022-04-26] MEDS: THIAMINE HCL 100 MG TABLET (FP) PO SCH (23:22)
[2022-04-27] MEDS ORDERED: chlordiazePOXIDE HCL 10 MG CAPSULE PO PRN
[2022-04-27] MEDS ORDERED: chlordiazePOXIDE HCL 10 MG CAPSULE PO SCH (05:00)
[2022-04-27] MEDS ORDERED: methaDONE HCL 10 MG TABLET (FOR DETOX USE ONLY) ONE (09:13)
[2022-04-27] MEDS: PRENATAL VITAMINS W/ FOLIC ACID TABLET (FP) PO SCH (10:48)
[2022-04-27] MEDS: HYDROCHLOROTHIAZIDE 25 MG TABLET (FP) PO SCH (10:49)
[2022-04-27] MEDS: METHOCARBAMOL 500 MG TABLET PO PRN (18:00)
[2022-04-27] MEDS: THIAMINE HCL 100 MG TABLET (FP) PO SCH (22:17)
[2022-04-27] MEDS: MELATONIN 5 MG TABLETS PO SCH (22:17)
[2022-04-28] MEDS ORDERED: chlordiazePOXIDE HCL 10 MG CAPSULE PO SCH (05:00)
[2022-04-28] MEDS ORDERED: methaDONE HCL 10 MG TABLET (FOR DETOX USE ONLY) PO ONE (10:00)
[2022-04-28] MEDS: METHOCARBAMOL 500 MG TABLET PO PRN (10:31)
[2022-04-28] MEDS: HYDROCHLOROTHIAZIDE 25 MG TABLET (FP) PO SCH (10:31)
[2022-04-28] MEDS: PRENATAL VITAMINS W/ FOLIC ACID TABLET (FP) PO SCH (10:31)
[2022-04-28] MEDS: THIAMINE HCL 100 MG TABLET (FP) PO SCH (22:10)
[2022-04-28] MEDS: MELATONIN 5 MG TABLETS PO SCH (22:10)
[2022-04-28] MEDS: hydrOXYzine PAMOATE 25 MG CAPSULE (FP) PO SCH (22:12)
[2022-04-29] MEDS ORDERED: chlordiazePOXIDE HCL 10 MG CAPSULE PO ONE (05:00)
[2022-04-29 09:38] VITALS: BP 158/93; PULSE 78; TEMP 97.7
[2022-04-29] MEDS: HYDROCHLOROTHIAZIDE 25 MG TABLET (FP) PO SCH (10:17)
[2022-04-29] MEDS: PRENATAL VITAMINS W/ FOLIC ACID TABLET (FP) PO SCH (10:17)
== END 2022-04-29 12:35 | disposition other institution (70) | DRG 773 ==
LOC: YASAS 08:29 → Y6N 09:33
PROVIDERS: ADMIT Allergy & Immunology; ATTEND Surgery
PROC: HZ2ZZZZ Detoxification Services for Substance Abuse Treatment (ICD-10-PCS; principal; 2022-04-24)
DX: F11.23 Opioid dependence with withdrawal (principal); F10.230 Alcohol dependence with withdrawal, uncomplicated; F14.20 Cocaine dependence, uncomplicated; F17.210 Nicotine dependence, cigarettes, uncomplicated; F41.9 Anxiety disorder, unspecified; F32.A Depression, unspecified; I10 Essential (primary) hypertension
CPT/HCPCS: 36415; 80053; 82962; 85027; 86593; 86780; 87811; C9803-CS; U0003; U0005

== ENCOUNTER 2022-04-29 12:43 | Inpatient (IN) | payer OTHER ==
[2022-04-29] MEDS ORDERED: guaiFENesin 200 MG/10 ML 10 ML UNIT-DOSE CUPS PO PRN ×2 (13:07→13:14)
[2022-04-29] MEDS ORDERED: BENZOCAINE/MENTHOL (CHLORASEPTIC ) LOZENGE MM PRN ×2 (13:07→13:14)
[2022-04-29] MEDS ORDERED: P-EPHED 60MG/TRIPROLIDI 2.5MG TABLET PO PRN ×2 (13:07→13:14)
[2022-04-29] MEDS ORDERED: NICOTINE 10 MG CARTRIDGE (INHALER) IH PRN (13:14)
[2022-04-29] MEDS ORDERED: MAG HYDROX/AL HYDROX/SIMETH 30 ML UNIT-DOSE CUP PO PRN (13:14)
[2022-04-29] MEDS ORDERED: MAGNESIUM HYDROX 2400MG/30ML ORAL SUSPENSION 30 ML CUP PO PRN (13:14)
[2022-04-29] MEDS ORDERED: MAGNESIUM CITRATE 300 ML BOTTLE PO PRN (13:14)
[2022-04-29] MEDS ORDERED: IBUPROFEN 400 MG TABLET (FP) PO PRN (13:14)
[2022-04-29] MEDS ORDERED: ACETAMINOPHEN 325 MG TABLET (FP) PO PRN (13:14)
[2022-04-29] MEDS ORDERED: LOPERAMIDE HCL 2 MG CAPSULE PO PRN (13:14)
[2022-04-29] MEDS ORDERED: hydrOXYzine PAMOATE 25 MG CAPSULE (FP) PO SCH (14:00)
[2022-04-29] MEDS: hydrOXYzine PAMOATE 25 MG CAPSULE (FP) PO SCH ×3 (14:25→21:09)
[2022-04-29] MEDS: MELATONIN 5 MG TABLETS PO SCH (21:09)
[2022-04-29] MEDS: THIAMINE HCL 100 MG TABLET (FP) PO SCH (21:09)
[2022-04-30] MEDS: hydrOXYzine PAMOATE 25 MG CAPSULE (FP) PO SCH ×5 (06:54→21:21)
[2022-04-30] MEDS: PRENATAL VITAMINS W/ FOLIC ACID TABLET (FP) PO SCH (09:49)
[2022-04-30] MEDS: NICOTINE 7 MG/24 HOURS TOPICAL PATCH TD SCH (09:49)
[2022-04-30] MEDS: HYDROCHLOROTHIAZIDE 25 MG TABLET (FP) PO SCH (09:49)
[2022-04-30] MEDS: THIAMINE HCL 100 MG TABLET (FP) PO SCH (21:21)
[2022-04-30] MEDS: MELATONIN 5 MG TABLETS PO SCH (21:21)
[2022-05-01] MEDS: hydrOXYzine PAMOATE 25 MG CAPSULE (FP) PO SCH ×5 (06:41→21:55)
[2022-05-01] MEDS: PRENATAL VITAMINS W/ FOLIC ACID TABLET (FP) PO SCH (10:05)
[2022-05-01] MEDS: HYDROCHLOROTHIAZIDE 25 MG TABLET (FP) PO SCH (10:05)
[2022-05-01] MEDS: NICOTINE 7 MG/24 HOURS TOPICAL PATCH TD SCH (10:06)
[2022-05-01] MEDS: MELATONIN 5 MG TABLETS PO SCH (21:55)
[2022-05-01] MEDS: THIAMINE HCL 100 MG TABLET (FP) PO SCH (21:55)
[2022-05-02] MEDS: hydrOXYzine PAMOATE 25 MG CAPSULE (FP) PO SCH ×5 (06:21→21:23)
[2022-05-02] MEDS: NICOTINE 7 MG/24 HOURS TOPICAL PATCH TD SCH (10:47)
[2022-05-02] MEDS: PRENATAL VITAMINS W/ FOLIC ACID TABLET (FP) PO SCH (10:47)
[2022-05-02] MEDS: HYDROCHLOROTHIAZIDE 25 MG TABLET (FP) PO SCH (10:48)
[2022-05-02] MEDS: MELATONIN 5 MG TABLETS PO SCH (21:24)
[2022-05-02] MEDS: THIAMINE HCL 100 MG TABLET (FP) PO SCH (21:24)
[2022-05-03] MEDS: hydrOXYzine PAMOATE 25 MG CAPSULE (FP) PO SCH ×5 (07:13→23:51)
[2022-05-03] MEDS: PRENATAL VITAMINS W/ FOLIC ACID TABLET (FP) PO SCH (10:24)
[2022-05-03] MEDS: NICOTINE 7 MG/24 HOURS TOPICAL PATCH TD SCH (10:24)
[2022-05-03] MEDS: HYDROCHLOROTHIAZIDE 25 MG TABLET (FP) PO SCH (10:24)
[2022-05-03] MEDS: THIAMINE HCL 100 MG TABLET (FP) PO SCH (23:51)
[2022-05-03] MEDS: MELATONIN 5 MG TABLETS PO SCH (23:51)
[2022-05-04] MEDS: hydrOXYzine PAMOATE 25 MG CAPSULE (FP) PO SCH ×5 (06:45→21:35)
[2022-05-04] MEDS: HYDROCHLOROTHIAZIDE 25 MG TABLET (FP) PO SCH (10:33)
[2022-05-04] MEDS: PRENATAL VITAMINS W/ FOLIC ACID TABLET (FP) PO SCH (10:33)
[2022-05-04] MEDS: NICOTINE 7 MG/24 HOURS TOPICAL PATCH TD SCH (10:34)
[2022-05-04] MEDS: MELATONIN 5 MG TABLETS PO SCH (21:35)
[2022-05-04] MEDS: THIAMINE HCL 100 MG TABLET (FP) PO SCH (21:35)
[2022-05-05] MEDS: hydrOXYzine PAMOATE 25 MG CAPSULE (FP) PO SCH ×2 (06:36→10:34)
[2022-05-05 06:45] VITALS: TEMP 97.5
[2022-05-05] MEDS: HYDROCHLOROTHIAZIDE 25 MG TABLET (FP) PO SCH (10:34)
[2022-05-05] MEDS: PRENATAL VITAMINS W/ FOLIC ACID TABLET (FP) PO SCH (10:34)
[2022-05-05] MEDS: NICOTINE 7 MG/24 HOURS TOPICAL PATCH TD SCH (10:34)
[2022-05-05 12:14] VITALS: BP 151/89; PULSE 94
== END 2022-05-05 10:17 | disposition home or self-care (01) | DRG 772 ==
LOC: YASAS 12:43 → Y3W 12:44
PROVIDERS: ADMIT Allergy & Immunology; ATTEND Psychiatry & Neurology Pain Medicine
PROC: HZ42ZZZ Group Counseling for Substance Abuse Treatment, Cognitive-Behavioral (ICD-10-PCS; principal; 2022-04-29)
DX: F11.20 Opioid dependence, uncomplicated (principal); F14.20 Cocaine dependence, uncomplicated; F17.210 Nicotine dependence, cigarettes, uncomplicated; I10 Essential (primary) hypertension

== ENCOUNTER 2022-05-19 03:37 | Observation (INO) | payer OTHER ==
[2022-05-19 03:54] VITALS: BMI 39.3
[2022-05-19] MEDS ORDERED: ACETAMINOPHEN 325 MG TABLET (FP) PO ONE (03:55)
[2022-05-19] MEDS ORDERED: SODIUM CHLORIDE 0.9% 500 ML INFUS.BAG IV ONE (04:14)
[2022-05-19] MEDS ORDERED: ACETAMINOPHEN 325 MG TABLET (FP) ONE (04:39)
[2022-05-19] MEDS ORDERED: METOCLOPRAMIDE HCL INJECTION 10 MG/2 ML VIAL IVPB ONE (05:31)
[2022-05-19 05:32] LABS: BASO % 0.9 % (0-2.0); EOS % 0.1 % (0-4.5); HEMOGLOBIN 14.9 GM/dL (11.7-16.9); LYMPH % 18.5 % (8-40); MCH 31.1 pg (25.7-33.7); MCHC 34.6 g/dl (32.0-35.9); MEAN CELL VOLUME 89.9 fl (80-96); MEAN PLT VOLUME 7.7 fl (7.5-11.1); MONO % 9.7 % (3.8-10.2); NEUT % 70.8 % (42.8-82.8); PLATELET COUNT 283 10^3/uL (134-434); RBC 4.78 M/mm3 (4.00-5.60); RDW 13.1 % (11.9-15.9); WHITE BLOOD COUNT 9.4 K/mm3 (4.0-10.0)
[2022-05-19 05:46] LABS: EPI CELLS 13 /uL (0-25.1); HYALINE CASTS 13 /uL (0-3.1); URINE APPEARANCE CLEAR; URINE BACTERIA 4 /uL (0-1359); URINE BILIRUBIN 1+ (NEGATIVE); URINE COLOR DK YELLOW; URINE GLUCOSE (UA) NEGATIVE (NEGATIVE); URINE KETONE TRACE (NEGATIVE); URINE LEUK ESTERASE NEGATIVE (NEGATIVE); URINE NITRITE NEGATIVE (NEGATIVE); URINE PROTEIN 1+ (NEGATIVE); URINE RBC 7 /uL (0-23.9); URINE WBC 13 /uL (0-25.8)
[2022-05-19 05:50] LABS: CHLORIDE 106 mmol/L (98-107); SODIUM 140 mmol/L (136-145)
[2022-05-19 05:52] LABS: CALCIUM 8.9 mg/dL (8.5-10.1)
[2022-05-19 05:53] LABS: ALBUMIN 4.1 g/dl (3.4-5.0); ANION GAP 11 MMOL/L (8-16); BLOOD UREA NITROGEN 12.6 mg/dL (7-18); CO2 23 mmol/L (21-32); GLUCOSE,RANDOM 127 mg/dL (74-106)
[2022-05-19 05:56] LABS: CREATININE 1.5 mg/dL (0.55-1.3); SGOT/AST 109 U/L (15-37); SGPT/ALT 36 U/L (13-61)
[2022-05-19 05:57] LABS: BILIRUBIN,TOTAL 1.3 mg/dL (0.2-1); TOT PROT 8.3 g/dl (6.4-8.2)
[2022-05-19 05:59] LABS: ALK PHOS 106 U/L (45-117)
[2022-05-19] MEDS ORDERED: METOCLOPRAMIDE HCL INJECTION 10 MG/2 ML VIAL ONE (06:13)
[2022-05-19] MEDS ORDERED: ACETAMINOPHEN 325 MG TABLET (FP) PO PRN (07:57)
[2022-05-19 08:42] LABS: LIPASE 61 U/L (73-393)
[2022-05-19 08:45] LABS: CHOLESTEROL 156 mg/dL (50-200); TRIGLYCERIDES 59 mg/dL (0-150)
[2022-05-19 08:46] LABS: URINE CRYSTALS MANY AMORPHOUS URATE /hpf
[2022-05-19 08:46] LABS: LDL CHOLESTEROL (ONLY SJRH) 95 mg/dL (5-100)
[2022-05-19 08:47] LABS: HDL CHOLESTEROL 57 mg/dL (40-60)
[2022-05-19] MEDS: PANTOPRAZOLE 20 MG TABLET PO SCH (11:15)
[2022-05-19] MEDS: SODIUM CHLORIDE 1,000 ML IV SCH (11:15)
[2022-05-19] MEDS: amLODIPine BESYLATE 5 MG TABLET (FP) PO SCH (11:15)
[2022-05-19] MEDS: ASPIRIN COATED 81 MG TABLET.EC PO SCH (11:15)
[2022-05-19] MEDS: HEPARIN NA (PORCINE) 5,000 UNITS/ML 1ML VIAL SQ SCH ×2 (14:00→22:10)
[2022-05-19] MEDS ORDERED: cloNIDine HCL 0.1 MG TABLET PO PRN (14:28)
[2022-05-20] MEDS: SODIUM CHLORIDE 1,000 ML IV SCH ×2 (01:20→11:08)
[2022-05-20] MEDS: HEPARIN NA (PORCINE) 5,000 UNITS/ML 1ML VIAL SQ SCH ×3 (06:17→23:20)
[2022-05-20 07:37] LABS: BASO % 0.7 % (0-2.0); HEMATOCRIT 36.1 % (35.4-49); HEMOGLOBIN 12.6 GM/dL (11.7-16.9); LYMPH % 48.3 % (8-40); MCH 30.9 pg (25.7-33.7); MCHC 34.9 g/dl (32.0-35.9); MEAN CELL VOLUME 88.6 fl (80-96); MEAN PLT VOLUME 7.8 fl (7.5-11.1); MONO % 11.5 % (3.8-10.2); NEUT % 36.5 % (42.8-82.8); PLATELET COUNT 217 10^3/uL (134-434); RBC 4.07 M/mm3 (4.00-5.60); WHITE BLOOD COUNT 4.6 K/mm3 (4.0-10.0)
[2022-05-20 08:00] LABS: BLOOD UREA NITROGEN 10.7 mg/dL (7-18); MAGNESIUM 1.9 mg/dL (1.8-2.4)
[2022-05-20 08:01] LABS: CALCIUM 8.3 mg/dL (8.5-10.1)
[2022-05-20 08:02] LABS: PHOSPHOROUS 2.9 mg/dL (2.5-4.9)
[2022-05-20 08:03] LABS: BILIRUBIN,TOTAL 1.4 mg/dL (0.2-1)
[2022-05-20 08:27] VITALS: RESP 18
[2022-05-20] MEDS: amLODIPine BESYLATE 5 MG TABLET (FP) PO SCH ×2 (08:32→09:00)
[2022-05-20] MEDS: PANTOPRAZOLE 20 MG TABLET PO SCH (11:08)
[2022-05-20] MEDS: ASPIRIN COATED 81 MG TABLET.EC PO SCH (11:09)
[2022-05-20] MEDS: HYDROCHLOROTHIAZIDE 25 MG TABLET (FP) PO SCH (13:33)
[2022-05-21] MEDS: HEPARIN NA (PORCINE) 5,000 UNITS/ML 1ML VIAL SQ SCH ×2 (06:38→14:00)
[2022-05-21 07:39] LABS: HEMATOCRIT 39.1 % (35.4-49); HEMOGLOBIN 13.5 GM/dL (11.7-16.9); MCH 30.9 pg (25.7-33.7); MCHC 34.6 g/dl (32.0-35.9); MEAN CELL VOLUME 89.5 fl (80-96); MEAN PLT VOLUME 7.7 fl (7.5-11.1); PLATELET COUNT 234 10^3/uL (134-434); RBC 4.37 M/mm3 (4.00-5.60); RDW 13.1 % (11.9-15.9); WHITE BLOOD COUNT 4.8 K/mm3 (4.0-10.0)
[2022-05-21 08:00] LABS: CALCIUM 8.9 mg/dL (8.5-10.1)
[2022-05-21 08:01] LABS: ALBUMIN 3.2 g/dl (3.4-5.0); BLOOD UREA NITROGEN 12.3 mg/dL (7-18)
[2022-05-21 08:33] LABS: BILIRUBIN,TOTAL 1.2 mg/dL (0.2-1); CREATININE 1.1 mg/dL (0.55-1.3); PHOSPHOROUS 3.4 mg/dL (2.5-4.9); TOT PROT 6.6 g/dl (6.4-8.2)
[2022-05-21 09:16] VITALS: BP 147/78; PULSE 73; TEMP 98.2
[2022-05-21] MEDS: amLODIPine BESYLATE 5 MG TABLET (FP) PO SCH (10:39)
[2022-05-21] MEDS: ASPIRIN COATED 81 MG TABLET.EC PO SCH (10:39)
[2022-05-21] MEDS: PANTOPRAZOLE 20 MG TABLET PO SCH (10:39)
[2022-05-21] MEDS: HYDROCHLOROTHIAZIDE 25 MG TABLET (FP) PO SCH (10:39)
== END 2022-05-21 15:45 | disposition home or self-care (01) ==
LOC: JER 03:37 → JERBED 06:50 → J4W 10:53
PROVIDERS: ADMIT Internal Medicine
PROC: 3E033GC Introduction of Other Therapeutic Substance into Peripheral Vein, Percutaneous Approach (ICD-10-PCS; principal; 2022-05-19)
PROC: 3E0337Z Introduction of Electrolytic and Water Balance Substance into Peripheral Vein, Percutaneous Approach (ICD-10-PCS; 2022-05-19)
DX: R07.9 Chest pain, unspecified (principal); R77.8 Other specified abnormalities of plasma proteins; I27.20 Pulmonary hypertension, unspecified; R00.0 Tachycardia, unspecified; N28.89 Other specified disorders of kidney and ureter; F19.10 Other psychoactive substance abuse, uncomplicated; E66.9 Obesity, unspecified; Z68.39 Body mass index [BMI] 39.0-39.9, adult; R51.9 Headache, unspecified; R11.2 Nausea with vomiting, unspecified; R61 Generalized hyperhidrosis; R10.31 Right lower quadrant pain; F17.210 Nicotine dependence, cigarettes, uncomplicated
CPT/HCPCS: 36415; 71045-TC-FY; 74176-TC; 78452-TC; 80053; 80061; 81003; 83690; 83735; 84100; 84443; 84484; 85025; 85027; 87086; 93005; 93010; 93017; 93306-TC; 96361; 96374; 99285-25; A9502; C9803-CS; G0378; J1644; U0003; U0005

== ENCOUNTER 2023-03-02 13:48 | Inpatient (IN) | payer OTHER ==
[2023-03-02 15:29] VITALS: BMI 38.0
[2023-03-02] MEDS ORDERED: ACETAMINOPHEN 325 MG TABLET (FP) PO PRN (16:42)
[2023-03-02] MEDS ORDERED: NICOTINE 10 MG CARTRIDGE (INHALER) IH PRN (16:42)
[2023-03-02] MEDS ORDERED: BENZONATATE 200 MG CAPSULE PO PRN (16:42)
[2023-03-02] MEDS ORDERED: MAGNESIUM HYDROX 2400MG/30ML ORAL SUSPENSION 30 ML CUP PO PRN (16:42)
[2023-03-02] MEDS ORDERED: NICOTINE POLACRILEX 4 MG GUM BUC PRN (16:42)
[2023-03-02] MEDS ORDERED: methaDONE HCL 10 MG TABLET (FOR DETOX USE ONLY) PO ONE (16:42)
[2023-03-02] MEDS ORDERED: LOPERAMIDE HCL 2 MG CAPSULE PO PRN (16:42)
[2023-03-02] MEDS ORDERED: NALOXONE HCL 0.4 MG/ML VIAL IM PRN (16:42)
[2023-03-02] MEDS ORDERED: guaiFENesin 600 MG TABLET.ER (FP) PO PRN (16:42)
[2023-03-02] MEDS ORDERED: BENZOCAINE/MENTHOL (CHLORASEPTIC ) LOZENGE MM PRN (16:42)
[2023-03-02] MEDS ORDERED: LORazepam 1 MG TABLET PO PRN (16:42)
[2023-03-02] MEDS ORDERED: ONDANSETRON *ODT* 4 MG TABLET SL PRN (16:42)
[2023-03-02] MEDS ORDERED: MAG HYDROX/AL HYDROX/SIMETH 30 ML UNIT-DOSE CUP PO PRN (16:42)
[2023-03-02] MEDS ORDERED: DICYCLOMINE HCL 10 MG CAPSULE PO PRN (16:42)
[2023-03-02] MEDS ORDERED: hydrOXYzine PAMOATE 25 MG CAPSULE (FP) PO PRN (16:42)
[2023-03-02] MEDS ORDERED: cloNIDine HCL 0.1 MG TABLET PO PRN (16:42)
[2023-03-02] MEDS ORDERED: BISMUTH SUBSALICYLATE 524 MG/30 ML PO PRN (16:42)
[2023-03-02] MEDS ORDERED: POLYETHYLENE GLYCOL (HEALTHYLAX) 3350 17 GM PACKET PO PRN (16:42)
[2023-03-02] MEDS ORDERED: LORazepam 2 MG TABLET PO ONE (16:42)
[2023-03-02] MEDS ORDERED: NALOXONE HCL (KLOXXADO) 8 MG SPRAY NS PRN (16:42)
[2023-03-02] MEDS ORDERED: IBUPROFEN 400 MG TABLET (FP) PO PRN (16:42)
[2023-03-02] MEDS ORDERED: methaDONE HCL 10 MG TABLET (FOR DETOX USE ONLY) ONE (17:17)
[2023-03-02] MEDS ORDERED: LORazepam 2 MG TABLET ONE (17:17)
[2023-03-02] MEDS: LORazepam 2 MG TABLET PO SCH ×2 (18:01→22:25)
[2023-03-02] MEDS: PRENATAL VITAMINS W/ FOLIC ACID TABLET (FP) PO SCH (18:02)
[2023-03-02] MEDS: MELATONIN 5 MG TABLETS PO SCH (22:25)
[2023-03-02] MEDS: THIAMINE HCL 100 MG TABLET (FP) PO SCH (22:25)
[2023-03-03] MEDS: LORazepam 2 MG TABLET PO SCH ×4 (04:32→22:40)
[2023-03-03] MEDS: METHOCARBAMOL 500 MG TABLET PO PRN ×2 (04:33→22:40)
[2023-03-03] MEDS: PRENATAL VITAMINS W/ FOLIC ACID TABLET (FP) PO SCH (10:22)
[2023-03-03] MEDS: amLODIPine BESYLATE 5 MG TABLET (FP) PO SCH (10:22)
[2023-03-03] MEDS: HYDROCHLOROTHIAZIDE 25 MG TABLET (FP) PO SCH (10:22)
[2023-03-03] MEDS: ASPIRIN COATED 81 MG TABLET.EC PO SCH (10:22)
[2023-03-03 11:08] LABS: HEMATOCRIT 35.6 % (35.4-49); HEMOGLOBIN 12.7 GM/dL (11.7-16.9); MCH 31.7 pg (25.7-33.7); MCHC 35.6 g/dl (32.0-35.9); MEAN CELL VOLUME 88.9 fl (80-96); MEAN PLT VOLUME 7.9 fl (7.5-11.1); PLATELET COUNT 219 10^3/uL (134-434); WHITE BLOOD COUNT 4.7 K/mm3 (4.0-10.0)
[2023-03-03 11:12] LABS: POTASSIUM 3.7 mmol/L (3.5-5.1)
[2023-03-03 11:16] LABS: ALBUMIN 3.1 g/dl (3.4-5.0); CALCIUM 8.6 mg/dL (8.5-10.1)
[2023-03-03 11:21] LABS: BILIRUBIN,TOTAL 0.9 mg/dL (0.2-1); TOT PROT 6.4 g/dl (6.4-8.2)
[2023-03-03] MEDS: LACTULOSE 20 GM/30 ML UDC (FOR ORAL USE ONLY) PO SCH ×3 (14:08→22:39)
[2023-03-03] MEDS: MELATONIN 5 MG TABLETS PO SCH (22:40)
[2023-03-03] MEDS: THIAMINE HCL 100 MG TABLET (FP) PO SCH (22:40)
[2023-03-04] MEDS: IBUPROFEN 600 MG TABLET (FP) PO PRN ×3 (01:36→22:21)
[2023-03-04] MEDS: LORazepam 1 MG TABLET PO SCH ×4 (06:05→22:19)
[2023-03-04] MEDS ORDERED: methaDONE HCL 10 MG TABLET (FOR DETOX USE ONLY) PO ONE (10:00)
[2023-03-04] MEDS: ASPIRIN COATED 81 MG TABLET.EC PO SCH (10:12)
[2023-03-04] MEDS: amLODIPine BESYLATE 5 MG TABLET (FP) PO SCH (10:12)
[2023-03-04] MEDS: PRENATAL VITAMINS W/ FOLIC ACID TABLET (FP) PO SCH (10:12)
[2023-03-04] MEDS: HYDROCHLOROTHIAZIDE 25 MG TABLET (FP) PO SCH (10:12)
[2023-03-04] MEDS: LACTULOSE 20 GM/30 ML UDC (FOR ORAL USE ONLY) PO SCH ×4 (10:16→22:18)
[2023-03-04] MEDS: MELATONIN 5 MG TABLETS PO SCH (22:18)
[2023-03-04] MEDS: THIAMINE HCL 100 MG TABLET (FP) PO SCH (22:18)
[2023-03-04] MEDS: METHOCARBAMOL 500 MG TABLET PO PRN (22:18)
[2023-03-05] MEDS ORDERED: LORazepam 0.5 MG TABLET PO PRN
[2023-03-05] MEDS: LORazepam 0.5 MG TABLET PO SCH ×4 (05:28→22:38)
[2023-03-05] MEDS: LACTULOSE 20 GM/30 ML UDC (FOR ORAL USE ONLY) PO SCH (10:04)
[2023-03-05] MEDS: amLODIPine BESYLATE 5 MG TABLET (FP) PO SCH (10:09)
[2023-03-05] MEDS: HYDROCHLOROTHIAZIDE 25 MG TABLET (FP) PO SCH (10:09)
[2023-03-05] MEDS: PRENATAL VITAMINS W/ FOLIC ACID TABLET (FP) PO SCH (10:09)
[2023-03-05] MEDS: ASPIRIN COATED 81 MG TABLET.EC PO SCH (10:09)
[2023-03-05] MEDS: THIAMINE HCL 100 MG TABLET (FP) PO SCH (22:36)
[2023-03-05] MEDS: MELATONIN 5 MG TABLETS PO SCH (22:36)
[2023-03-06] MEDS ORDERED: LORazepam 0.5 MG TABLET PO ONE (05:00)
[2023-03-06] MEDS ORDERED: methaDONE HCL 10 MG TABLET (FOR DETOX USE ONLY) PO ONE (10:00)
[2023-03-06] MEDS: PRENATAL VITAMINS W/ FOLIC ACID TABLET (FP) PO SCH (10:10)
[2023-03-06] MEDS: ASPIRIN COATED 81 MG TABLET.EC PO SCH (10:11)
[2023-03-06] MEDS: HYDROCHLOROTHIAZIDE 25 MG TABLET (FP) PO SCH ×2 (10:14→10:41)
[2023-03-06] MEDS: IBUPROFEN 600 MG TABLET (FP) PO PRN (10:14)
[2023-03-06] MEDS: amLODIPine BESYLATE 5 MG TABLET (FP) PO SCH ×2 (10:14→10:41)
[2023-03-06] MEDS ORDERED: amLODIPine BESYLATE 5 MG TABLET (FP) PO ONE (17:04)
[2023-03-06] MEDS ORDERED: amLODIPine BESYLATE 10 MG TABLET (FP) PO ONE (17:04)
[2023-03-06] MEDS: THIAMINE HCL 100 MG TABLET (FP) PO SCH (22:12)
[2023-03-06] MEDS: MELATONIN 5 MG TABLETS PO SCH (22:12)
[2023-03-07 06:42] VITALS: BP 166/92; PULSE 69; RESP 17; TEMP 97.1
[2023-03-07] MEDS: PRENATAL VITAMINS W/ FOLIC ACID TABLET (FP) PO SCH (09:55)
[2023-03-07] MEDS: ASPIRIN COATED 81 MG TABLET.EC PO SCH (09:55)
[2023-03-07] MEDS: HYDROCHLOROTHIAZIDE 25 MG TABLET (FP) PO SCH (09:55)
[2023-03-07] MEDS ORDERED: amLODIPine BESYLATE 10 MG TABLET (FP) PO SCH (10:00)
== END 2023-03-07 09:19 | disposition home or self-care (01) | DRG 773 ==
LOC: YASAS 13:48 → Y3N 17:02
PROVIDERS: ADMIT Allergy & Immunology; ATTEND Surgery
PROC: HZ2ZZZZ Detoxification Services for Substance Abuse Treatment (ICD-10-PCS; principal; 2023-03-02)
DX: F11.23 Opioid dependence with withdrawal (principal); F10.230 Alcohol dependence with withdrawal, uncomplicated; F17.210 Nicotine dependence, cigarettes, uncomplicated; F39 Unspecified mood [affective] disorder; I10 Essential (primary) hypertension; R79.89 Other specified abnormal findings of blood chemistry; E66.9 Obesity, unspecified; Z68.38 Body mass index [BMI] 38.0-38.9, adult
CPT/HCPCS: 36415; 80053; 82140; 85027; 86593; 86780; 87811; C9803-CS; U0003; U0005